=== PATIENT | female | born 1975 | race Caucasian/White ===

== ENCOUNTER 2016-03-01 19:53 | Emergency (ER) | payer MEDICARE ==
[2015-05-21 10:13] VITALS: BMI 45.8
[~2016-03-01 19:53] MED LIST: ATIVAN1 MG PO; BUSPAR10 MG PO; ESTRACE1 MG PO; GLIMEPIRIDE4 MG PO; GLUCOPHAGE500 MG PO; IMIPRAMINE10 MG PO; LEXAPRO5 MG PO; SYNTHROID150 MCG PO; SYNTHROID25 MCG PO; SYNTHROID300 MCG PO; TOFRANIL50 MG PO; TOPAMAX25 MG PO; ULTRAM50 MG PO; VALIUM5 MG PO; VITAMIN D250000 UNIT PO; WELLBUTRIN XL150 M1 PO
[2016-03-01 20:38] LABS: BASOPHILS 0.3 % (0.0-2.0); EOSINOPHILS 1.1 % (0-7); HEMATOCRIT 38.4 % (36.0-48.0); HEMOGLOBIN 13.3 g/dL (12-16); IMMATURE GRANULOCYTES 0.5 % (0-5); LYMPHOCYTES 58.4 % (15-50); MCHC 34.6 g/dL (31.0-37.0); MCV 86.7 fL (80.0-100.0); MEAN PLATELET VOLUME 8.7 fL (7.4-10.4); MONOCYTES 7.5 % (2-11); NEUTROPHILS 32.2 % (40-80); PLATELET COUNT 229 10x3/uL (130-400); RBC 4.43 10x6/uL (4.00-5.40); RDW 13.4 % (11.5-14.5); WBC 6.2 10x3/uL (4.8-10.8)
[2016-03-01 21:08] LABS: ALBUMIN 3.2 g/dL (3.4-5.0); ALKALINE PHOSPHATASE 53 U/L (46-116); ALT (SGPT) 47 U/L (10-68); AMYLASE - SERUM 43 U/L (25-115); BILIRUBIN - TOTAL 0.31 mg/dL (0.2-1.3); CALC OSMOLALITY 285 mosm/kg (275-300); CALCIUM 9.5 mg/dL (8.5-10.1); CARBON DIOXIDE 25.7 mmol/L (21.0-32.0); CHLORIDE - SERUM 100 mmol/L (98-107); CREATININE - SERUM 1.1 mg/dL (0.6-1.3); GLUCOSE 335 mg/dL (74-106); LIPASE 299 U/L (73-393); POTASSIUM - SERUM 4.1 mmol/L (3.5-5.1); PRO BNP 225 pg/mL (0-125); PROTEIN - SERUM 7.1 g/dL (6.4-8.2); SODIUM 137 mmol/L (136-145); THYROID STIMULATING HORMONE 0.04 uIU/mL (0.36-3.74); UREA NITROGEN 11 mg/dL (7-18); eGFR NON AFRICAN AMERICAN 59 mL/min (90-120)
[2016-03-01 21:09] LABS: TROPONIN-I < 0.017 ng/mL (0.000-0.060)
== END 2016-03-01 23:57 | disposition home or self-care (01) ==
LOC: D.ER 19:53
PROVIDERS: Family Medicine
DX: J06.9 Acute upper respiratory infection, unspecified (principal); F41.9 Anxiety disorder, unspecified; F32.9 Major depressive disorder, single episode, unspecified; E11.9 Type 2 diabetes mellitus without complications

== ENCOUNTER 2016-03-11 13:14 | Inpatient (IN) | payer MEDICARE ==
[~2016-03-11] VITALS: Ht 165.1 cm; Wt 77.0 kg
[2016-03-11 14:29] LABS: BASOPHILS 0.2 % (0.0-2.0); EOSINOPHILS 2.1 % (0-7); HEMATOCRIT 37.4 % (36.0-48.0); HEMOGLOBIN 12.9 g/dL (12-16); IMMATURE GRANULOCYTES 0.4 % (0-5); LYMPHOCYTES 47.4 % (15-50); MCH 29.7 pg (26.0-34.0); MCHC 34.5 g/dL (31.0-37.0); MONOCYTES 7.2 % (2-11); NEUTROPHILS 42.7 % (40-80); PLATELET COUNT 219 10x3/uL (130-400); RBC 4.35 10x6/uL (4.00-5.40); RDW 13.8 % (11.5-14.5); WBC 4.9 10x3/uL (4.8-10.8)
[2016-03-11 14:58] LABS: APPEARANCE HAZY (CLEAR); BILIRUBIN NEGATIVE (NEGATIVE); COLOR YELLOW (YELLOW); GLUCOSE 1000 mg/dL (NEGATIVE); KETONE NEGATIVE (NEGATIVE); LEUKOCYTE ESTERASE NEGATIVE (NEGATIVE); NITRITE NEGATIVE (NEGATIVE); PROTEIN NEGATIVE (NEGATIVE); SPECIFIC GRAVITY 1.015 (1.005-1.020); UROBILINOGEN NORMAL (NORMAL)
[2016-03-11 14:59] LABS: BACTERIA MANY /hpf (NONE SEEN); EPITHELIAL CELLS 0-5 /hpf (0-5); RED CELLS - URINE 0-5 /hpf (0-5); WHITE CELLS - URINE 0-5 /hpf (0-5)
[2016-03-11 15:03] LABS: ALBUMIN 3.4 g/dL (3.4-5.0); ALKALINE PHOSPHATASE 47 U/L (46-116); ALT (SGPT) 33 U/L (10-68); BILIRUBIN - TOTAL 0.26 mg/dL (0.2-1.3); CALC OSMOLALITY 288 mosm/kg (275-300); CALCIUM 9.1 mg/dL (8.5-10.1); CARBON DIOXIDE 24.5 mmol/L (21.0-32.0); CHLORIDE - SERUM 98 mmol/L (98-107); POTASSIUM - SERUM 4.1 mmol/L (3.5-5.1); PROTEIN - SERUM 6.8 g/dL (6.4-8.2); SODIUM 135 mmol/L (136-145); THYROID STIMULATING HORMONE 0.02 uIU/mL (0.36-3.74); UREA NITROGEN 10 mg/dL (7-18); eGFR NON AFRICAN AMERICAN 66 mL/min (90-120)
[2016-03-11 15:10] LABS: GLUCOSE 462 mg/dL (74-106)
[2016-03-11 15:29] LABS: KETONE - SERUM SMALL mg/dL (NEGATIVE)
--- NOTE | 2016-03-11 16:36 | NUR ---
Patient Name: JANN Coppola RUBALCAVA Admission Status: ER Accout number: [id number] Admission Date: 03-11-2016 : 1975 Admission Diagnosis: hyperglycemia Attending: SHAMIR Current LOS: 1 Anticipated DC Date: 03/13/16 Planned Disposition: Return home to her parents home. Primary Insurance: MEDICARE A & B Discharge Planning Comments: CM met with patient to complete initial discharge planning assessment. Patient gave consent to complete assessment. Patient lives at home with her parents. She has cerebral palsy and reports she is independent in her care at home. She uses a walker, glucometer, shower chair, CPAP, and has home O2. She is in need for another sleep study to get another CPAP. She reports she does not have a PCP at this time and she is looking for a pcp. She also reports her mother just had a heart attack. She reports she will return home to her parents at discharge. Cm will continue to follow and assist as needed with dc plans/needs. Manager Personal: Colleen Lozoya RN, CCM Is the patient Alert and Oriented? Yes * How many steps to enter\exit or inside your home? 3 * PCP Does not have one at this time. * Pharmacy [facility] [address] * Preadmission Environment Home with Family * ADLs Independent * Equipment CPAP Glucometer Shower Chair * List name and contact numbers for known caregivers / representatives who currently or will assist patient after discharge: Winsome Palma- Mother - [phone] * Community resources currently utilized None * Additional services required to return to the preadmission environment? No * Can the patient safely return to the preadmission environment? Yes * Has this patient been hospitalized within the prior 30 days at any hospital? No
[2016-03-11 17:11] VITALS: BMI 40.3
[2016-03-11 17:23] VITALS: BP 127/81
[2016-03-11] MEDS ORDERED: GLUCOPHAGE500 MG PO (17:40)
[2016-03-11] MEDS ORDERED: GLIMEPIRIDE2 MG PO (17:40)
[2016-03-11] MEDS ORDERED: SYNTHROID300 MCG PO (17:41)
[2016-03-11] MEDS ORDERED: VITAMIN D31000 UNIT PO (17:42)
[2016-03-11] MEDS ORDERED: ESTRACE1 MG PO (17:43)
[2016-03-11] MEDS ORDERED: PROVENTIL HFA6.7 GM INH (17:44)
[2016-03-11] MEDS ORDERED: TRAZODONE HCL150 MG PO (17:45)
--- NOTE | 2016-03-11 18:55 | NUR ---
PATIENT IN BED WITH IV INTACT. NO COMPLAINTS AT HTIS TIME. SITTING UP SIPPING ON CLEAR LIQUIDS. CALL LIGHT WITHIN REACH.
--- NOTE | 2016-03-11 19:50 | NUR ---
ASSESSMENT COMPLETED, NO ACUTE DISTRESS NOTED, SAFETY PRECAUTIONS IN PLACE, CL IN REACH, WILL MONITOR
[2016-03-11 20:30] VITALS: BP 111/63
--- NOTE | 2016-03-11 21:19 | NUR ---
PRN PAIN MED GIVE FOR C/O L FLANK PAIN 09/20 ALONG WITH 8 UNITS OF INSULIN PER SLIDING SCALE FOR BS OF 195, THEODORA WELL, DENIES FURTHER NEEDS, CL IN REACH
--- NOTE | 2016-03-11 23:41 | NUR ---
IV FLUIDS HUNG PER MAR, THEODORA WELL, CL IN REACH
[2016-03-12] VITALS (8 sets, daily range): BP systolic 105–144; BP diastolic 59–102
--- NOTE | 2016-03-12 01:39 | NUR ---
PERCOCET GIVEN FOR C/O L KIDNEY PAIN 09/20, THEODORA WELL, CL IN REACH
[2016-03-12 06:19] LABS: HEMATOCRIT 35.1 % (36.0-48.0); HEMOGLOBIN 11.7 g/dL (12-16); MCH 29.1 pg (26.0-34.0); MCHC 33.3 g/dL (31.0-37.0); MCV 87.3 fL (80.0-100.0); MEAN PLATELET VOLUME 8.8 fL (7.4-10.4); PLATELET COUNT 189 10x3/uL (130-400); RBC 4.02 10x6/uL (4.00-5.40); RDW 13.9 % (11.5-14.5); WBC 5.4 10x3/uL (4.8-10.8)
[2016-03-12 06:45] LABS: CALCIUM 8.2 mg/dL (8.5-10.1); CARBON DIOXIDE 23.2 mmol/L (21.0-32.0); CHLORIDE - SERUM 106 mmol/L (98-107); POTASSIUM - SERUM 3.7 mmol/L (3.5-5.1); SODIUM 139 mmol/L (136-145); UREA NITROGEN 8 mg/dL (7-18)
[2016-03-12 06:46] LABS: CALC OSMOLALITY 278 mosm/kg (275-300); CREATININE - SERUM 0.7 mg/dL (0.6-1.3); GLUCOSE 155 mg/dL (74-106); eGFR NON AFRICAN AMERICAN > 90 mL/min (90-120)
--- NOTE | 2016-03-12 06:55 | NUR ---
PRN PAIN AND NAUSEA MEDS GIVEN FOR C/O KIDNEY PAIN AND NAUSEA, THEODORA WELL, CL IN REACH
[2016-03-12 07:32] LABS: EOSINOPHILS 6 % (0-7); LYMPHOCYTES 47 % (15-50); MONOCYTES 6 % (2-11); NEUTROPHILS 39 % (40-80); PLATELET ESTIMATE NORMAL
--- NOTE | 2016-03-12 08:00 | NUR ---
ASSESSMENT PER FLOW SHEET.PT WITHOUT DISTRESS.CALL LIGHT IN REACH
--- NOTE | 2016-03-12 11:30 | NUR ---
FSBS 230 MEDS ORDERED PER MAR.PAIN 8/10 SCALE TO FLANK/PELVIC REGION,MEDS ORDERED PER MAR
--- NOTE | 2016-03-12 16:00 | NUR ---
URINE TO LAB ORDERED
[2016-03-12 16:54] LABS: APPEARANCE CLEAR (CLEAR); COLOR YELLOW (YELLOW)
[2016-03-12 16:55] LABS: BILIRUBIN NEGATIVE (NEGATIVE); GLUCOSE NEGATIVE (NEGATIVE); KETONE NEGATIVE (NEGATIVE); LEUKOCYTE ESTERASE NEGATIVE (NEGATIVE); NITRITE NEGATIVE (NEGATIVE); PROTEIN NEGATIVE (NEGATIVE); UROBILINOGEN NORMAL (NORMAL)
--- NOTE | 2016-03-12 18:11 | NUR ---
tolerated reg diabetic diet without emesis.pain 4/10 scale to lower back/pelvic region.without change.cont plan of care
--- NOTE | 2016-03-12 18:34 | NUR ---
CALL TO GAVI CHRISTINA APN.PT HAS SWALLOWED TAB OFF OF COKE CAN.SHE STATES SHE CAN FEEL THE TAB IN HER THROAT.SHA IS WITHOUT RESP DISTRESS,BUT IS VERY ANXIOUS
--- NOTE | 2016-03-12 18:42 | NUR ---
ORDERS RECIEVED AND INITIATED PER GAVI SHERIFF APN
--- NOTE | 2016-03-12 18:47 | NUR ---
CALL FROM .ORDERS RECIEVED AND INITIATED
--- NOTE | 2016-03-12 20:00 | NUR ---
RETURNED FROM X-RAY, PT UP TO SHOWER, NO ACUTE DISTRESS NOTED, CL IN REACH
--- NOTE | 2016-03-12 20:43 | NUR ---
MEDS GIVEN PER MAR, 4 UNITS OF INSULIN PER SLIDING SCALE FOR BS OF 162, THEODORA WELL, CL IN REACH
--- NOTE | 2016-03-12 21:15 | NUR ---
PT REPORTED THAT SHE BROKE A SPOON OFF AT THE BASE AND SWALLOWED IT, BOTTOM OF SPOON NOTED IN CUP, ALL MATERIALS REMOVED FROM PT'S REACH, CENTRAL OFFICE TROUBLE SHOOTER SITTING WITH PATIENT TO MONITOR FOR SAFETY, DR US CONTACTED.
--- NOTE | 2016-03-12 21:18 | NUR ---
ORDERS RECIEVED FOR X-RAY AND TRANSFER TO ICU WITH PSYCH EVAL
--- NOTE | 2016-03-12 21:22 | NUR ---
PATIENT TAKEN TO XRAY
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
--- NOTE | 2016-03-12 21:45 | NUR ---
SPOKE WITH DR. US AT LENGTH REGARDING PT'S CONDITION OF CONFIRMED INJESTION OF FOREIGN BODY, THE LONG SLENDER END OF A METAL EATING SPOON, AND RECEIVED ORDERS TO CONSULT GI
--- NOTE | 2016-03-12 22:00 | NUR ---
RECEIVED CALL FROM DR. JOHN WHO CONFIRMS DECISION TO CONSULT GI FOR PT'S SITUATION
--- NOTE | 2016-03-12 22:15 | NUR ---
SPOKE WITH DR. MEDLEY AT LENGTH ABOUT PT'S CONDITION AND CONSULT REQUESTED. ORDERS TO REPEAT KUB AT 0700 AND SCHEDULE EGD (NOT AT BEDSIDE) TO BE DONE AT 0900. GROUP WORK PROGRAM DIRECTOR NOTIFIED OF NEED FOR SCHEDULING AND PT NOTIFIED OF PLAN OF CARE.
--- NOTE | 2016-03-12 22:30 | NUR ---
MOTHER CONTACTED TO INFORM OF TRANSFER, NO ANSWER, MESSAGE LEFT FOR FAMILY TO CONTACT HOSPITAL
--- NOTE | 2016-03-12 23:05 | NUR ---
TUCKER HASKINS, MOTHER OF PATIENT RETURNED CALL, INFORMED OF PATIENT TRANSFER TO ICU, PHONE NUMBER GIVEN
[2016-03-13] VITALS (12 sets, daily range): BP systolic 124–165; BP diastolic 84–109; Ht 165.1 cm; Wt 77.0 kg
--- NOTE | 2016-03-13 | NUR ---
PT IS LYING QUIETLY IN BED. MONITORED PER STANDARD ICU PROTOCOL CONSTANT VIGILANT MONITORING TO PREVENT PT FROM HARMING SELF. RESP REG AND NONLABORED. VSS
--- NOTE | 2016-03-13 02:39 | NUR ---
PT IS NAPPING INTERMITTENTLY RESTLESS BUT COOPERATIVE.
--- NOTE | 2016-03-13 03:00 | NUR ---
SHIFT REASSESSMENT COMPLETED. SEE FLOWSHEET. PT CONTINUES TO MINIMIZE HER ACTIONS. WILL CONTINUE TO PROVIDE A SAFE ENVIRONMENT
--- NOTE | 2016-03-13 03:56 | NUR ---
CASH PROCESSOR AT BEDSIDE FOR AM LAB DRAW
[2016-03-13 04:22] LABS: BASOPHILS 0.4 % (0.0-2.0); EOSINOPHILS 3.3 % (0-7); HEMATOCRIT 34.9 % (36.0-48.0); HEMOGLOBIN 12.1 g/dL (12-16); IMMATURE GRANULOCYTES 0.2 % (0-5); LYMPHOCYTES 51.7 % (15-50); MCH 29.7 pg (26.0-34.0); MCHC 34.7 g/dL (31.0-37.0); MCV 85.5 fL (80.0-100.0); MEAN PLATELET VOLUME 8.7 fL (7.4-10.4); MONOCYTES 7.1 % (2-11); NEUTROPHILS 37.3 % (40-80); PLATELET COUNT 206 10x3/uL (130-400); RBC 4.08 10x6/uL (4.00-5.40); RDW 13.6 % (11.5-14.5); WBC 5.4 10x3/uL (4.8-10.8)
[2016-03-13 04:42] LABS: ALBUMIN 2.9 g/dL (3.4-5.0); ALKALINE PHOSPHATASE 37 U/L (46-116); ALT (SGPT) 35 U/L (10-68); CALCIUM 8.2 mg/dL (8.5-10.1); CARBON DIOXIDE 24.5 mmol/L (21.0-32.0); CHLORIDE - SERUM 104 mmol/L (98-107); CREATININE - SERUM 0.8 mg/dL (0.6-1.3); GLUCOSE 146 mg/dL (74-106); POTASSIUM - SERUM 3.6 mmol/L (3.5-5.1); PROTEIN - SERUM 6.2 g/dL (6.4-8.2); SODIUM 137 mmol/L (136-145); eGFR NON AFRICAN AMERICAN 85 mL/min (90-120)
[2016-03-13 04:43] LABS: CALC OSMOLALITY 273 mosm/kg (275-300); UREA NITROGEN 5 mg/dL (7-18)
--- NOTE | 2016-03-13 06:55 | NUR ---
RADIOLOGY AT BEDSIDE FOR KUB. PT HAS BEEN SLEEPING WELL FOR PAST HOUR. DID HAVE A PERIOD OF ANXIETY THAT WAS REDIRECTABLE
--- NOTE | 2016-03-13 06:59 | NUR ---
CALL PLACED TO MOTHER, TUCKER HASKINS, MOTHER STATES HER WILL BE HERE PRIOR TO SURGERY TO COMPLETE ANY PAPERWORK NECESSARY. QUESTIONS ANSWERED AND UPDATE GIVEN
--- NOTE | 2016-03-13 07:00 | NUR ---
REPORT RECEIVED. ASSESSMENT COMPLETED. PATIENT DENIES NEEDS AT THIS TIME.
--- NOTE | 2016-03-13 08:47 | NUR ---
PATIENT TAKEN TO GI LAB
--- NOTE | 2016-03-13 10:08 | NUR ---
PATIENT BACK FROM GI LAB. WILL GET HER SETTLED IN.
--- NOTE | 2016-03-13 10:31 | NUR ---
AFTER PATIENT STATED SHE WOULD TAKE HER ORAL MEDS, SHE REFUSED THEM. SHE SAID THAT SHE TOLD DR MONROY SHE WASN'T ABLE TO SWALLOW SO HE PROMISED HER IV PAIN MEDICATIONS. SHE ONLY WANTS MEDICATION IN HER IV.
--- NOTE | 2016-03-13 10:39 | NUR ---
PATIENT DEMANDING TO SPEAK TO THE MACHINERY REPAIR MAINTENANCE SUPERVISOR ABOUT DR SHERWOOD. CALL PLACED TO ADMINISTRATION TO RELAY THIS. IT WAS REQUESTED THAT I CALL AND SPEAK WITH MARIBELL RIVERA. CALL WAS PLACED TO HER, SITUTATION EXPLAINED, AND SHE SAID THAT SHE WOULD BE UP HERE IN A LITTLE BIT.
--- NOTE | 2016-03-13 13:06 | NUR ---
HAVE SPOKE WITH DR US ABOUT POSSIBLE TRANSFERRING THE PATIENT TO THE FLOOR. SHE WANTS TO KEEP THE PATIENT ANOTHER NIGHT. THIS WAS TOLD TO THE CHARGE NURSE.
--- NOTE | 2016-03-13 13:56 | NUR ---
SPOKE WITH MARIBELL ROTH WHO STATED THAT SHE SPOKE WITH DR US AND SHE SAID TO TRANSFER PATIENT TO THE FLOOR. WILL PUT THE ORDER IN PER IRA.
--- NOTE | 2016-03-13 14:05 | NUR ---
REPORT CALLED TO [facility] ON MED 2. PATIENT WILL TRANSFER TO RM 2132 VIA WHEELCHAIR.
--- NOTE | 2016-03-13 14:30 | NUR ---
TRANSFER FROM ICU BY W/C. OREINTED TO ROOM. CALL LIGHT IN REACH. WILL CONT. PLAN OF CARE.
--- NOTE | 2016-03-13 19:30 | NUR ---
ASSESSMENT COMPLETE, DENIES NEEDS AT THIS TIME. HOB UP SR UP X2, C/L IN REACH. ALERT AND ORIENTED X3, RESP UNLAB. LEFT FA IV WITH NO R/S NOTED AT SITE. NS INFUSING W/O DIFF VIA PUMP. NOT WEARING SCDS AT THIS TIME. UP AD NICOLETTE W/O DIFF.LEGALLY BLIND. CONTINUE TO MONITOR.
--- NOTE | 2016-03-14 01:17 | NUR ---
AWAKE, ALERT, WANTING PAIN PILL, INFORMED THAT IT WASNT TIME. UNDERSTANDING VERBALIZED. C/L IN REACH. CONTINUE TO MONITOR.
[2016-03-14 02:18] VITALS: BP 150/87
[2016-03-14 06:42] VITALS: BP 140/94
[2016-03-14 07:20] LABS: BASOPHILS 0.2 % (0.0-2.0); EOSINOPHILS 2.5 % (0-7); HEMATOCRIT 36.2 % (36.0-48.0); HEMOGLOBIN 12.4 g/dL (12-16); IMMATURE GRANULOCYTES 0.4 % (0-5); LYMPHOCYTES 53.5 % (15-50); MCH 29.4 pg (26.0-34.0); MCHC 34.3 g/dL (31.0-37.0); MCV 85.8 fL (80.0-100.0); MEAN PLATELET VOLUME 8.8 fL (7.4-10.4); NEUTROPHILS 35.4 % (40-80); PLATELET COUNT 209 10x3/uL (130-400); RBC 4.22 10x6/uL (4.00-5.40); RDW 13.8 % (11.5-14.5); WBC 5.1 10x3/uL (4.8-10.8)
[2016-03-14 07:32] LABS: ALBUMIN 2.9 g/dL (3.4-5.0); ALKALINE PHOSPHATASE 41 U/L (46-116); ALT (SGPT) 35 U/L (10-68); BILIRUBIN - TOTAL 0.38 mg/dL (0.2-1.3); CALC OSMOLALITY 277 mosm/kg (275-300); CALCIUM 8.3 mg/dL (8.5-10.1); CARBON DIOXIDE 25.8 mmol/L (21.0-32.0); CHLORIDE - SERUM 104 mmol/L (98-107); CREATININE - SERUM 0.8 mg/dL (0.6-1.3); GLUCOSE 167 mg/dL (74-106); POTASSIUM - SERUM 3.4 mmol/L (3.5-5.1); PROTEIN - SERUM 6.4 g/dL (6.4-8.2); SODIUM 138 mmol/L (136-145); eGFR NON AFRICAN AMERICAN 85 mL/min (90-120)
[2016-03-14 07:35] LABS: UREA NITROGEN 7 mg/dL (7-18)
[2016-03-14 08:56] VITALS: BP 135/69
--- NOTE | 2016-03-14 09:52 | NUR ---
PT RESTING IN BED. ALERT ORIENTED CONVERSANT. PT ADMITS TO BEING LEGALLY BLIND, STATES THAT SHE DOES NOT NOT HAVE HER GLASSES WITH HER. PROVIDED PERCOCET 10 PER PT REQUEST FOR ABD PAIN. PT HAS DOCUMENTED HISTORY OF SWALLOING INEDIBLE FOREIGN OBJECTS. NO METAL OBJECTS PRESENT IN ROOM.44
--- NOTE | 2016-03-14 12:22 | NUR ---
Nutrition follow-up: Diet: ADA consistent CHO PO intake ~50% of meals Labs reviewed +BM Wt: 251# PO intake fair at this time. Will continue to provide food choices and honor food preferences within diet restrictions. RDN following.
[2016-03-14 12:28] VITALS: BP 154/108
[2016-03-14 15:44] VITALS: BP 143/110
--- NOTE | 2016-03-14 16:38 | NUR ---
IV PATENT. VISITOR AT BS. CALL LIGHT IN REACH. WILL MONITOR.
--- NOTE | 2016-03-14 20:03 | NUR ---
PT RESTING IN BED. ALERT/ORIENTED. NS @ 50ML/HR INFUSING TO LFA. PT WILL BE NPO AFTER MIDNIGHT TONIGHT FOR US OF ABDOMEN IN AM. INSTRUCTIONS GIVEN. SEE ASSESSMENT. CPOC.
[2016-03-14 22:30] VITALS: BP 164/102
--- NOTE | 2016-03-14 22:38 | NUR ---
HS MEDS GIVEN, INCLUDING REQUESTED PAIN AND NAUSEA MEDS. PT HAS BEEN UPSET OVER DISCUSSIONS SHE WAS MADE AWARE OF REGARDING HER ISSUE OF SWALLOWING A METAL SPOON HANDLE. SPENT TIME TALKING WITH PATIENT, ENCOURAGING HER WITH POSITIVE SUPPORT. WILL FOLLOW UP. PT IS NOW STILL AWAKE, STILL IN A FRAGILE STATE OF MIND WITH FEELING IF OTHERS ARE TALKING ABOUT HER. BRIQUETTE MACHINE OPERATOR HELPER BROUGHT PT A RECLINER AND SHE IS NOW UP AND IN CHAIR WATCHING TV. AMUSEMENT PARK ENTERTAINER HAS BEEN MADE AWARE OF ISSUE THAT HAS UPSET PATIENT AND FOLLOW UP WILL BE DONE.
[2016-03-15] VITALS (7 sets, daily range): BP systolic 134–185; BP diastolic 53–115
[2016-03-15 06:08] LABS: BASOPHILS 0.2 % (0.0-2.0); EOSINOPHILS 3.7 % (0-7); HEMATOCRIT 35.1 % (36.0-48.0); HEMOGLOBIN 12.2 g/dL (12-16); IMMATURE GRANULOCYTES 0.2 % (0-5); LYMPHOCYTES 55.6 % (15-50); MCH 29.5 pg (26.0-34.0); MCHC 34.8 g/dL (31.0-37.0); MCV 84.8 fL (80.0-100.0); MEAN PLATELET VOLUME 8.6 fL (7.4-10.4); MONOCYTES 7.3 % (2-11); PLATELET COUNT 213 10x3/uL (130-400); RBC 4.14 10x6/uL (4.00-5.40); RDW 13.7 % (11.5-14.5); WBC 5.2 10x3/uL (4.8-10.8)
[2016-03-15 06:34] LABS: ALBUMIN 2.8 g/dL (3.4-5.0); ANION GAP 11.7 mmol/L (8-16); BILIRUBIN - TOTAL 0.31 mg/dL (0.2-1.3); CALCIUM 8.8 mg/dL (8.5-10.1); CARBON DIOXIDE 25.9 mmol/L (21.0-32.0); CREATININE - SERUM 0.9 mg/dL (0.6-1.3); POTASSIUM - SERUM 3.6 mmol/L (3.5-5.1); PROTEIN - SERUM 6.2 g/dL (6.4-8.2)
--- NOTE | 2016-03-15 07:40 | NUR ---
PT SITTING UP IN BED DENIES NEEDS WILL CONT TO MONITOR.
--- NOTE | 2016-03-15 11:06 | NUR ---
Nutrititon Consult: Consult received for DM education. Pt reported that she has taken DM classes in the past and does not have any questions at this time. Written information was left with pt. RD name and phone number provided to pt; pt was encouraged to contact RD with any questions/concerns. Thank you for the consult. RD will continue to monitor pt progress.
--- NOTE | 2016-03-15 12:24 | NUR ---
PT SITTING UP IN BED DENIES NEEDS AT THIS TIME WILL CONT TO MONITOR. PT HAD HER ABD ULTRASOUND THIS AM.
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
--- NOTE | 2016-03-15 13:40 | NUR ---
PT CO DIZZINESS AND NAUSEA. TOOK BP 180/115. GAVI HERE SPA MANAGER. TOLD HER PT SITUATION SHE ORDERED APPRESOLINE 10MG ONE TIME. WILL CONTINUE TO MONITOR PT.
--- NOTE | 2016-03-15 17:06 | NUR ---
PT SITTING UP IN BED TALKING ON THE PHONE DENIES NEEDS. PT ON THE CALL LIGHT OFTEN TODAY. WHEN I GO INTO THE ROOM PT IS ON THE PHONE TALKING. WHEN SHE SEES ME SHE HANGS UP THE PHONE AND STARTS TO CRY. SAYING THAT SHE IS VERY UNCOMFORTABLE AND IS IN SEVERE PAIN FROM ABDOMINAL CRAMPS. PAIN MEDICINE IS BEING GIVEN PER EMAR. PT IS ALSO CO NAUSEA. NAUSEA MEDS ARE ALSO BEING GIVEN PER EMAR.
--- NOTE | 2016-03-15 18:02 | NUR ---
PT SITTING UP IN BED DENIES NEEDS WILL CONT TO MONITOR.
--- NOTE | 2016-03-15 18:51 | PRO ---
PATIENT:JANN RUBALCAVA MEDICAL RECORD: [id number] : 79 LOCATION:D.M2 D.2132 ADMISSION DATE: 03/11/16 PROCEDURE PERFORMED BY: VASILE ESTEBAN MD DATE OF PROCEDURE: 03/13/2016 SPINNING LATHE OPERATOR AUTOMATIC: Vasile Esteban MD PROCEDURE: EGD with foreign body removal. INDICATION: The patient is a 40-year-old white female with diabetes, who was admitted with DKA, and obviously has some type of psychiatric issues because she decided to break off a handle of metal spoon and swallow it last night. The KUB revealed that the spoon was in her stomach. She is now for EGD for attempted removal. PREMEDICATION: TIVA for anesthesia. INSTRUMENT: Olympus video gastroscope. FINDINGS: The endoscope was passed through the oropharynx to the second portion of the duodenum without difficulty. The esophagus, stomach, and duodenum were all unremarkable. The spoon actually had just passed through the stomach and was in the second portion of the duodenum. With some bit of difficulty, I was eventually able to remove the spoon by the use of a snare and mainly with alligator forceps. The patient tolerated the procedure well without any complication. IMPRESSION: 1. Foreign body removal from the duodenum (11 cm metal spoon handle). 2. Otherwise, normal esophagogastroduodenoscopy. RECOMMENDATIONS: 1. Psychiatric consult. 2. The patient should not have any metal object in her room at all. TRANSINT:[id number] Voice Confirmation ID: [id number] DOCUMENT ID: [id number] VASILE ESTEBAN MD at 1851 CC: RONEL US MD [id number] DICTATION DATE: 03/13/16 0943 POST PARTUM NURSE: 03/13/16 1032 ADM IN [facility] [address] [place] [place] [id number]
--- NOTE | 2016-03-15 20:20 | NUR ---
PT UP AND INDEPENDENTLY IN BATHROOM. STATES FEELING BETTER, BUT HAS NO APPETITE. HER HAS BROUGHT HER SEVERAL OUTSIDE FOOD SOURCES (PIZZA, CHICKEN) AND ALL ARE UNTOUCHED AT THE BEDSIDE. IVF NS @ 50ML/HR INFUSING TO LFA. PT SPIRITS SEEM MORE UPLIFTED TODAY. SEE ASSESSMENT. CPOC.
--- NOTE | 2016-03-15 21:29 | NUR ---
HS MEDS GIVEN. FSBS 179, HAS EATEN VERY LITTLE, DECISION TO HOLD SLIDING SCALE INSULIN. WILL MONITOR. REQUESTED PAIN AND NAUSEA MEDS GIVEN.
[2016-03-16 00:52] VITALS: BP 170/101
--- NOTE | 2016-03-16 04:33 | NUR ---
REQUESTED PAIN AND NAUSEA MEDICATION GIVEN. IVF INFUSING. CPOC.
[2016-03-16 05:04] VITALS: BP 181/94
[2016-03-16 05:25] LABS: BASOPHILS 0.2 % (0.0-2.0); EOSINOPHILS 3.3 % (0-7); IMMATURE GRANULOCYTES 0.2 % (0-5); LYMPHOCYTES 51.2 % (15-50); MCH 29.2 pg (26.0-34.0); MCHC 34.3 g/dL (31.0-37.0); MCV 85.2 fL (80.0-100.0); MEAN PLATELET VOLUME 8.9 fL (7.4-10.4); MONOCYTES 7.4 % (2-11); NEUTROPHILS 37.7 % (40-80); PLATELET COUNT 237 10x3/uL (130-400); RBC 4.11 10x6/uL (4.00-5.40); RDW 13.5 % (11.5-14.5); WBC 5.8 10x3/uL (4.8-10.8)
[2016-03-16 05:48] LABS: ALBUMIN 2.8 g/dL (3.4-5.0); ALKALINE PHOSPHATASE 38 U/L (46-116); ALT (SGPT) 38 U/L (10-68); CALC OSMOLALITY 280 mosm/kg (275-300); CALCIUM 8.5 mg/dL (8.5-10.1); CARBON DIOXIDE 24.8 mmol/L (21.0-32.0); CHLORIDE - SERUM 105 mmol/L (98-107); CREATININE - SERUM 0.8 mg/dL (0.6-1.3); GLUCOSE 154 mg/dL (74-106); POTASSIUM - SERUM 3.4 mmol/L (3.5-5.1); PROTEIN - SERUM 6.2 g/dL (6.4-8.2); SODIUM 140 mmol/L (136-145); UREA NITROGEN 9 mg/dL (7-18); eGFR NON AFRICAN AMERICAN 85 mL/min (90-120)
--- NOTE | 2016-03-16 06:14 | NUR ---
LAST BP 187/94, MEDICATED WITH HYDRALAZINE 10MG SIVP. WILL MONITOR RESPONSE.
--- NOTE | 2016-03-16 07:32 | NUR ---
PT SLEEPING ARROUSES EASILY DENEIS NEEDS WILL CONT TO MONITOR.
[2016-03-16 08:23] VITALS: BP 149/77
--- NOTE | 2016-03-16 11:18 | NUR ---
PT HAS BEEN SLEEPING MOST OF THE DAY. DENIES NEEDS WILL CONT TO MONITOR
[2016-03-16 12:03] VITALS: BP 164/112
[2016-03-16] MEDS ORDERED: LISINOPRIL10 MG PO (13:46)
--- NOTE | 2016-03-16 15:37 | NUR ---
Patient Name: JANN RUBALCAVA Encounter No: [id number] : 1975 Primary Insurance: MEDICARE A & B Anticipated DC Date: 03-16-2016 Planned Disposition: Home DCP follow-up note: CM MET WITH PT IN ROOM TO DISCUSS DISCHARGE NEEDS AND PLANNING. CM DISCUSSED AVAILABILITY OF HOME HEALTH, REHAB SERVICES AND MEDICAL EQUIPMENT. PT DENIES DISCHARGE NEEDS. PT SEE'S DR. ALYX CAMEJO OUTPATIENT PSYCHIATRIST. PT REPORTS SHE HAD LICENSE TO DRIVE BUT DOES NOT BECAUSE SHE NEEDS THE CORRECT EYEGLASSES THAT SHE DOES NOT HAVE. PT REPORTS HAVING SUPPORT OF HER PARENTS WHO DRIVE HER TO ALL OF HER APPOINTMENTS. PT REPORTS HER PARENTS WILL PICK HER UP TO TRANSPORT HOME AT DISCHARGE TODAY. IMPORTANT MESSAGE FROM MEDICARE PROVIDED AND EXPLAINED. CM SPOKE TO STITCH SEPARATOR AND PROVIDED PSYCHIATRIST INFORMATION, STITCH SEPARATOR CONTACTED PT'S DOCTOR AND MADE OUTPATIENT FOLLOW UP APPOINTMENT FOR PATIENT ORDERED BY MEDICAL DOCTOR. CM PROVIDED PT WITH HEALTHY CONNECTIONS INFORMATION TO ASSIST WITH HER SEARCH FOR PRIMARY DOCTOR CARE AND DISCUSSED HOW TO CALL AND MAKE AN APPOINTMENT. PT DENIED FURTHER DISCHARGE NEEEDS. Mikey Mcdonald, CASE MANAGEMENT
--- NOTE | 2016-03-16 16:01 | NUR ---
WENT OVER DC PAPERWORK WITH PT PT VERBALIZES UNDERSTANDING DC PIV WITH CATHETER TIP INTACT. PT REFUSED WHEELCHAIR AND WALKED HERSELF OUT.
== END 2016-03-16 16:02 | disposition home or self-care (01) | DRG 394 ==
LOC: D.ER 13:14 → D.M2 15:54 → D.MS 15:54 → D.ICU 15:54 → D.M2 03-13 14:05
PROVIDERS: Emergency Medicine; Family Medicine; Internal Medicine Gastroenterology; ADMIT Family Medicine
PROC: 0DC98ZZ Extirpation of Matter from Duodenum, Via Natural or Artificial Opening Endoscopic (ICD-10-PCS; principal; 2016-03-13 09:00)
DX: T18.3XXA Foreign body in small intestine, initial encounter (principal); Z68.41 Body mass index [BMI] 40.0-44.9, adult; F05 Delirium due to known physiological condition; E66.2 Morbid (severe) obesity with alveolar hypoventilation; X58.XXXA Exposure to other specified factors, initial encounter; R16.1 Splenomegaly, not elsewhere classified; K76.0 Fatty (change of) liver, not elsewhere classified; E11.65 Type 2 diabetes mellitus with hyperglycemia; E03.9 Hypothyroidism, unspecified; R56.9 Unspecified convulsions; G80.9 Cerebral palsy, unspecified; I10 Essential (primary) hypertension; F43.20 Adjustment disorder, unspecified; Z72.0 Tobacco use

== ENCOUNTER 2016-04-01 17:05 | Emergency (ER) | payer MEDICARE ==
[2016-03-13 10:24] VITALS: BMI 42.7
[~2016-04-01 17:05] MED LIST changes: +GLIMEPIRIDE2 MG PO; +LISINOPRIL10 MG PO; +PROVENTIL HFA6.7 GM INH; +TRAZODONE HCL150 MG PO; +VITAMIN D31000 UNIT PO
[2016-04-01 17:36] LABS: BASOPHILS 0.2 % (0.0-2.0); EOSINOPHILS 1.8 % (0-7); HEMATOCRIT 43.1 % (36.0-48.0); HEMOGLOBIN 15.2 g/dL (12-16); IMMATURE GRANULOCYTES 0.2 % (0-5); LYMPHOCYTES 39.1 % (15-50); MCH 30.2 pg (26.0-34.0); MCHC 35.3 g/dL (31.0-37.0); MCV 85.5 fL (80.0-100.0); MEAN PLATELET VOLUME 9.3 fL (7.4-10.4); MONOCYTES 5.9 % (2-11); NEUTROPHILS 52.8 % (40-80); PLATELET COUNT 256 10x3/uL (130-400); RBC 5.04 10x6/uL (4.00-5.40); RDW 13.1 % (11.5-14.5); WBC 9.9 10x3/uL (4.8-10.8)
[2016-04-01 17:52] LABS: ALBUMIN 3.7 g/dL (3.4-5.0); ALKALINE PHOSPHATASE 50 U/L (46-116); ALT (SGPT) 24 U/L (10-68); BILIRUBIN - TOTAL 0.46 mg/dL (0.2-1.3); CALC OSMOLALITY 281 mosm/kg (275-300); CALCIUM 9.2 mg/dL (8.5-10.1); CARBON DIOXIDE 23.7 mmol/L (21.0-32.0); CHLORIDE - SERUM 97 mmol/L (98-107); GLUCOSE 366 mg/dL (74-106); POTASSIUM - SERUM 3.9 mmol/L (3.5-5.1); PROTEIN - SERUM 7.8 g/dL (6.4-8.2); SODIUM 134 mmol/L (136-145); UREA NITROGEN 11 mg/dL (7-18); eGFR NON AFRICAN AMERICAN 66 mL/min (90-120)
[2016-04-01 18:02] LABS: THYROID STIMULATING HORMONE 0.01 uIU/mL (0.36-3.74)
[2016-04-01 18:04] LABS: KETONE - SERUM SMALL mg/dL (NEGATIVE)
[2016-04-01 18:16] LABS: APPEARANCE CLOUDY (CLEAR); COLOR YELLOW (YELLOW); SPECIFIC GRAVITY 1.025 (1.005-1.020)
[2016-04-01 18:22] LABS: BILIRUBIN NEGATIVE (NEGATIVE); GLUCOSE 1000 mg/dL (NEGATIVE); KETONE NEGATIVE (NEGATIVE); LEUKOCYTE ESTERASE TRACE (NEGATIVE); NITRITE NEGATIVE (NEGATIVE); PROTEIN NEGATIVE (NEGATIVE); UROBILINOGEN NORMAL (NORMAL)
[2016-04-01 18:23] LABS: BACTERIA MODERATE /hpf (NONE SEEN); RED CELLS - URINE OCC /hpf (0-5); YEAST RARE /hpf (NONE SEEN)
== END 2016-04-01 19:35 | disposition home or self-care (01) ==
LOC: D.ER 17:05
PROVIDERS: Emergency Medicine
DX: E11.65 Type 2 diabetes mellitus with hyperglycemia (principal); N39.0 Urinary tract infection, site not specified; F41.9 Anxiety disorder, unspecified; F32.9 Major depressive disorder, single episode, unspecified

== ENCOUNTER 2016-04-10 17:22 | Emergency (ER) | payer MEDICARE ==
[2016-03-13 10:24] VITALS: BMI 42.7
[2016-04-10 18:09] LABS: BASOPHILS 0.2 % (0.0-2.0); EOSINOPHILS 1.9 % (0-7); HEMATOCRIT 43.5 % (36.0-48.0); HEMOGLOBIN 15.2 g/dL (12-16); IMMATURE GRANULOCYTES 0.2 % (0-5); LYMPHOCYTES 44.3 % (15-50); MCH 30.2 pg (26.0-34.0); MCHC 34.9 g/dL (31.0-37.0); MCV 86.5 fL (80.0-100.0); MEAN PLATELET VOLUME 9.1 fL (7.4-10.4); MONOCYTES 6.5 % (2-11); NEUTROPHILS 46.9 % (40-80); RBC 5.03 10x6/uL (4.00-5.40); RDW 12.9 % (11.5-14.5); WBC 9.7 10x3/uL (4.8-10.8)
[2016-04-10 18:17] LABS: PLATELET COUNT 311 10x3/uL (130-400)
[2016-04-10 18:22] LABS: APPEARANCE CLEAR (CLEAR); BILIRUBIN NEGATIVE (NEGATIVE); COLOR YELLOW (YELLOW); GLUCOSE 100 mg/dL (NEGATIVE); KETONE NEGATIVE (NEGATIVE); LEUKOCYTE ESTERASE NEGATIVE (NEGATIVE); NITRITE NEGATIVE (NEGATIVE); PROTEIN NEGATIVE (NEGATIVE); SPECIFIC GRAVITY 1.015 (1.005-1.020); UROBILINOGEN NORMAL (NORMAL)
[2016-04-10 18:40] LABS: ANION GAP 17.2 mmol/L (8-16); BILIRUBIN - TOTAL 0.4 mg/dL (0.2-1.3); CALCIUM 9.5 mg/dL (8.5-10.1); CARBON DIOXIDE 23.7 mmol/L (21.0-32.0); POTASSIUM - SERUM 3.9 mmol/L (3.5-5.1); PROTEIN - SERUM 7.8 g/dL (6.4-8.2)
== END 2016-04-10 20:32 | disposition home or self-care (01) ==
LOC: D.ER 17:22
PROVIDERS: Emergency Medicine
DX: M54.5 Low back pain (principal); F41.9 Anxiety disorder, unspecified; F32.9 Major depressive disorder, single episode, unspecified; E11.9 Type 2 diabetes mellitus without complications; F17.200 Nicotine dependence, unspecified, uncomplicated

== ENCOUNTER 2016-04-12 12:16 | Emergency (ER) | payer MEDICARE ==
[2016-03-13 10:24] VITALS: BMI 42.7
[2016-04-12 13:03] LABS: APPEARANCE HAZY (CLEAR); BILIRUBIN NEGATIVE (NEGATIVE); COLOR YELLOW (YELLOW); GLUCOSE 1000 mg/dL (NEGATIVE); KETONE NEGATIVE (NEGATIVE); LEUKOCYTE ESTERASE NEGATIVE (NEGATIVE); NITRITE NEGATIVE (NEGATIVE); PROTEIN NEGATIVE (NEGATIVE); UROBILINOGEN NORMAL (NORMAL)
[2016-04-12 13:27] LABS: HEMOGLOBIN A1C 8.5 % (4.8-6.0)
[2016-04-12 13:29] LABS: KETONE - SERUM NEGATIVE (NEGATIVE)
[2016-04-12 13:31] LABS: ALBUMIN 3.3 g/dL (3.4-5.0); ALKALINE PHOSPHATASE 47 U/L (46-116); ALT (SGPT) 24 U/L (10-68); BILIRUBIN - TOTAL 0.34 mg/dL (0.2-1.3); CALCIUM 8.9 mg/dL (8.5-10.1); CARBON DIOXIDE 24.9 mmol/L (21.0-32.0); CHLORIDE - SERUM 104 mmol/L (98-107); CREATININE - SERUM 1.1 mg/dL (0.6-1.3); POTASSIUM - SERUM 4.3 mmol/L (3.5-5.1); SODIUM 139 mmol/L (136-145); eGFR NON AFRICAN AMERICAN 59 mL/min (90-120)
[2016-04-12 13:33] LABS: BASOPHILS 0.2 % (0.0-2.0); EOSINOPHILS 1.8 % (0-7); HEMATOCRIT 38.7 % (36.0-48.0); HEMOGLOBIN 13.2 g/dL (12-16); IMMATURE GRANULOCYTES 0.3 % (0-5); LYMPHOCYTES 38.2 % (15-50); MCH 29.9 pg (26.0-34.0); MCHC 34.1 g/dL (31.0-37.0); MCV 87.6 fL (80.0-100.0); MEAN PLATELET VOLUME 9.3 fL (7.4-10.4); MONOCYTES 6.1 % (2-11); NEUTROPHILS 53.4 % (40-80); PLATELET COUNT 243 10x3/uL (130-400); RBC 4.42 10x6/uL (4.00-5.40); RDW 12.6 % (11.5-14.5); WBC 6.3 10x3/uL (4.8-10.8)
[2016-04-12 13:37] LABS: CALC OSMOLALITY 292 mosm/kg (275-300); GLUCOSE 346 mg/dL (74-106)
[2016-04-12 13:38] LABS: UREA NITROGEN 14 mg/dL (7-18)
[2016-04-12 13:40] LABS: THYROID STIMULATING HORMONE 0.08 uIU/mL (0.36-3.74)
== END 2016-04-12 14:48 | disposition home or self-care (01) ==
LOC: D.ER 12:16
PROVIDERS: Emergency Medicine
DX: E11.65 Type 2 diabetes mellitus with hyperglycemia (principal); N20.0 Calculus of kidney

== ENCOUNTER 2016-04-14 07:43 | Emergency (ER) | payer MEDICARE ==
[2016-03-13 10:24] VITALS: BMI 42.7
== END 2016-04-14 08:16 | disposition home or self-care (01) ==
LOC: D.ER 07:43
DX: R11.0 Nausea (principal); S91.352A Open bite, left foot, initial encounter; W54.0XXA Bitten by dog, initial encounter; Y93.89 Activity, other specified; Y92.89 Other specified places as the place of occurrence of the external cause; F19.10 Other psychoactive substance abuse, uncomplicated; F41.9 Anxiety disorder, unspecified; F32.9 Major depressive disorder, single episode, unspecified; E11.9 Type 2 diabetes mellitus without complications

== ENCOUNTER 2016-04-14 12:58 | Emergency (ER) | payer MEDICARE ==
[2016-03-13 10:24] VITALS: BMI 42.7
[2016-04-14 16:27] LABS: UDS - AMPHET NEGATIVE QUAL (NEGATIVE); UDS - BARB NEGATIVE QUAL (NEGATIVE); UDS - BENZO POSITIVE QUAL (NEGATIVE); UDS - COCAINE POSITIVE QUAL (NEGATIVE); UDS - METH NEGATIVE QUAL (NEGATIVE); UDS - OPIATE POSITIVE QUAL (NEGATIVE); UDS - PCP NEGATIVE QUAL (NEGATIVE); UDS - THC POSITIVE QUAL (NEGATIVE)
[2016-04-14 16:30] LABS: APPEARANCE HAZY (CLEAR); BILIRUBIN NEGATIVE (NEGATIVE); COLOR YELLOW (YELLOW); GLUCOSE 1000 mg/dL (NEGATIVE); KETONE SMALL mg/dL (NEGATIVE); LEUKOCYTE ESTERASE NEGATIVE (NEGATIVE); NITRITE NEGATIVE (NEGATIVE); PROTEIN NEGATIVE (NEGATIVE); UROBILINOGEN NORMAL (NORMAL)
[2016-04-14 16:31] LABS: RED CELLS - URINE 0-5 /hpf (0-5); WHITE CELLS - URINE 0-5 /hpf (0-5)
[2016-04-14 16:32] LABS: BACTERIA MODERATE /hpf (NONE SEEN)
== END 2016-04-14 16:53 | disposition home or self-care (01) ==
LOC: D.ER 12:58
PROVIDERS: Emergency Medicine
DX: R10.2 Pelvic and perineal pain (principal); Z91.81 History of falling

== ENCOUNTER 2016-04-20 00:07 | Emergency (ER) | payer MEDICARE ==
[2016-03-13 10:24] VITALS: BMI 42.7
[2016-04-20 01:04] LABS: APPEARANCE CLEAR (CLEAR); BILIRUBIN NEGATIVE (NEGATIVE); COLOR YELLOW (YELLOW); GLUCOSE 500 mg/dL (NEGATIVE); KETONE SMALL mg/dL (NEGATIVE); LEUKOCYTE ESTERASE NEGATIVE (NEGATIVE); NITRITE NEGATIVE (NEGATIVE); PROTEIN NEGATIVE (NEGATIVE); UROBILINOGEN NORMAL (NORMAL)
== END 2016-04-20 01:22 | disposition home or self-care (01) ==
LOC: D.ER 00:07
PROVIDERS: Emergency Medicine
DX: M54.5 Low back pain (principal); S39.012A Strain of muscle, fascia and tendon of lower back, initial encounter; X58.XXXA Exposure to other specified factors, initial encounter; Y93.9 Activity, unspecified; Y92.9 Unspecified place or not applicable; F41.9 Anxiety disorder, unspecified; F32.9 Major depressive disorder, single episode, unspecified; E11.9 Type 2 diabetes mellitus without complications; F17.200 Nicotine dependence, unspecified, uncomplicated

== ENCOUNTER 2016-04-24 17:17 | Emergency (ER) | payer MEDICARE ==
[2016-03-13 10:24] VITALS: BMI 42.7
[2016-04-24 17:54] LABS: APPEARANCE CLEAR (CLEAR); BILIRUBIN NEGATIVE (NEGATIVE); COLOR YELLOW (YELLOW); GLUCOSE 100 mg/dL (NEGATIVE); KETONE NEGATIVE (NEGATIVE); LEUKOCYTE ESTERASE NEGATIVE (NEGATIVE); NITRITE NEGATIVE (NEGATIVE); PROTEIN TRACE mg/dL (NEGATIVE); UROBILINOGEN NORMAL (NORMAL)
[2016-04-24 18:20] LABS: UDS - AMPHET NEGATIVE QUAL (NEGATIVE); UDS - BARB NEGATIVE QUAL (NEGATIVE); UDS - BENZO POSITIVE QUAL (NEGATIVE); UDS - COCAINE POSITIVE QUAL (NEGATIVE); UDS - METH NEGATIVE QUAL (NEGATIVE); UDS - OPIATE NEGATIVE QUAL (NEGATIVE); UDS - PCP NEGATIVE QUAL (NEGATIVE); UDS - THC POSITIVE QUAL (NEGATIVE)
[2016-04-24 18:39] LABS: BASOPHILS 0.2 % (0.0-2.0); EOSINOPHILS 0.9 % (0-7); HEMATOCRIT 40.8 % (36.0-48.0); HEMOGLOBIN 14.3 g/dL (12-16); IMMATURE GRANULOCYTES 0.2 % (0-5); LYMPHOCYTES 42.6 % (15-50); MCH 30.3 pg (26.0-34.0); MCV 86.4 fL (80.0-100.0); MONOCYTES 6.5 % (2-11); NEUTROPHILS 49.6 % (40-80); PLATELET COUNT 256 10x3/uL (130-400); RBC 4.72 10x6/uL (4.00-5.40); RDW 13.2 % (11.5-14.5); WBC 8.5 10x3/uL (4.8-10.8)
[2016-04-24 19:17] LABS: ALBUMIN 3.8 g/dL (3.4-5.0); ANION GAP 15.2 mmol/L (8-16); BILIRUBIN - TOTAL 0.27 mg/dL (0.2-1.3); CALCIUM 8.7 mg/dL (8.5-10.1); CARBON DIOXIDE 25.5 mmol/L (21.0-32.0); CREATININE - SERUM 0.9 mg/dL (0.6-1.3); POTASSIUM - SERUM 3.7 mmol/L (3.5-5.1); PROTEIN - SERUM 7.6 g/dL (6.4-8.2)
== END 2016-04-24 22:45 ==
LOC: D.ER 17:17
PROVIDERS: Family Medicine
DX: F12.10 Cannabis abuse, uncomplicated (principal); F14.10 Cocaine abuse, uncomplicated; F13.10 Sedative, hypnotic or anxiolytic abuse, uncomplicated; F33.9 Major depressive disorder, recurrent, unspecified; F23 Brief psychotic disorder; E11.9 Type 2 diabetes mellitus without complications; F17.200 Nicotine dependence, unspecified, uncomplicated

== ENCOUNTER 2016-05-24 01:10 | Emergency (ER) | payer MEDICARE ==
[2016-03-13 10:24] VITALS: BMI 42.7
[2016-05-24 02:01] LABS: HCG URINE NEGATIVE (NEGATIVE)
[2016-05-24 02:02] LABS: BASOPHILS 0.1 % (0.0-2.0); EOSINOPHILS 1.7 % (0-7); HEMATOCRIT 45.8 % (36.0-48.0); HEMOGLOBIN 15.9 g/dL (12-16); IMMATURE GRANULOCYTES 0.3 % (0-5); LYMPHOCYTES 41.6 % (15-50); MCH 30.3 pg (26.0-34.0); MCHC 34.7 g/dL (31.0-37.0); MCV 87.2 fL (80.0-100.0); MEAN PLATELET VOLUME 9.8 fL (7.4-10.4); MONOCYTES 6.8 % (2-11); NEUTROPHILS 49.5 % (40-80); RBC 5.25 10x6/uL (4.00-5.40); RDW 12.4 % (11.5-14.5); WBC 13.4 10x3/uL (4.8-10.8)
[2016-05-24 02:02] LABS: APPEARANCE CLOUDY (CLEAR); BILIRUBIN NEGATIVE (NEGATIVE); COLOR YELLOW (YELLOW); GLUCOSE NEGATIVE (NEGATIVE); KETONE NEGATIVE (NEGATIVE); LEUKOCYTE ESTERASE TRACE (NEGATIVE); NITRITE NEGATIVE (NEGATIVE); PROTEIN TRACE mg/dL (NEGATIVE); SPECIFIC GRAVITY 1.025 (1.005-1.020); UROBILINOGEN NORMAL (NORMAL)
[2016-05-24 02:04] LABS: PLATELET COUNT 344 10x3/uL (130-400)
[2016-05-24 02:06] LABS: UDS - AMPHET NEGATIVE QUAL (NEGATIVE); UDS - BARB NEGATIVE QUAL (NEGATIVE); UDS - BENZO POSITIVE QUAL (NEGATIVE); UDS - COCAINE POSITIVE QUAL (NEGATIVE); UDS - METH NEGATIVE QUAL (NEGATIVE); UDS - OPIATE NEGATIVE QUAL (NEGATIVE); UDS - PCP NEGATIVE QUAL (NEGATIVE); UDS - THC POSITIVE QUAL (NEGATIVE)
[2016-05-24 02:17] LABS: ALBUMIN 4.4 g/dL (3.4-5.0); ANION GAP 16.8 mmol/L (8-16); BILIRUBIN - TOTAL 0.34 mg/dL (0.2-1.3); CALCIUM 9.9 mg/dL (8.5-10.1); CREATININE - SERUM 1.1 mg/dL (0.6-1.3); POTASSIUM - SERUM 3.8 mmol/L (3.5-5.1); PROTEIN - SERUM 9.3 g/dL (6.4-8.2)
[2016-05-24 02:20] LABS: EPITHELIAL CELLS 0-5 /hpf (0-5); RED CELLS - URINE 0-5 /hpf (0-5)
[2016-05-24 02:21] LABS: AMORPHOUS SEDIMENT <1+ /lpf (NONE SEEN); BACTERIA MODERATE /hpf (NONE SEEN); GRANULAR CAST OCC /lpf (NONE SEEN); HYALINE CAST OCC /lpf (NONE SEEN); MUCUS <1+ /lpf (NONE SEEN)
[2016-05-24 02:25] LABS: THYROID STIMULATING HORMONE 0.06 uIU/mL (0.36-3.74)
== END 2016-05-24 02:20 | disposition home or self-care (01) ==
LOC: D.ER 01:10
PROVIDERS: Family Medicine
DX: Z71.1 Person with feared health complaint in whom no diagnosis is made (principal); Y09 Assault by unspecified means

== ENCOUNTER 2016-05-24 23:07 | Observation (INO) | payer MEDICARE ==
[~2016-05-24] VITALS: Ht 165.1 cm; Wt 90.9 kg
[2016-05-24 23:41] LABS: BASOPHILS 0.1 % (0.0-2.0); EOSINOPHILS 3.6 % (0-7); HEMATOCRIT 38.7 % (36.0-48.0); IMMATURE GRANULOCYTES 0.3 % (0-5); LYMPHOCYTES 49.6 % (15-50); MCH 29.9 pg (26.0-34.0); MCHC 33.6 g/dL (31.0-37.0); MEAN PLATELET VOLUME 9.1 fL (7.4-10.4); MONOCYTES 5.6 % (2-11); NEUTROPHILS 40.8 % (40-80); RBC 4.35 10x6/uL (4.00-5.40); RDW 12.4 % (11.5-14.5)
[2016-05-24 23:48] LABS: PLATELET COUNT 243 10x3/uL (130-400); WBC 7.8 10x3/uL (4.8-10.8)
[2016-05-24 23:50] LABS: HCG SERUM NEGATIVE (NEGATIVE)
[2016-05-24 23:58] LABS: ALBUMIN 3.5 g/dL (3.4-5.0); ANION GAP 16.7 mmol/L (8-16); BILIRUBIN - TOTAL 0.16 mg/dL (0.2-1.3); CALCIUM 8.5 mg/dL (8.5-10.1); CARBON DIOXIDE 23.1 mmol/L (21.0-32.0); CREATININE - SERUM 0.9 mg/dL (0.6-1.3); POTASSIUM - SERUM 3.8 mmol/L (3.5-5.1); PROTEIN - SERUM 7.5 g/dL (6.4-8.2)
[2016-05-25] VITALS (9 sets, daily range): BP systolic 116–163; BP diastolic 68–106; Ht 165.1 cm; Wt 90.9 kg
[2016-05-25 00:09] LABS: THYROID STIMULATING HORMONE 0.03 uIU/mL (0.36-3.74)
[2016-05-25 01:42] LABS: APPEARANCE CLEAR (CLEAR); BILIRUBIN NEGATIVE (NEGATIVE); COLOR YELLOW (YELLOW); GLUCOSE NEGATIVE (NEGATIVE); KETONE NEGATIVE (NEGATIVE); LEUKOCYTE ESTERASE NEGATIVE (NEGATIVE); NITRITE NEGATIVE (NEGATIVE); PROTEIN NEGATIVE (NEGATIVE); UROBILINOGEN NORMAL (NORMAL)
[2016-05-25 01:48] LABS: UDS - AMPHET NEGATIVE QUAL (NEGATIVE); UDS - BARB NEGATIVE QUAL (NEGATIVE); UDS - BENZO POSITIVE QUAL (NEGATIVE); UDS - COCAINE POSITIVE QUAL (NEGATIVE); UDS - METH NEGATIVE QUAL (NEGATIVE); UDS - OPIATE NEGATIVE QUAL (NEGATIVE); UDS - PCP NEGATIVE QUAL (NEGATIVE); UDS - THC POSITIVE QUAL (NEGATIVE)
--- NOTE | 2016-05-25 06:00 | NUR ---
0600: Pt arrived from ER via WC and placed in room 2306 without difficulty. All monitors established and alarms set/on. Pt SR 95 bpm with BP 151/90, Room Air with SPO2 98% RR18x. Pt answering questions of staff and cooperative.
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
--- NOTE | 2016-05-25 16:00 | NUR ---
REPORT CALLED TO SHANNAN.
--- NOTE | 2016-05-25 19:24 | NUR ---
[facility]
--- NOTE | 2016-05-28 14:09 | CN ---
PATIENT NAME:JANN RUBALCAVA MEDICAL RECORD: [id number] : 79 LOCATION:[id number] ADMIT DATE: 05/25/16 ACCOUNT: [id number] CONSULTING PHYSICIAN: REGINA RAMIREZ MD REFERRING PHYSICIAN: TONY CARVALHO MD DATE OF CONSULTATION: 05/25/2016 Psychiatric Consultation IDENTIFYING DATA: The patient is 40 years old and she is admitted to the hospital on a voluntary basis secondary to overdose. CHIEF COMPLAINT: Depression. HISTORY OF PRESENT ILLNESS: The patient reports that she took a large amount of her lisinopril, Remeron, Zoloft and other medications. She says she is not sure exactly what she took or how much, but that it was a lot. She also has a urine drug screen that is positive for both cocaine and marijuana and a benzodiazepine. She indicates that she relapsed recently because of stress associated with her mother and her mother's terminal illness. She endorses numerous neurovegetative depressive symptoms as well as auditory and visual hallucinations. MENTAL STATUS EXAMINATION: The patient is awake, alert and oriented to person, place, time and situation. Her mood is depressed. Her affect is constricted. Thought processes are circumstantial. Memory, concentration and abstraction abilities are moderately impaired and she denies any thoughts of harming others, but endorses suicidal thoughts. She endorses psychotic symptoms. ASSESSMENT: 1. Major depression with psychotic features. 2. Polysubstance abuse. PLAN: The patient will be referred to inpatient psychiatric care once medically stabilized. Her long-term prognosis is guarded. TRANSINT:[id number] Voice Confirmation ID: [id number] DOCUMENT ID: [id number] REGINA RAMIREZ MD at 1409 CC: [id number] DICTATION DATE: 05/25/16 1415 PARCEL POST WEIGHER: 05/25/16 1440 DIS IN 05/25/16 [address] [place] [address]
== END 2016-05-25 19:26 | disposition short-term general hospital (02) ==
LOC: D.ER 23:07 → D.ICU 05-25 03:38 → OBSVTIME 05-25 03:38 → D.ICU 05-25 19:26
PROVIDERS: Family Medicine; ADMIT Emergency Medicine
DX: T46.4X2A Poisoning by angiotensin-converting-enzyme inhibitors, intentional self-harm, initial encounter (principal); T43.222A Poisoning by selective serotonin reuptake inhibitors, intentional self-harm, initial encounter; T43.022A Poisoning by tetracyclic antidepressants, intentional self-harm, initial encounter; F12.10 Cannabis abuse, uncomplicated; F14.10 Cocaine abuse, uncomplicated; F19.10 Other psychoactive substance abuse, uncomplicated; M54.9 Dorsalgia, unspecified; I10 Essential (primary) hypertension; E11.9 Type 2 diabetes mellitus without complications; F32.3 Major depressive disorder, single episode, severe with psychotic features; F41.9 Anxiety disorder, unspecified; G80.9 Cerebral palsy, unspecified; E03.9 Hypothyroidism, unspecified; J45.909 Unspecified asthma, uncomplicated; G40.909 Epilepsy, unspecified, not intractable, without status epilepticus; Z72.0 Tobacco use

== ENCOUNTER 2016-06-18 03:44 | Inpatient (IN) | payer MEDICARE ==
[2016-06-18] VITALS (16 sets, daily range): BP systolic 126–166; BP diastolic 72–126; Ht 165.1 cm; Wt 119.1 kg
[~2016-06-18] VITALS: Ht 165.1 cm; Wt 119.1 kg
[2016-06-18 04:17] LABS: APPEARANCE HAZY (CLEAR); BILIRUBIN NEGATIVE (NEGATIVE); COLOR YELLOW (YELLOW); GLUCOSE NEGATIVE (NEGATIVE); KETONE NEGATIVE (NEGATIVE); NITRITE NEGATIVE (NEGATIVE); PROTEIN NEGATIVE (NEGATIVE); SPECIFIC GRAVITY 1.025 (1.005-1.020); UROBILINOGEN NORMAL (NORMAL)
[2016-06-18 04:20] LABS: BASOPHILS 0.1 % (0-2); EOSINOPHILS 3.3 % (0-7); HEMATOCRIT 38.6 % (36.0-48.0); HEMOGLOBIN 13.5 g/dL (12-16); IMMATURE GRANULOCYTES 0.3 % (0-5); MCH 30.3 pg (26.0-34.0); MCV 86.5 fL (80.0-100.0); MONOCYTES 5.2 % (2-11); NEUTROPHILS 59.1 % (40-80); PLATELET COUNT 287 10x3/uL (130-400); RBC 4.46 10x6/uL (4.00-5.40); RDW 12.5 % (11.5-14.5); WBC 11.6 10x3/uL (4.8-10.8)
[2016-06-18 04:24] LABS: UDS - AMPHET NEGATIVE QUAL (NEGATIVE); UDS - BARB NEGATIVE QUAL (NEGATIVE); UDS - BENZO POSITIVE QUAL (NEGATIVE); UDS - COCAINE POSITIVE QUAL (NEGATIVE); UDS - METH NEGATIVE QUAL (NEGATIVE); UDS - OPIATE NEGATIVE QUAL (NEGATIVE); UDS - PCP NEGATIVE QUAL (NEGATIVE); UDS - THC POSITIVE QUAL (NEGATIVE)
[2016-06-18 04:29] LABS: BACTERIA MODERATE /hpf (NONE SEEN); LEUKOCYTE ESTERASE TRACE (NEGATIVE); MUCUS <1+ /lpf (NONE SEEN); RED CELLS - URINE >50 /hpf (0-5)
[2016-06-18 04:30] LABS: ALBUMIN 3.3 g/dL (3.4-5.0); ALKALINE PHOSPHATASE 47 U/L (46-116); ALT (SGPT) 23 U/L (10-68); BILIRUBIN - TOTAL 0.16 mg/dL (0.2-1.3); CALC OSMOLALITY 280 mosm/kg (275-300); CALCIUM 8.8 mg/dL (8.5-10.1); CARBON DIOXIDE 26.5 mmol/L (21.0-32.0); CHLORIDE - SERUM 105 mmol/L (98-107); HCG SERUM NEGATIVE (NEGATIVE); POTASSIUM - SERUM 3.4 mmol/L (3.5-5.1); PROTEIN - SERUM 7.1 g/dL (6.4-8.2); SODIUM 140 mmol/L (136-145); UREA NITROGEN 10 mg/dL (7-18); eGFR NON AFRICAN AMERICAN 66 mL/min (90-120)
[2016-06-18 04:33] LABS: GLUCOSE 160 mg/dL (74-106)
[2016-06-18 04:42] LABS: AMYLASE - SERUM 36 U/L (25-115); CREATINE KINASE 106 UL (21-215); LIPASE 255 U/L (73-393); PRO BNP 362 pg/mL (0-125); THYROID STIMULATING HORMONE 0.17 uIU/mL (0.36-3.74)
[2016-06-18 04:43] LABS: TROPONIN-I < 0.017 ng/mL (0.000-0.060)
[2016-06-18] MEDS ORDERED: LOXAPINE10 MG PO (06:20)
[2016-06-18] MEDS ORDERED: HYDROCODONE-APA1 TAB PO (06:21)
[2016-06-18] MEDS ORDERED: SYNTHROID300 MCG PO (06:22)
[2016-06-18] MEDS ORDERED: MINIPRESS2 MG PO (06:23)
[2016-06-18] MEDS ORDERED: GLIMEPIRIDE2 MG PO (06:24)
[2016-06-18] MEDS ORDERED: PROAIR HFA8.5 GM INH (06:24)
[2016-06-18] MEDS ORDERED: ZOLOFT100 MG PO (06:24)
[2016-06-18] MEDS ORDERED: ESTRACE1 MG PO (06:25)
[2016-06-18] MEDS ORDERED: BUPROPION XL150 MG PO (06:25)
[2016-06-18] MEDS ORDERED: TRULICITY1.5 MG/0.5 SC (06:26)
[2016-06-18] MEDS ORDERED: TOFRANIL25 MG PO (06:28)
[2016-06-18 06:39] LABS: HEMOGLOBIN A1C 7.6 % (4.8-6.0)
[2016-06-19] VITALS (18 sets, daily range): BP systolic 112–181; BP diastolic 65–114
[2016-06-19 04:28] LABS: BASOPHILS 0.1 % (0-2); EOSINOPHILS 4.6 % (0-7); HEMATOCRIT 37.5 % (36.0-48.0); HEMOGLOBIN 12.6 g/dL (12-16); IMMATURE GRANULOCYTES 0.3 % (0-5); LYMPHOCYTES 54.2 % (15-50); MCH 29.5 pg (26.0-34.0); MCHC 33.6 g/dL (31.0-37.0); MCV 87.8 fL (80.0-100.0); MONOCYTES 4.5 % (2-11); NEUTROPHILS 36.3 % (40-80); PLATELET COUNT 240 10x3/uL (130-400); RBC 4.27 10x6/uL (4.00-5.40); RDW 12.8 % (11.5-14.5)
[2016-06-19 04:32] LABS: WBC 6.7 10x3/uL (4.8-10.8)
[2016-06-19 04:38] LABS: ALBUMIN 3.1 g/dL (3.4-5.0); ALKALINE PHOSPHATASE 41 U/L (46-116); ALT (SGPT) 23 U/L (10-68); BILIRUBIN - TOTAL 0.15 mg/dL (0.2-1.3); CALC OSMOLALITY 279 mosm/kg (275-300); CALCIUM 8.2 mg/dL (8.5-10.1); CARBON DIOXIDE 25.3 mmol/L (21.0-32.0); CHLORIDE - SERUM 107 mmol/L (98-107); CREATININE - SERUM 0.8 mg/dL (0.6-1.3); GLUCOSE 120 mg/dL (74-106); MAGNESIUM - SERUM 1.6 mg/dL (1.8-2.4); PHOSPHOROUS 3.8 mg/dL (2.5-4.9); POTASSIUM - SERUM 4.3 mmol/L (3.5-5.1); PROTEIN - SERUM 6.5 g/dL (6.4-8.2); SODIUM 141 mmol/L (136-145); UREA NITROGEN 7 mg/dL (7-18); eGFR NON AFRICAN AMERICAN 85 mL/min (90-120)
--- NOTE | 2016-06-19 07:46 | CN ---
PATIENT NAME:JANN RUBALCAVA MEDICAL RECORD: [id number] : 79 LOCATION:[id number] ADMIT DATE: 06/18/16 ACCOUNT: [id number] CONSULTING PHYSICIAN: SHANNON CAMACHO III, MD REFERRING PHYSICIAN: LE SINGH DO DATE OF CONSULTATION: 06/18/2016 FINDINGS: This is a 40-year-old white female who is admitted for the second time in less than a month to the intensive care unit for a suicide attempt by overdose. She was seen May [address] March who at that time noted the presence of both recurrent depression and polysubstance abuse. On that admission, the patient had tested positive for both cocaine and marijuana. On that occasion, the patient states that she was distraught because of her mother's terminal illness. The patient was subsequently admitted to [facility] for psychiatric reasons. She states that she was placed on Loxitane, and the antipsychotic medication. She stated that she was hearing voices because she was so depressed. It is not known whether or not the patient has ever been treated for psychotic disorder in the past. She gives no evidence of acute psychosis at the present time. The patient states that she had teeth pulled last week and that she needs pain medication. In view of the current history of polysubstance abuse, this should be approached with caution. The patient also states that she had been prescribed clindamycin subsequent to her tooth extraction. The patient states that yesterday, she became upset about her friend who had . She stated that she began walking aimlessly and took an overdose of Klonopin. She states that she is agreeable to readmission for psychiatric reasons. On exam, overweight white female, in no acute distress. Mood is somewhat dysphoric. Affect is rather shallow and childlike. Speech is fairly fluent. Content of thought is strongly focused on somatic concerns. The patient does appear to be somewhat drug seeking, but also positive for suicidal ideation. Sensorium is relatively clear. DIAGNOSTIC IMPRESSION: AXIS I: Major depressive disorder -- recurrent, polysubstance abuse. RECOMMENDATIONS: 1. As soon as the patient is medically stable, I would recommend transfer for inpatient psychiatric treatment. TRANSINT:[id number] Voice Confirmation ID: [id number] DOCUMENT ID: [id number] CONSULT REPORT [id number] JANN RUBALCAVA SHANNON CAMACHO III, MD at 0746 CC: [id number] DICTATION DATE: 06/18/16 1233 MENTAL HEALTH ASSOCIATE: 06/18/16 1548 ADM IN [id number] [place] [address]
[2016-06-20] VITALS (13 sets, daily range): BP systolic 124–164; BP diastolic 71–102
[2016-06-20 04:43] LABS: BASOPHILS 0.2 % (0-2); EOSINOPHILS 4.4 % (0-7); HEMATOCRIT 34.4 % (36.0-48.0); HEMOGLOBIN 11.8 g/dL (12-16); IMMATURE GRANULOCYTES 0.2 % (0-5); LYMPHOCYTES 42.7 % (15-50); MCH 29.6 pg (26.0-34.0); MCHC 34.3 g/dL (31.0-37.0); MCV 86.2 fL (80.0-100.0); MEAN PLATELET VOLUME 8.8 fL (7.4-10.4); MONOCYTES 5.8 % (2-11); NEUTROPHILS 46.7 % (40-80); PLATELET COUNT 232 10x3/uL (130-400); RBC 3.99 10x6/uL (4.00-5.40); RDW 12.6 % (11.5-14.5); WBC 5.7 10x3/uL (4.8-10.8)
[2016-06-20 04:49] LABS: CALC OSMOLALITY 278 mosm/kg (275-300); CALCIUM 8.2 mg/dL (8.5-10.1); CARBON DIOXIDE 28.6 mmol/L (21.0-32.0); CHLORIDE - SERUM 106 mmol/L (98-107); CREATININE - SERUM 0.8 mg/dL (0.6-1.3); GLUCOSE 129 mg/dL (74-106); POTASSIUM - SERUM 3.7 mmol/L (3.5-5.1); SODIUM 140 mmol/L (136-145); UREA NITROGEN 6 mg/dL (7-18); eGFR NON AFRICAN AMERICAN 85 mL/min (90-120)
[2016-06-21 03:00] VITALS: BP 128/73
[2016-06-21 05:52] LABS: BASOPHILS 0.2 % (0-2); EOSINOPHILS 4.6 % (0-7); HEMATOCRIT 36.3 % (36.0-48.0); HEMOGLOBIN 12.5 g/dL (12-16); IMMATURE GRANULOCYTES 0.4 % (0-5); LYMPHOCYTES 44.6 % (15-50); MCH 29.8 pg (26.0-34.0); MCHC 34.4 g/dL (31.0-37.0); MCV 86.4 fL (80.0-100.0); MEAN PLATELET VOLUME 8.6 fL (7.4-10.4); NEUTROPHILS 43.2 % (40-80); PLATELET COUNT 234 10x3/uL (130-400); RDW 12.5 % (11.5-14.5); WBC 5.7 10x3/uL (4.8-10.8)
[2016-06-21 06:06] LABS: ANION GAP 9.1 mmol/L (8-16); BILIRUBIN - TOTAL 0.27 mg/dL (0.2-1.3); CARBON DIOXIDE 29.9 mmol/L (21.0-32.0); CREATININE - SERUM 0.9 mg/dL (0.6-1.3); PHOSPHOROUS 4.4 mg/dL (2.5-4.9); PROTEIN - SERUM 6.8 g/dL (6.4-8.2)
[2016-06-21 08:00] VITALS: BP 169/109
[2016-06-21 12:00] VITALS: BP 163/129
[2016-06-21 16:00] VITALS: BP 160/90
[2016-06-21 19:00] VITALS: BP 152/116
[2016-06-22 08:00] VITALS: BP 164/112
[2016-06-22 19:30] VITALS: BP 151/107
[2016-06-23 05:00] VITALS: BP 157/116
[2016-06-23 05:18] LABS: BASOPHILS 0.1 % (0-2); HEMATOCRIT 39.4 % (36.0-48.0); HEMOGLOBIN 13.4 g/dL (12-16); IMMATURE GRANULOCYTES 0.1 % (0-5); LYMPHOCYTES 49.1 % (15-50); MCH 29.5 pg (26.0-34.0); MCV 86.6 fL (80.0-100.0); NEUTROPHILS 41.7 % (40-80); PLATELET COUNT 257 10x3/uL (130-400); RBC 4.55 10x6/uL (4.00-5.40); RDW 12.4 % (11.5-14.5); WBC 7.1 10x3/uL (4.8-10.8)
[2016-06-23 07:00] VITALS: BP 152/78
[2016-06-23 07:00] LABS: ANION GAP 13.3 mmol/L (8-16); CALCIUM 9.2 mg/dL (8.5-10.1); CARBON DIOXIDE 26.1 mmol/L (21.0-32.0); CREATININE - SERUM 1.1 mg/dL (0.6-1.3); POTASSIUM - SERUM 4.4 mmol/L (3.5-5.1)
[2016-06-23 19:00] VITALS: BP 161/108
[2016-06-24 07:00] VITALS: BP 152/68
[2016-06-24 19:40] VITALS: BP 149/112
[2016-06-25 07:30] VITALS: BP 124/85
[2016-06-26] MEDS ORDERED: GLUCOPHAGE1000 MG PO (06:45)
== END 2016-06-25 19:46 | disposition short-term general hospital (02) | DRG 918 ==
LOC: D.ER 03:44 → D.ICU 05:12 → OBSVTIME 05:12 → D.ICU 06-19 13:37
PROVIDERS: Family Medicine; ADMIT Family Medicine
PROC: 0T9B70Z Drainage of Bladder with Drainage Device, Via Natural or Artificial Opening (ICD-10-PCS; principal; 2016-06-18)
DX: T42.4X2A Poisoning by benzodiazepines, intentional self-harm, initial encounter (principal); F33.9 Major depressive disorder, recurrent, unspecified; Z68.41 Body mass index [BMI] 40.0-44.9, adult; E03.9 Hypothyroidism, unspecified; E11.9 Type 2 diabetes mellitus without complications; I10 Essential (primary) hypertension; Z91.14 Patient's other noncompliance with medication regimen; E66.01 Morbid (severe) obesity due to excess calories; T18.2XXA Foreign body in stomach, initial encounter; X58.XXXA Exposure to other specified factors, initial encounter; F43.10 Post-traumatic stress disorder, unspecified; G47.30 Sleep apnea, unspecified; Z72.0 Tobacco use; Z78.1 Physical restraint status

== ENCOUNTER 2016-08-05 02:12 | Inpatient (IN) | payer MEDICARE ==
[~2016-08-05] VITALS: Ht 165.1 cm; Wt 112.0 kg
--- NOTE | ~2016-08-05 | CN ---
PATIENT NAME:JANN RUBALCAVA MEDICAL RECORD: [id number] : 79 LOCATION:D.MS Wolfe ADMIT DATE: 08/05/16 ACCOUNT: [id number] CONSULTING PHYSICIAN: VASILE SHERWOOD MD REFERRING PHYSICIAN: MARA DE LA ROSA MD DATE OF CONSULTATION: 08/06/2016 Gastrointestinal Consultation REFERRING PHYSICIAN: Mara De La Rosa MD. HISTORY OF PRESENT ILLNESS: This patient is a 40-year-old white female with a long psychiatric history, diabetes, hypertension, cerebral palsy and seizures, who basically was admitted with vague abdominal pain and ileus on admitting x-ray. I have seen this lady several times in the past, always for swallowing metal objects, namely metal spoons. One of these we had to remove endoscopically from her stomach and 1 was able to pass all the way through. She has had an upper endoscopy in the past as noted above that was normal other than a foreign body. She basically describes vague abdominal pain and some back pain. She has had a tendency of drug seeking in the past. On admission, she had a CT and KUB of the abdomen. Her CT revealed surgical drainage consistent with a cholecystectomy, hysterectomy, fatty liver and a mild small bowel ileus. Her admission KUB revealed similar findings. Today's KUB after the NG has been placed reveals small gas was filling up the colon, but no acute findings. PAST MEDICAL HISTORY: As above. She also has problems with hypothyroidism, asthma, depression, anxiety and posttraumatic stress disorder. PAST SURGICAL HISTORY: Remarkable for cholecystectomy, hysterectomy, lithotripsy times 4, laparoscopy times for ovarian cyst and exploratory laparoscopy. ALLERGIES: LAMICTAL, HALDOL, TORADOL, CIPRO, DOXYCYCLINE AND DEMEROL. HOME MEDICATIONS: Include metformin, levothyroxine, Amaryl, albuterol, Zoloft, Tofranil, loxapine, prazosin, Wellbutrin, dulaglutide, Estrace, Protonix 40 mg daily and Remeron. FAMILY HISTORY: Negative for GI disease. SOCIAL HISTORY: The patient is a former smoker. She denies alcohol use. REVIEW OF SYSTEMS: Noncontributory other than HPI. PHYSICAL EXAMINATION: GENERAL: Reveals a very malodorous and unkempt middle-aged white female, in no acute distress. She has an NG tube in place with bilious material present. HEENT: Unremarkable. NECK: Supple. CHEST: Clear anteriorly. CONSULT REPORT [id number] JANN RUBALCAVA HEART: Regular rate and rhythm. ABDOMEN: Soft and basically nontender. EXTREMITIES: No edema. LABORATORY DATA: Reveals a white count of 9000, hematocrit 41, platelet count 136,000 and MCV of 87. Electrolytes normal. BUN and creatinine are normal. Glucose 166, TSH 0.03, T4 is 1.49. Amylase and lipase are normal. Liver enzymes are normal. X-RAY DATA: As above. IMPRESSION: 1. Vague abdominal pain, ileus on CT of unclear etiology, but without obstruction. This could be due to some of her meds; scar tissue from previous surgeries, obstipation, etc. 2. Psychiatric history and that she has had 2 episodes of swallowing metal object, spoons, one of which had to be retrieved from her stomach and another [address] RECOMMENDATION: 1. Agree with bowel rest, NG tube for suction, serial KUBs. 2. No plans for endoscopy. 3. Consider small bowel follow through in another day or two. 4. Encourage the patient to bathe. She is very malodorous. I could barely stay on the room. TRANSINT:[id number] Voice Confirmation ID: [id number] DOCUMENT ID: [id number] VASILE SHERWOOD MD CC: MARA DE LA ROSA MD [id number] DICTATION DATE: 08/06/16 1631 MEXICAN FOOD MAKER: 08/07/16 0018 DIS IN 08/06/16 [facility] [address] [place] [address]
[~2016-08-05 02:12] MED LIST changes: +BUPROPION XL150 MG PO; +GLUCOPHAGE1000 MG PO; +HYDROCODONE-APA1 TAB PO; +LOXAPINE10 MG PO; +MINIPRESS2 MG PO; +PROAIR HFA8.5 GM INH; +TOFRANIL25 MG PO; +TRULICITY1.5 MG/0.5 SC; +ZOLOFT100 MG PO
[2016-08-05 02:50] LABS: APPEARANCE HAZY (CLEAR); COLOR YELLOW (YELLOW); SPECIFIC GRAVITY 1.025 (1.005-1.020)
[2016-08-05 02:51] LABS: BACTERIA NONE SEEN /hpf (NONE SEEN); BILIRUBIN NEGATIVE (NEGATIVE); EPITHELIAL CELLS 0-5 /hpf (0-5); GLUCOSE NEGATIVE (NEGATIVE); GRANULAR CAST 0-5 /lpf (NONE SEEN); HYALINE CAST 0-5 /lpf (NONE SEEN); KETONE NEGATIVE (NEGATIVE); LEUKOCYTE ESTERASE TRACE (NEGATIVE); NITRITE NEGATIVE (NEGATIVE); PROTEIN TRACE mg/dL (NEGATIVE); RED CELLS - URINE 0-5 /hpf (0-5); UROBILINOGEN NORMAL (NORMAL); WHITE CELLS - URINE 0-5 /hpf (0-5)
[2016-08-05 02:53] LABS: BASOPHILS 0.2 % (0-2); EOSINOPHILS 0 % (0-7); HEMATOCRIT 41.8 % (36.0-48.0); HEMOGLOBIN 14.5 g/dL (12-16); IMMATURE GRANULOCYTES 0.3 % (0-5); LYMPHOCYTES 31.9 % (15-50); MCH 30.1 pg (26.0-34.0); MCHC 34.7 g/dL (31.0-37.0); MCV 86.9 fL (80.0-100.0); MEAN PLATELET VOLUME 9.2 fL (7.4-10.4); MONOCYTES 5.8 % (2-11); NEUTROPHILS 61.8 % (40-80); PLATELET COUNT 245 10x3/uL (130-400); RBC 4.81 10x6/uL (4.00-5.40); RDW 12.3 % (11.5-14.5)
[2016-08-05 03:06] LABS: ALBUMIN 3.7 g/dL (3.4-5.0); ANION GAP 16.1 mmol/L (8-16); BILIRUBIN - TOTAL 0.28 mg/dL (0.2-1.3); CALCIUM 9.9 mg/dL (8.5-10.1); CARBON DIOXIDE 23.3 mmol/L (21.0-32.0); POTASSIUM - SERUM 3.4 mmol/L (3.5-5.1); PROTEIN - SERUM 7.7 g/dL (6.4-8.2)
[2016-08-05 05:48] LABS: AMYLASE - SERUM 44 U/L (25-115); LIPASE 265 U/L (73-393)
--- NOTE | 2016-08-05 06:54 | NUR ---
PATIENT RECEIVED TO FLOOR FROM ER VIA WHEELCHAIR. TRANSFERRED SELF TO BED. ORIENTED TO ROOM. NGT TO LIWS. SIDE RAILS UP X1. BED IN LOW POSITION. CALL LIGHT IN REACH.
[2016-08-05] MEDS ORDERED: BUPROPION XL150 MG PO (07:04)
[2016-08-05] MEDS ORDERED: ESTRACE1 MG PO (07:09)
[2016-08-05] MEDS ORDERED: TRULICITY1.5 MG/0.5 SC (07:09)
[2016-08-05] MEDS ORDERED: PROTONIX40 MG PO (07:09)
[2016-08-05] MEDS ORDERED: REMERON30 MG PO (07:10)
--- NOTE | 2016-08-05 07:40 | NUR ---
IVF INITIATED PER ORDERS. C/O PAIN 10/21 AND NAUSEA. DILAUDID 1MG SLOW IVP PER PRN ORDERS. COMPAZINE PER PRN ORDER. DENIES FURTHER NEEDS. SIDE RAILS UP X2. BED IN LOW POSITION. CALL LIGHT IN REACH.
[2016-08-05 08:00] VITALS: BMI 41.1
[2016-08-05 09:11] VITALS: BP 129/80
--- NOTE | 2016-08-05 09:57 | NUR ---
PATIENT IN RIGHT LATERAL POSITION RESTING WITH EYES CLOSED. RESPIRATIONS EVEN AND UNLABORED. SIDE RAILS UP X2. BED IN LOW POSITION. CALL LIGHT IN REACH.
--- NOTE | 2016-08-05 11:23 | NUR ---
PATIENT IN RIGHT LATERAL POSITION RESTING WITH EYES CLOSED. RESPIRATIONS EVEN AND UNLABORED. WAKES EASY. ACCU CHECK 166. NGT ADVANCED AFTER SLIPPING OUT SOME. PLACEMENT VERIFIED WITH AIR BOLUS THEN CONNECTED TO LIWS. TOLERATED WELL. SIDE RAILS UP X2. BED IN LOW POSITION. CALL LIGHT IN REACH.
[2016-08-05 12:20] VITALS: BP 130/83
--- NOTE | 2016-08-05 14:13 | NUR ---
PATIENT IN MID CAO POSITION RESTING WITH EYES CLOSED. RESPIRATIONS EVEN AND UNLABORED. NGT LIWS. SIDE RAILS UP X2. BED IN LOW POSITION. CALL LIGHT IN REACH.
[2016-08-05 16:23] VITALS: BP 142/89
--- NOTE | 2016-08-05 17:07 | HP ---
PATIENT: JANN RUBALCAVA MEDICAL RECORD: [id number] ACCOUNT: [id number] LOCATION:D.MS Wright4 : 77 ADMISSION DATE: 08/05/16 HISTORY AND PHYSICAL EXAMINATION HISTORY OF PRESENT ILLNESS: A 40-year-old white female, presented to the ER upon day of admission with complaint of abdominal pain. The patient states that she thinks she had a kidney stone that is flaring up her stomach. She was having multiple episodes of nausea and vomiting and was unable to keep anything down, has been going on for 3 days. She is a diabetic and states her sugars have been mildly controlled. She was having a KUB that showed evidence of air fluid levels of an ileus, had NG tube that was placed and the patient is presently resting comfortably. She is requiring IV Dilaudid for pain ____ discussed with the patient stopping pain medicine and continue to follow. PAST MEDICAL HISTORY: Significant for cerebral palsy, weakness, numbness, seizures, suicidal ideation, thyroid disorder, type 2 diabetes mellitus, recurrent kidney stones, ____, apnea, cervical cancer, GERD, hip fracture, urinary incontinence, depression and insomnia. PAST SURGICAL HISTORY: Includes cholecystectomy, port placement and port removal of her chest wall, hysterectomy, 4 lithotripsies. She has had ovarian cyst removed. She has had 4 laparotomies on her abdomen. She also has had a broken hip replaced. ALLERGIES: THE PATIENT IS ALLERGIC TO LAMICTAL, HALDOL, TORADOL, AMOXIL, CIPRO, DOXYCYCLINE, DEMEROL. MEDICATIONS: Includes metformin, Levothroid, Amaryl, Zoloft, imipramine, Loxitane, Minipress, Wellbutrin, Trulicity, estradiol, Protonix, Remeron. SOCIAL HISTORY: The patient does not smoke, does not drink alcohol. She is legally blind. REVIEW OF SYSTEMS: As above. PHYSICAL EXAMINATION: VITAL SIGNS: As below. GENERAL: She is a well-developed and well-nourished 40-year-old obese white female with an NG tube and dysconjugate gaze, in no acute distress. HEENT: Has some dental caries as noted. NECK: No cervical or pharyngeal adenopathy noted. No nuchal rigidity. LUNGS: Have coarse breath sounds heard in the bases, otherwise clear. HEART: Regular rate and rhythm with a I/ systolic ejection murmur. ABDOMEN: Distended, soft, hypoactive bowel sounds. No masses. No rebound tenderness. Has some guarding that is present. EXTREMITIES: She has trace edema noted and moves all 4 extremities. IMAGING: Review of her x-ray showed air fluid levels that are present in the small bowel. She has evidence of previous left hip arthroplasty. LABORATORY DATA: Does show elevated glucose, will be place on sliding scale. ASSESSMENT: 1. Ileus. HISTORY AND PHYSICAL [id number] KHADAR,JANN Coppola 2. Possible small-bowel obstruction. 3. Abdominal pain. 4. Cerebral palsy. 5. Diabetes mellitus. 6. History of cervical cancer. 7. Multiple abdominal surgeries. PLAN: The patient will be admitted to the hospital. NG tube will be placed, IV fluids, sliding scale insulin. GI consultation. Check laboratory appropriately and limit pain medicine. TRANSINT:[id number] Voice Confirmation ID: [id number] DOCUMENT ID: [id number] MARA MESSER MD at 1707 CC: [id number] DICTATION DATE: 08/05/16 1233 CLINICAL SUPPORT ASSOCIATE: 08/05/16 1313 ADM IN [facility] [address] [id number]
--- NOTE | 2016-08-05 18:20 | NUR ---
PATIENT IN MID CAO POSITION RESTING WITH EYES CLOSED. RESPIRATIONS EVEN AND UNLABORED. SIDE RAILS UP X2. BED IN LOW POSITION. CALL LIGHT IN REACH.
[2016-08-05 19:00] VITALS: BP 163/107
--- NOTE | 2016-08-05 19:00 | NUR ---
PATIENT IN BED CRYING. STATES HER PAIN IS A 10/10 AND THAT SHE IS NAUSEATED. RR EVEN AND UNLABORED. NG TUBE TO RIGHT NARE TO LIS. IV TO RIGHT FA PATENT WITH NO REDNESS OR SWELLING. SRX2. BED LOW. CALL LIGHT WITHIN REACH.
--- NOTE | 2016-08-05 19:31 | NUR ---
PATIENT STATED THAT SHE WAS TO NAUSEATED TO TAKE HER TX. EDUCATED THAT IT WOULD BE 0700 FOR HER NEXT INHALER
--- NOTE | 2016-08-05 20:15 | NUR ---
SPOKE WITH GAME ARTIST ABOUT PAIN MEDICATION. SHE STATED THAT BECAUSE DR. MESSER D/C'D THE PAIN MEDICATION THE ER DID NOT WANT TO PRESRIBE HER ANYTHING. EXPLAINED THIS TO THE PATIENT. PHENERGAN GIVEN FOR NAUSEA.
--- NOTE | 2016-08-05 22:00 | NUR ---
ATIVAN GIVEN PER ORDER.
--- NOTE | 2016-08-06 02:20 | NUR ---
PATIENT'S BP 163/107. CATAPRES GIVEN PO PER ORDER. SUCTION OFF.
[2016-08-06 04:00] VITALS: BP 152/83
--- NOTE | 2016-08-06 04:30 | NUR ---
TURNED SUCTION BACK ON. ATIVAN GIVEN.
[2016-08-06 07:11] LABS: CALCIUM 8.8 mg/dL (8.5-10.1); CARBON DIOXIDE 23.9 mmol/L (21.0-32.0); CHLORIDE - SERUM 101 mmol/L (98-107); LIPASE 141 U/L (73-393); MAGNESIUM - SERUM 1.5 mg/dL (1.8-2.4); PRO BNP 386 pg/mL (0-125); SODIUM 135 mmol/L (136-145); T4 THYROXIN - FREE 1.49 ng/dL (0.76-1.46); THYROID STIMULATING HORMONE 0.03 uIU/mL (0.36-3.74)
[2016-08-06 07:12] LABS: AMYLASE - SERUM 30 U/L (25-115); CALC OSMOLALITY 271 mosm/kg (275-300); CREATININE - SERUM 0.7 mg/dL (0.6-1.3); GLUCOSE 166 mg/dL (74-106); UREA NITROGEN 7 mg/dL (7-18); eGFR NON AFRICAN AMERICAN > 90 mL/min (90-120)
[2016-08-06 07:16] LABS: BASOPHILS 0.1 % (0-2); EOSINOPHILS 0.1 % (0-7); HEMATOCRIT 41.5 % (36.0-48.0); HEMOGLOBIN 14.1 g/dL (12-16); IMMATURE GRANULOCYTES 0.2 % (0-5); LYMPHOCYTES 30.6 % (15-50); MCH 29.7 pg (26.0-34.0); MCV 87.4 fL (80.0-100.0); MEAN PLATELET VOLUME 9.9 fL (7.4-10.4); MONOCYTES 5.6 % (2-11); NEUTROPHILS 63.4 % (40-80); RBC 4.75 10x6/uL (4.00-5.40); RDW 12.2 % (11.5-14.5); WBC 9.5 10x3/uL (4.8-10.8)
[2016-08-06 07:18] LABS: PLATELET COUNT 136 10x3/uL (130-400)
[2016-08-06 08:31] VITALS: BP 162/102
[2016-08-06 12:32] VITALS: BP 157/93
[2016-08-06 12:33] VITALS: Ht 165.1 cm; Wt 112.0 kg
[2016-08-06 16:09] VITALS: BP 166/95
--- NOTE | 2016-08-06 16:34 | NUR ---
Is the patient Alert and Oriented? Yes 0 * How many steps to enter\exit or inside your home? Three 0 * PCP NO PCP 0 * Pharmacy [facility] [address] near [place] 0 * Preadmission Environment Home with Family 0 * ADLs Independent 0 * Equipment Glucometer Walker 0 * Other Equipment No nebulizer but had MDI's 0 * List name and contact numbers for known caregivers / representatives who currently or will assist patient after discharge: Winsome Palma- [facility]- [phone] 0 * Community resources currently utilized None 0 * Please name any agencies selected above. N/A 0 * Additional services required to return to the preadmission environment? No 0 * Can the patient safely return to the preadmission environment? Yes 0 * Has this patient been hospitalized within the prior 30 days at any hospital? No 0
--- NOTE | 2016-08-06 16:43 | NUR ---
CM met with patient at the bedside. She was having abdominal pain but stated she would speak with the CM. The nursing instructor advised her primary nurse as she took vital signs. Patient lives with her parents in their home. The plan is to return at discharge. Her father will provide transportation to home. There are 3 steps to enter the house. Patient has a glucometer, walker and uses MDI's. She would like a shower chair. CM advised we could order however Medicare will not pay. Advised she could check [employer] or [employer] as they have new and nearly new showers chairs at times for reasonable cost. PCP- none Fare Collector- DR Garcia Denies any other specialist or counselors. Denies any community or home health services. Patient denies any needs at this time.
--- NOTE | 2016-08-06 16:43 | NUR ---
AFTER DR. SHERWOOD HAD BEEN IN TO SEE PT SHE WAS IMMEDIATELY ON HER CALL LIGHT. UPON ENTRANCE OF HER ROOM PT STATED SHE NEEDED SOMETHING FOR PAIN AND NAUSEA. I EXPLAINED TO PT THAT WHAT WAS ORDERED EARLIER WAS A ONE TIME DOSE, BUT THAT I WOULD ASK DR. SHERWOOD. DR. SHERWOOD STATED HE WOULD NOT GIVE HER ANY PAIN MEDICATION. TRIED TO EXPLAIN THIS TO THE PT SHE STATED, "WELL DR. SHERWOOD HATES ME. HE'S CUSSED ME OUT TO MY FACE BEFORE AND SCREAMED AT ME. I DO NOT WANT TO BE HERE. I CAN SIT AT HOME AND FEEL LIKE THIS." EXPLAINED TO PT THAT THE DOCTORS ONLY WANT TO HELP, BUT THIS DID NOT CONVINCE HER. THEN EXPLAINED THAT SHE COULD LEAVE AGAINST MEDICAL ADVICE. SHE STATED SHE WANTED TO DO THIS. PAPERS PRINTED, DR. SHERWOOD NOTIFIED, ELVIRA TANNER, NOTIFIED AND STATED, "I HIGHLY RECOMMEND SHE STAY, AND IT'S A BAD IDEA IF SHE LEFT." TOLD ELVIRA TANNER, WHAT PT STATED AND SHE SAID, "OKAY THATS FINE. I WILL LET DR. ZHAO KNOW." NGT TO L NARE DC'D. IV TO R FOREARM DC'D WITH CATHETER INTACT. PT AWAITING FOR TRANSPORTATION TO ARRIVE.
--- NOTE | 2016-08-06 19:35 | NUR ---
PT LEFT AMA BEFORE ATIVAN AND MORPHINE COULD BE WASTED IN PYXIS. THROWN IN SHARPS AND WITNESSED BY MARIBELL BLANCHARD.
== END 2016-08-06 17:02 | disposition left against medical advice (07) | DRG 389 ==
LOC: D.ER 02:12 → D.MS 06:22
PROVIDERS: Emergency Medicine; ADMIT Family Medicine
PROC: 0D9670Z Drainage of Stomach with Drainage Device, Via Natural or Artificial Opening (ICD-10-PCS; principal; 2016-08-05)
DX: K56.7 Ileus, unspecified (principal); Z68.41 Body mass index [BMI] 40.0-44.9, adult; G80.9 Cerebral palsy, unspecified; E11.65 Type 2 diabetes mellitus with hyperglycemia; Z79.84 Long term (current) use of oral hypoglycemic drugs; E66.9 Obesity, unspecified; I10 Essential (primary) hypertension; E03.9 Hypothyroidism, unspecified; J45.909 Unspecified asthma, uncomplicated; F43.10 Post-traumatic stress disorder, unspecified; X58.XXXA Exposure to other specified factors, initial encounter; K21.9 Gastro-esophageal reflux disease without esophagitis; G47.33 Obstructive sleep apnea (adult) (pediatric); F41.8 Other specified anxiety disorders; H54.8 Legal blindness, as defined in USA

== ENCOUNTER 2016-08-07 04:26 | Emergency (ER) | payer MEDICARE ==
[2016-08-06 12:33] VITALS: BMI 41.1
[~2016-08-07 04:26] MED LIST changes: +PROTONIX40 MG PO; +REMERON30 MG PO
[2016-08-07 05:21] LABS: BASOPHILS 0.1 % (0-2); EOSINOPHILS 0 % (0-7); HEMATOCRIT 42.8 % (36.0-48.0); HEMOGLOBIN 14.6 g/dL (12-16); IMMATURE GRANULOCYTES 0.4 % (0-5); MCH 29.9 pg (26.0-34.0); MCHC 34.1 g/dL (31.0-37.0); MCV 87.7 fL (80.0-100.0); MEAN PLATELET VOLUME 9.3 fL (7.4-10.4); MONOCYTES 8.3 % (2-11); NEUTROPHILS 62.2 % (40-80); PLATELET COUNT 270 10x3/uL (130-400); RBC 4.88 10x6/uL (4.00-5.40); RDW 12.4 % (11.5-14.5); WBC 10.3 10x3/uL (4.8-10.8)
[2016-08-07 05:27] LABS: ANION GAP 16.5 mmol/L (8-16); CALCIUM 9.6 mg/dL (8.5-10.1); POTASSIUM - SERUM 3.5 mmol/L (3.5-5.1)
== END 2016-08-07 06:05 | disposition home or self-care (01) ==
LOC: D.ER 04:26
PROVIDERS: Emergency Medicine
DX: R10.9 Unspecified abdominal pain (principal); R14.3 Flatulence; F17.200 Nicotine dependence, unspecified, uncomplicated

== ENCOUNTER 2016-08-30 01:45 | Emergency (ER) | payer MEDICARE ==
[2016-08-06 12:33] VITALS: BMI 41.1
[2016-08-30 02:30] LABS: APPEARANCE CLOUDY (CLEAR); COLOR YELLOW (YELLOW); LEUKOCYTE ESTERASE 2+ (NEGATIVE); NITRITE NEGATIVE (NEGATIVE); PROTEIN TRACE mg/dL (NEGATIVE)
[2016-08-30 02:31] LABS: BACTERIA MODERATE /hpf (NONE SEEN); BILIRUBIN NEGATIVE (NEGATIVE); EPITHELIAL CELLS 0-5 /hpf (0-5); GLUCOSE 1000 mg/dL (NEGATIVE); KETONE NEGATIVE (NEGATIVE); MUCUS <1+ /lpf (NONE SEEN); RED CELLS - URINE 0-5 /hpf (0-5); UROBILINOGEN NORMAL (NORMAL)
[2016-08-30 02:38] LABS: BASOPHILS 0.1 % (0-2); EOSINOPHILS 0 % (0-7); HEMATOCRIT 41.1 % (36.0-48.0); HEMOGLOBIN 14.5 g/dL (12-16); IMMATURE GRANULOCYTES 0.2 % (0-5); LYMPHOCYTES 46.7 % (15-50); MCH 30.3 pg (26.0-34.0); MCHC 35.3 g/dL (31.0-37.0); MEAN PLATELET VOLUME 9.4 fL (7.4-10.4); MONOCYTES 6.1 % (2-11); NEUTROPHILS 46.9 % (40-80); PLATELET COUNT 273 10x3/uL (130-400); RBC 4.78 10x6/uL (4.00-5.40); RDW 12.2 % (11.5-14.5); WBC 8.5 10x3/uL (4.8-10.8)
[2016-08-30 02:53] LABS: ALBUMIN 3.4 g/dL (3.4-5.0); ANION GAP 14.9 mmol/L (8-16); BILIRUBIN - TOTAL 0.24 mg/dL (0.2-1.3); CALCIUM 9.1 mg/dL (8.5-10.1); CARBON DIOXIDE 26.5 mmol/L (21.0-32.0); CREATININE - SERUM 0.9 mg/dL (0.6-1.3); POTASSIUM - SERUM 3.4 mmol/L (3.5-5.1); PROTEIN - SERUM 7.7 g/dL (6.4-8.2)
== END 2016-08-30 04:15 | disposition home or self-care (01) ==
LOC: D.ER 01:45
PROVIDERS: Family Medicine
DX: N39.0 Urinary tract infection, site not specified (principal); F17.200 Nicotine dependence, unspecified, uncomplicated

== ENCOUNTER 2016-08-31 20:10 | Emergency (ER) | payer MEDICARE ==
[2016-08-06 12:33] VITALS: BMI 41.1
[2016-08-31 20:33] LABS: HCG URINE NEGATIVE (NEGATIVE)
[2016-08-31 20:36] LABS: APPEARANCE HAZY (CLEAR); BILIRUBIN NEGATIVE (NEGATIVE); COLOR YELLOW (YELLOW); GLUCOSE 1000 mg/dL (NEGATIVE); KETONE NEGATIVE (NEGATIVE); LEUKOCYTE ESTERASE 2+ (NEGATIVE); NITRITE NEGATIVE (NEGATIVE); PROTEIN NEGATIVE (NEGATIVE); SPECIFIC GRAVITY 1.015 (1.005-1.020); UROBILINOGEN NORMAL (NORMAL)
[2016-08-31 20:38] LABS: BACTERIA MANY /hpf (NONE SEEN); UDS - AMPHET POSITIVE QUAL (NEGATIVE); UDS - BARB NEGATIVE QUAL (NEGATIVE); UDS - BENZO POSITIVE QUAL (NEGATIVE); UDS - COCAINE POSITIVE QUAL (NEGATIVE); UDS - METH NEGATIVE QUAL (NEGATIVE); UDS - OPIATE NEGATIVE QUAL (NEGATIVE); UDS - PCP NEGATIVE QUAL (NEGATIVE); UDS - THC POSITIVE QUAL (NEGATIVE)
[2016-08-31 20:39] LABS: RED CELLS - URINE 0-5 /hpf (0-5)
[2016-08-31 20:55] LABS: BASOPHILS 0.1 % (0-2); EOSINOPHILS 0 % (0-7); HEMATOCRIT 40.1 % (36.0-48.0); HEMOGLOBIN 13.8 g/dL (12-16); IMMATURE GRANULOCYTES 0.4 % (0-5); LYMPHOCYTES 34.2 % (15-50); MCH 29.9 pg (26.0-34.0); MCHC 34.4 g/dL (31.0-37.0); MCV 86.8 fL (80.0-100.0); MEAN PLATELET VOLUME 9.2 fL (7.4-10.4); MONOCYTES 7.2 % (2-11); NEUTROPHILS 58.1 % (40-80); PLATELET COUNT 246 10x3/uL (130-400); RBC 4.62 10x6/uL (4.00-5.40); RDW 12.3 % (11.5-14.5); WBC 7.5 10x3/uL (4.8-10.8)
[2016-08-31 21:12] LABS: ALBUMIN 3.5 g/dL (3.4-5.0); ANION GAP 17.2 mmol/L (8-16); BILIRUBIN - TOTAL 0.43 mg/dL (0.2-1.3); CALCIUM 8.9 mg/dL (8.5-10.1); CARBON DIOXIDE 22.4 mmol/L (21.0-32.0); CREATININE - SERUM 1.1 mg/dL (0.6-1.3); POTASSIUM - SERUM 3.6 mmol/L (3.5-5.1); PROTEIN - SERUM 7.1 g/dL (6.4-8.2)
== END 2016-09-01 01:15 | disposition other institution (70) ==
LOC: D.ER 20:10
PROVIDERS: Emergency Medicine
DX: R45.851 Suicidal ideations (principal); F15.10 Other stimulant abuse, uncomplicated; F12.10 Cannabis abuse, uncomplicated; F17.200 Nicotine dependence, unspecified, uncomplicated

== ENCOUNTER 2016-09-20 05:56 | Emergency (ER) | payer MEDICARE ==
[2016-08-06 12:33] VITALS: BMI 41.1
[2016-09-20 06:35] LABS: BASOPHILS 0.1 % (0-2); EOSINOPHILS 0 % (0-7); HEMATOCRIT 42.1 % (36.0-48.0); HEMOGLOBIN 14.8 g/dL (12-16); IMMATURE GRANULOCYTES 0.4 % (0-5); LYMPHOCYTES 42.5 % (15-50); MCH 29.9 pg (26.0-34.0); MCHC 35.2 g/dL (31.0-37.0); MCV 85.1 fL (80.0-100.0); MONOCYTES 5.7 % (2-11); NEUTROPHILS 51.3 % (40-80); PLATELET COUNT 273 10x3/uL (130-400); RBC 4.95 10x6/uL (4.00-5.40); RDW 12.3 % (11.5-14.5); WBC 10.3 10x3/uL (4.8-10.8)
[2016-09-20 06:45] LABS: HCG SERUM NEGATIVE (NEGATIVE)
[2016-09-20 06:49] LABS: ALBUMIN 3.6 g/dL (3.4-5.0); ANION GAP 13.9 mmol/L (8-16); BILIRUBIN - TOTAL 0.27 mg/dL (0.2-1.3); CARBON DIOXIDE 24.7 mmol/L (21.0-32.0); CREATININE - SERUM 1.1 mg/dL (0.6-1.3); MAGNESIUM - SERUM 1.5 mg/dL (1.8-2.4); POTASSIUM - SERUM 3.6 mmol/L (3.5-5.1); PROTEIN - SERUM 7.7 g/dL (6.4-8.2)
[2016-09-20 07:07] LABS: UDS - AMPHET NEGATIVE QUAL (NEGATIVE); UDS - BARB NEGATIVE QUAL (NEGATIVE); UDS - BENZO POSITIVE QUAL (NEGATIVE); UDS - COCAINE POSITIVE QUAL (NEGATIVE); UDS - METH NEGATIVE QUAL (NEGATIVE); UDS - OPIATE NEGATIVE QUAL (NEGATIVE); UDS - PCP NEGATIVE QUAL (NEGATIVE); UDS - THC POSITIVE QUAL (NEGATIVE)
[2016-09-20 07:09] LABS: APPEARANCE CLOUDY (CLEAR); BILIRUBIN NEGATIVE (NEGATIVE); COLOR YELLOW (YELLOW); GLUCOSE NEGATIVE (NEGATIVE); HCG URINE NEGATIVE (NEGATIVE); KETONE NEGATIVE (NEGATIVE); LEUKOCYTE ESTERASE NEGATIVE (NEGATIVE); NITRITE NEGATIVE (NEGATIVE); PROTEIN NEGATIVE (NEGATIVE); SPECIFIC GRAVITY 1.025 (1.005-1.020); UROBILINOGEN NORMAL (NORMAL)
== END 2016-09-20 07:27 | disposition home or self-care (01) ==
LOC: D.ER 05:56
PROVIDERS: Family Medicine
DX: E87.8 Other disorders of electrolyte and fluid balance, not elsewhere classified (principal); E83.42 Hypomagnesemia; E11.9 Type 2 diabetes mellitus without complications; F14.10 Cocaine abuse, uncomplicated; F12.10 Cannabis abuse, uncomplicated; F17.200 Nicotine dependence, unspecified, uncomplicated; R53.1 Weakness; R56.9 Unspecified convulsions

== ENCOUNTER 2016-10-23 15:55 | Emergency (ER) | payer MEDICARE ==
[2016-08-06 12:33] VITALS: BMI 41.1
[~2016-10-23 15:55] MED LIST changes: +BUPROPION XL150 MG; +ZOLOFT100 MG; -ZOLOFT100 MG PO
[2016-10-23 16:40] LABS: BASOPHILS 0.1 % (0-2); EOSINOPHILS 0 % (0-7); HEMATOCRIT 39.8 % (36.0-48.0); HEMOGLOBIN 14.2 g/dL (12-16); IMMATURE GRANULOCYTES 0.3 % (0-5); LYMPHOCYTES 35.6 % (15-50); MCH 30.1 pg (26.0-34.0); MCHC 35.7 g/dL (31.0-37.0); MCV 84.5 fL (80.0-100.0); MEAN PLATELET VOLUME 9.1 fL (7.4-10.4); MONOCYTES 4.7 % (2-11); NEUTROPHILS 59.3 % (40-80); PLATELET COUNT 251 10x3/uL (130-400); RBC 4.71 10x6/uL (4.00-5.40); WBC 6.8 10x3/uL (4.8-10.8)
[2016-10-23 16:51] LABS: APPEARANCE CLEAR (CLEAR); BILIRUBIN NEGATIVE (NEGATIVE); COLOR YELLOW (YELLOW); GLUCOSE 500 mg/dL (NEGATIVE); KETONE NEGATIVE (NEGATIVE); LEUKOCYTE ESTERASE NEGATIVE (NEGATIVE); NITRITE NEGATIVE (NEGATIVE); PROTEIN NEGATIVE (NEGATIVE); SPECIFIC GRAVITY 1.025 (1.005-1.020); UROBILINOGEN NORMAL (NORMAL)
[2016-10-23 17:03] LABS: ALBUMIN 3.6 g/dL (3.4-5.0); ANION GAP 16.7 mmol/L (8-16); BILIRUBIN - TOTAL 0.22 mg/dL (0.2-1.3); CALCIUM 8.9 mg/dL (8.5-10.1); CARBON DIOXIDE 23.8 mmol/L (21.0-32.0); CREATININE - SERUM 0.9 mg/dL (0.6-1.3); POTASSIUM - SERUM 3.5 mmol/L (3.5-5.1); PROTEIN - SERUM 7.5 g/dL (6.4-8.2)
== END 2016-10-23 19:23 | disposition home or self-care (01) ==
LOC: D.ER 15:55
PROVIDERS: Emergency Medicine
DX: E11.65 Type 2 diabetes mellitus with hyperglycemia (principal); R10.9 Unspecified abdominal pain; F17.200 Nicotine dependence, unspecified, uncomplicated

== ENCOUNTER 2016-10-29 19:12 | Observation (INO) | payer MEDICARE ==
[~2016-10-29] VITALS: Ht 165.1 cm; Wt 111.4 kg
--- NOTE | ~2016-10-29 | DS ---
PATIENT:JANN RUBALCAVA :79 MEDICAL RECORD: [id number] DISCHARGE SUMMARY ADMISSION DATE: 10/29/16 DISCHARGE DATE: 10/30/16 DATE OF ADMISSION: 10/29/2016. DATE OF DISCHARGE: 10/30/2016. ADMITTING DIAGNOSIS: Overdose. DISCHARGE DIAGNOSIS: Overdose. CONSULTING PHYSICIAN: Psychiatry with Dr. Lopez. BRIEF HISTORY AND HOSPITAL COURSE: This is a 40-year-old white female who presents to the Emergency Room after taking hydroxyzine, handful of it, the previous night. In the ER, there was a report that she had also taken metformin and another medication, she denies this the following day and states that she had no suicidal attempt. She does have a history of suicidal attempts in the past and has been hospitalized previously and has previously been very forthcoming. She is seen in consultation by Dr. Lopez, who is familiar with the patient and feels that she does not pose a significant suicidal risk at this time. She is followed at [facility]. Medically she is stable. Her labs all looked okay without anything significant. After clearance from psychiatry, she is discharged to home. Her family came and has picked her up and will be following up with [facility] in the next few days. No change in her medications for now. TRANSINT:[id number] Voice Confirmation ID: [id number] DOCUMENT ID: [id number] MALLORY GUERRERO DO CC: [id number] DICTATION DATE: 10/31/16 1015 SUSTAINABILITY PURCHASING AGENT: 10/31/16 1057 DIS IN 10/30/16 [facility] [address] [place] [address]
[2016-10-29 19:53] LABS: BASOPHILS 0.1 % (0-2); EOSINOPHILS 0.1 % (0-7); HEMATOCRIT 42.1 % (36.0-48.0); IMMATURE GRANULOCYTES 0.2 % (0-5); LYMPHOCYTES 46.5 % (15-50); MCH 30.6 pg (26.0-34.0); MCHC 35.6 g/dL (31.0-37.0); MCV 85.9 fL (80.0-100.0); MEAN PLATELET VOLUME 9.3 fL (7.4-10.4); MONOCYTES 4.7 % (2-11); NEUTROPHILS 48.4 % (40-80); RDW 12.3 % (11.5-14.5); WBC 8.6 10x3/uL (4.8-10.8)
[2016-10-29 19:59] LABS: PLATELET COUNT 302 10x3/uL (130-400)
[2016-10-29 20:09] LABS: ALBUMIN 3.6 g/dL (3.4-5.0); ANION GAP 13.7 mmol/L (8-16); BILIRUBIN - TOTAL 0.2 mg/dL (0.2-1.3); CALCIUM 9.2 mg/dL (8.5-10.1); CARBON DIOXIDE 25.5 mmol/L (21.0-32.0); CREATININE - SERUM 1.1 mg/dL (0.6-1.3); POTASSIUM - SERUM 4.2 mmol/L (3.5-5.1); PROTEIN - SERUM 7.2 g/dL (6.4-8.2)
[2016-10-29 20:31] LABS: HCG SERUM NEGATIVE (NEGATIVE)
[2016-10-29 20:49] LABS: APPEARANCE CLEAR (CLEAR); BILIRUBIN NEGATIVE (NEGATIVE); COLOR YELLOW (YELLOW); GLUCOSE NEGATIVE (NEGATIVE); KETONE NEGATIVE (NEGATIVE); LEUKOCYTE ESTERASE NEGATIVE (NEGATIVE); NITRITE NEGATIVE (NEGATIVE); PROTEIN NEGATIVE (NEGATIVE); SPECIFIC GRAVITY 1.015 (1.005-1.020); UROBILINOGEN NORMAL (NORMAL)
[2016-10-29 20:57] LABS: UDS - AMPHET NEGATIVE QUAL (NEGATIVE); UDS - BARB NEGATIVE QUAL (NEGATIVE); UDS - BENZO POSITIVE QUAL (NEGATIVE); UDS - COCAINE NEGATIVE QUAL (NEGATIVE); UDS - METH NEGATIVE QUAL (NEGATIVE); UDS - OPIATE NEGATIVE QUAL (NEGATIVE); UDS - PCP NEGATIVE QUAL (NEGATIVE); UDS - THC POSITIVE QUAL (NEGATIVE)
[2016-10-30] VITALS (21 sets, daily range): BP systolic 113–153; BP diastolic 59–108; Ht 165.1 cm; Wt 111.4 kg
--- NOTE | 2016-10-30 00:25 | NUR ---
PT ARRIVED TO ICU FROM ER. NSR SHOWING ON MONITOR. 100% ON ROOM AIR. RR EQUAL UNLABORED. RADIAL AND PEDAL PULSES PALPATED. GAIT STEADY. BOWEL SOUNDS ACTIVE X4. DENIES PAIN. AAO. DENIES ANY NEEDS AT THIS TIME.
--- NOTE | 2016-10-30 00:45 | NUR ---
MOTHER OF PT ATTEMPTED TO CONTACT ICU; DID NOT HAVE PASSWORD.
--- NOTE | 2016-10-30 02:30 | NUR ---
PT STATES WAS NOT TRYING TO KILL SELF TAKING MEDICATIONS. STATES WAS HAVING ANXIETY AND WAS TRYING TO CALM DOWN. TOOK EXTRA ANXIETY MEDS FOR ANXIETY, ONLY TOOK 2 BP MEDS BECAUSE WAS WORKED UP, AND TOOK GLUCOSE PILLS BECAUSE WHEN ANXIETY KICKS IN GLUCOSE IS HIGH. PER PT.
--- NOTE | 2016-10-30 03:00 | NUR ---
REASSESSMENT COMPLETE. NO ACUTE CHANGES FROM PREVIOUS ASSESSMENT. BREATHING NON LABORED; DENIES PAIN.
[2016-10-30 05:10] LABS: HEMATOCRIT 40.8 % (36.0-48.0); HEMOGLOBIN 14.3 g/dL (12-16); MCH 29.8 pg (26.0-34.0); MEAN PLATELET VOLUME 9.1 fL (7.4-10.4); PLATELET COUNT 283 10x3/uL (130-400); RDW 12.2 % (11.5-14.5); WBC 8.2 10x3/uL (4.8-10.8)
[2016-10-30 05:30] LABS: ALBUMIN 3.4 g/dL (3.4-5.0); ANION GAP 11.7 mmol/L (8-16); BILIRUBIN - TOTAL 0.3 mg/dL (0.2-1.3); CALCIUM 8.9 mg/dL (8.5-10.1); CARBON DIOXIDE 24.8 mmol/L (21.0-32.0); POTASSIUM - SERUM 3.5 mmol/L (3.5-5.1)
--- NOTE | 2016-10-30 05:32 | NUR ---
PT RESTING; EYES CLOSED. VSS. NO DISTRESS NOTED. CALL LIGHT IN REACH. WILL CONTINUE TO MONITOR.
[2016-10-30 05:40] LABS: LYMPHOCYTES 61 % (15-50); MONOCYTES 4 % (2-11); NEUTROPHILS 31 % (40-80); PLATELET ESTIMATE NORMAL
--- NOTE | 2016-10-30 07:00 | NUR ---
REC'D REPORT AND RESUMED ACARE, SLEEPING AROUSABLE TO VERBAL STIMULI, VSS, C/O PAIN IN ABDOMEN, 05/21, REPOSITIONS SELF, ASSESSMENT COMPLETE PER FLOWSHEET, NO NEEDS AT THIS TIME, CALL LIGHT IN REACH
--- NOTE | 2016-10-30 07:02 | NUR ---
PT RECEIVED COPY OF LIST OF MEDICATIONS BEING SENT TO PHARMACY. VERIFIED MEDICATIONS.
--- NOTE | 2016-10-30 07:42 | NUR ---
BREAKFAST TRAY TO BEDSIDE, INDEPENDENT WITH SET UP AND EATING
--- NOTE | 2016-10-30 10:00 | NUR ---
SET UP FOR MORNING CARE GIVEN, OOB TO SINK FOR BATHING, TOLERATED WITHOUT DIFFICULTY, BED LINEN CHANGED, UP TO SIDE OF BED, CALL LIGHT IN REACH, VOICES NO OTHER NEEDS AT THIS TIME
[2016-10-30 10:09] LABS: HEMOGLOBIN A1C 8.3 % (4.8-6.0)
--- NOTE | 2016-10-30 10:43 | NUR ---
CASE MANAGEMENT AT BEDSIDE
--- NOTE | 2016-10-30 11:00 | NUR ---
UP IN CHAIR WATCHING TV WITH NO SIGNS OF DISTRESS, VSS, ASSESSMENT COMPLETE PER FLOWSHEET, CALL LIGHT IN REACH, NO NEEDS AT THIS TIME
--- NOTE | 2016-10-30 15:26 | NUR ---
* Is the patient Alert and Oriented? Yes 0 * How many steps to enter\\exit or inside your home? 3 0 * PCP No PCP Dr. Staley - [facility] Dr. Garcia 0 * Preadmission Environment Home with Family 0 * ADLs Independent 0 * List name and contact numbers for known caregivers / representatives who currently or will assist patient after discharge: Parents - Jacque Palma [phone] 0 * Additional services required to return to the preadmission environment? No 0 * Can the patient safely return to the preadmission environment? Yes 0 * Has this patient been hospitalized within the prior 30 days at any hospital? No Patient Name: JANN Coppola RUBALCAVA Admission Status: ER Accout number: [id number] Admission Date: 10-29-2016 : 1975 Admission Diagnosis: Attending: MALLORY GUERRERO Current LOS: 1 Anticipated DC Date: 10-30-2016 Planned Disposition: Home Primary Insurance: MEDICARE A & B Discharge Planning Comments: CM met with patient at bedside. Patient is alert & oriented. She states she intentionally took 3 extra Hydroxyzine & 1 extra Lisinopril yesterday because, "I was really nervous couldn't sleep & my blood pressure was 130/118". She states "I can take my Hydroxyzine TID PRN". She states she was not trying to harm herself. She see's Dr. Staley at [facility] & see's a therapist there on a regular basis. Spoke with appt. desk at clinic - Patient missed her 1100 therapy appointment today - her next appt. is 11/08 @ 1500 - update provided regarding hospitalization. Patient reports she lives at home with her parents. She states she is independent with all ADL's & AIDL's. At sc, she will return home with family. CM will follow & assist as needed. Agricultural Technician: Jessica Franklin
--- NOTE | 2016-10-30 15:34 | HP ---
PATIENT: JANN LUCIO MEDICAL RECORD: [id number] ACCOUNT: [id number] LOCATION:[facility] : [birth year] ADMISSION DATE: 10/29/16 HISTORY AND PHYSICAL EXAMINATION HISTORY OF PRESENT ILLNESS: Ms. Lucio is a 40-year-old white female that presents to the Emergency Room after taking an overdose of hydroxyzine at home last night, states she has been under a lot of stress. She has had 2 previous intentional overdoses in the past. Today, she states that this was not intentional that she just wanted to sleep. In the Emergency Room, it was reported that she took hydroxyzine, lisinopril, and metformin. She states that she just took hydroxyzine this morning. She states that she has been under a lot of stress. Her parents have been arguing. She has been started on some new medications for her blood pressure. She is a diabetic and is followed by Dr. Garcia for her diabetes. She received mental health treatment through [facility]. She medically appears stable. Her labs all look okay. She is complaining of a little bit of nausea, but her vitals look good. She is admitted to the ICU so that she can be monitored for self harm, medically she is stable. PAST MEDICAL HISTORY: Significant for some recent abdominal pain. She has a history of depression and drug abuse. She does test positive for benzos and cannabis. She has a history of some low back pain, diabetes, pseudoseizures. PAST SURGICAL HISTORY: Previous surgeries include a hysterectomy with bilateral salpingo-oophorectomy. ALLERGIES OR INTOLERANCES: INCLUDE LAMICTAL, HALDOL, KETOROLAC, AMOXICILLIN, CIPRO, DOXYCYCLINE AND MEPERIDINE. HOME MEDICATIONS: Include metformin 1000 b.i.d., levothyroxine 300 mcg a day, glimepiride 4 mg a day, ProAir p.r.n., sertraline 100 mg daily, imipramine 25 at h.s., Loxitane 10 mg b.i.d., prazosin 2 mg at h.s., bupropion XR 150 daily, Trulicity 1.5 once a week, Estradiol 1 mg a day, pantoprazole 40 mg a day, mirtazapine 30 mg a day. FAMILY HISTORY: Significant for cardiovascular disease. SOCIAL HISTORY: The patient has been a smoker in the past. No alcohol. Tested positive for marijuana. PHYSICAL EXAMINATION: GENERAL: She is in no distress. She is conversant. HEENT: Head is normocephalic, amblyopia in the right eye. Mucous membranes appear moist. NECK: Soft and supple. HEART: Regular. LUNGS: Clear. ABDOMEN: Soft. No edema. NEUROLOGIC: No focal neurological deficits. Mood at this time is pretty normal. IMPRESSION: 1. Overdose. 2. History of overdose. HISTORY AND PHYSICAL [id number] JANN LUCIO 3. Depression with other psych disorders, obesity, type 2 diabetes, hypertension. PLAN: Admit, psych consult, hold diabetes meds for now, we will just do a sliding scale to see her sugars to check a TSH and hemoglobin A1c, monitor for self harm, continue most of her psych meds. We will hold Remeron right now and imipramine. Await psych recommendations. TRANSINT:[id number] Voice Confirmation ID: [id number] DOCUMENT ID: [id number] MALLORY GUERRERO DO at 1534 CC: [id number] DICTATION DATE: 10/30/16 0939 PIE BOTTOMER: 10/30/16 1053 ADM IN [facility] [address] [place] [address]
[2016-10-30] MEDS ORDERED: TRULICITY1.5 MG/0.5 SC (16:13)
[2016-10-30] MEDS ORDERED: EFFEXOR XR150 MG PO (16:15)
[2016-10-30] MEDS ORDERED: LISINOPRIL10 MG PO (16:17)
== END 2016-10-30 19:08 | disposition home or self-care (01) ==
LOC: D.ER 19:12 → OBSVTIME 22:50 → D.ICU 22:50
PROVIDERS: Family Medicine; Physician Assistant Medical; ADMIT Family Medicine
DX: T43.591A Poisoning by other antipsychotics and neuroleptics, accidental (unintentional), initial encounter (principal); E11.9 Type 2 diabetes mellitus without complications; F32.9 Major depressive disorder, single episode, unspecified; E66.9 Obesity, unspecified; I10 Essential (primary) hypertension; Z87.891 Personal history of nicotine dependence

== ENCOUNTER 2016-11-17 14:24 | Emergency (ER) | payer MEDICARE ==
[2016-10-30 01:01] VITALS: BMI 40.8
[~2016-11-17 14:24] MED LIST changes: +EFFEXOR XR150 MG PO
[2016-11-17 16:34] LABS: BASOPHILS 0.1 % (0-2); EOSINOPHILS 0.1 % (0-7); HEMATOCRIT 42.4 % (36.0-48.0); HEMOGLOBIN 14.8 g/dL (12-16); IMMATURE GRANULOCYTES 0.4 % (0-5); LYMPHOCYTES 41.6 % (15-50); MCH 30.1 pg (26.0-34.0); MCHC 34.9 g/dL (31.0-37.0); MCV 86.4 fL (80.0-100.0); MEAN PLATELET VOLUME 9.5 fL (7.4-10.4); MONOCYTES 5.9 % (2-11); NEUTROPHILS 51.9 % (40-80); PLATELET COUNT 262 10x3/uL (130-400); RBC 4.91 10x6/uL (4.00-5.40); RDW 12.3 % (11.5-14.5)
[2016-11-17 16:54] LABS: ALBUMIN 3.7 g/dL (3.4-5.0); ANION GAP 18.4 mmol/L (8-16); BILIRUBIN - TOTAL 0.33 mg/dL (0.2-1.3); CALCIUM 9.8 mg/dL (8.5-10.1); CARBON DIOXIDE 22.6 mmol/L (21.0-32.0); CREATININE - SERUM 1.3 mg/dL (0.6-1.3); PROTEIN - SERUM 8.1 g/dL (6.4-8.2)
[2016-11-17 19:40] LABS: APPEARANCE CLEAR (CLEAR); COLOR YELLOW (YELLOW)
[2016-11-17 19:41] LABS: BILIRUBIN NEGATIVE (NEGATIVE); GLUCOSE 1000 mg/dL (NEGATIVE); KETONE NEGATIVE (NEGATIVE); NITRITE NEGATIVE (NEGATIVE); PROTEIN NEGATIVE (NEGATIVE); UROBILINOGEN NORMAL (NORMAL)
[2016-11-17 19:44] LABS: UDS - AMPHET NEGATIVE QUAL (NEGATIVE); UDS - BARB NEGATIVE QUAL (NEGATIVE); UDS - BENZO POSITIVE QUAL (NEGATIVE); UDS - COCAINE POSITIVE QUAL (NEGATIVE); UDS - OPIATE NEGATIVE QUAL (NEGATIVE); UDS - PCP NEGATIVE QUAL (NEGATIVE); UDS - THC POSITIVE QUAL (NEGATIVE)
[2017-02-19] MEDS ORDERED: KLONOPIN1 MG PO (07:30)
== END 2016-11-18 03:27 | disposition home or self-care (01) ==
LOC: D.ER 14:24
PROVIDERS: Emergency Medicine; Nurse Practitioner Acute Care
DX: F33.9 Major depressive disorder, recurrent, unspecified (principal); R45.851 Suicidal ideations; F12.10 Cannabis abuse, uncomplicated; F14.10 Cocaine abuse, uncomplicated; F13.10 Sedative, hypnotic or anxiolytic abuse, uncomplicated; E11.9 Type 2 diabetes mellitus without complications; Z91.14 Patient's other noncompliance with medication regimen

== ENCOUNTER 2016-12-07 04:16 | Emergency (ER) | payer MEDICARE ==
[2016-10-30 01:01] VITALS: BMI 40.8
[2016-12-07 05:06] LABS: BASOPHILS 0.2 % (0-2); EOSINOPHILS 0.5 % (0-7); HEMATOCRIT 42.8 % (36.0-48.0); HEMOGLOBIN 14.9 g/dL (12-16); IMMATURE GRANULOCYTES 0.7 % (0-5); MCH 30.5 pg (26.0-34.0); MCHC 34.8 g/dL (31.0-37.0); MCV 87.5 fL (80.0-100.0); MEAN PLATELET VOLUME 9.6 fL (7.4-10.4); MONOCYTES 4.8 % (2-11); NEUTROPHILS 52.8 % (40-80); RBC 4.89 10x6/uL (4.00-5.40); RDW 12.8 % (11.5-14.5)
[2016-12-07 05:07] LABS: PLATELET COUNT 331 10x3/uL (130-400)
[2016-12-07 05:19] LABS: ALBUMIN 3.9 g/dL (3.4-5.0); ANION GAP 17.3 mmol/L (8-16); BILIRUBIN - TOTAL 0.18 mg/dL (0.2-1.3); CALCIUM 9.4 mg/dL (8.5-10.1); CARBON DIOXIDE 22.4 mmol/L (21.0-32.0); CREATININE - SERUM 1.3 mg/dL (0.6-1.3); POTASSIUM - SERUM 3.7 mmol/L (3.5-5.1); PROTEIN - SERUM 8.5 g/dL (6.4-8.2)
[2017-02-19] MEDS ORDERED: KLONOPIN1 MG PO (07:30)
== END 2016-12-07 06:37 | disposition home or self-care (01) ==
LOC: D.ER 04:16
PROVIDERS: Emergency Medicine
DX: J20.9 Acute bronchitis, unspecified (principal); E11.65 Type 2 diabetes mellitus with hyperglycemia; R11.2 Nausea with vomiting, unspecified

== ENCOUNTER 2016-12-12 19:22 | Emergency (ER) | payer MEDICARE ==
[2016-10-30 01:01] VITALS: BMI 40.8
[2016-12-12 20:27] LABS: BASOPHILS 0.2 % (0-2); EOSINOPHILS 0.7 % (0-7); HEMATOCRIT 42.8 % (36.0-48.0); HEMOGLOBIN 14.9 g/dL (12-16); IMMATURE GRANULOCYTES 0.4 % (0-5); LYMPHOCYTES 39.6 % (15-50); MCH 30.8 pg (26.0-34.0); MCHC 34.8 g/dL (31.0-37.0); MCV 88.4 fL (80.0-100.0); MEAN PLATELET VOLUME 9.4 fL (7.4-10.4); MONOCYTES 5.5 % (2-11); NEUTROPHILS 53.6 % (40-80); PLATELET COUNT 311 10x3/uL (130-400); RBC 4.84 10x6/uL (4.00-5.40)
[2016-12-12 20:49] LABS: ALBUMIN 3.9 g/dL (3.4-5.0); ANION GAP 15.6 mmol/L (8-16); BILIRUBIN - TOTAL 0.23 mg/dL (0.2-1.3); CALCIUM 8.8 mg/dL (8.5-10.1); CARBON DIOXIDE 21.9 mmol/L (21.0-32.0); CREATININE - SERUM 1.1 mg/dL (0.6-1.3); POTASSIUM - SERUM 3.5 mmol/L (3.5-5.1); PROTEIN - SERUM 8.5 g/dL (6.4-8.2)
[2017-02-19] MEDS ORDERED: KLONOPIN1 MG PO (07:30)
== END 2016-12-12 22:50 | disposition home or self-care (01) ==
LOC: D.ER 19:22
PROVIDERS: Emergency Medicine
DX: R11.10 Vomiting, unspecified (principal); J30.9 Allergic rhinitis, unspecified; E11.9 Type 2 diabetes mellitus without complications; F17.200 Nicotine dependence, unspecified, uncomplicated

== ENCOUNTER 2017-01-27 04:49 | Emergency (ER) | payer MEDICARE ==
[2016-10-30 01:01] VITALS: BMI 40.8
[2017-01-27 05:13] LABS: APPEARANCE CLEAR (CLEAR); COLOR YELLOW (YELLOW); GLUCOSE 500 mg/dL (NEGATIVE); NITRITE NEGATIVE (NEGATIVE); PROTEIN NEGATIVE (NEGATIVE)
[2017-01-27 05:14] LABS: BILIRUBIN NEGATIVE (NEGATIVE); KETONE NEGATIVE (NEGATIVE); UROBILINOGEN NORMAL (NORMAL)
[2017-01-27 05:57] LABS: BASOPHILS 0.2 % (0-2); EOSINOPHILS 3.8 % (0-7); HEMATOCRIT 40.5 % (36.0-48.0); HEMOGLOBIN 14.4 g/dL (12-16); IMMATURE GRANULOCYTES 0.4 % (0-5); MCH 30.9 pg (26.0-34.0); MCHC 35.6 g/dL (31.0-37.0); MCV 86.9 fL (80.0-100.0); MEAN PLATELET VOLUME 9.6 fL (7.4-10.4); MONOCYTES 4.2 % (2-11); NEUTROPHILS 50.4 % (40-80); RBC 4.66 10x6/uL (4.00-5.40); RDW 12.6 % (11.5-14.5); WBC 8.1 10x3/uL (4.8-10.8)
[2017-01-27 06:01] LABS: PLATELET COUNT 247 10x3/uL (130-400)
[2017-01-27 06:11] LABS: HCG SERUM NEGATIVE (NEGATIVE)
[2017-01-27 06:16] LABS: ALBUMIN 3.5 g/dL (3.4-5.0); ANION GAP 15.7 mmol/L (8-16); BILIRUBIN - TOTAL 0.3 mg/dL (0.2-1.3); CALCIUM 9.1 mg/dL (8.5-10.1); CARBON DIOXIDE 21.9 mmol/L (21.0-32.0); POTASSIUM - SERUM 3.6 mmol/L (3.5-5.1); PROTEIN - SERUM 7.1 g/dL (6.4-8.2)
[2017-02-19] MEDS ORDERED: KLONOPIN1 MG PO (07:30)
== END 2017-01-27 08:03 | disposition home or self-care (01) ==
LOC: D.ER 04:49
PROVIDERS: Emergency Medicine
DX: K80.50 Calculus of bile duct without cholangitis or cholecystitis without obstruction (principal); E11.65 Type 2 diabetes mellitus with hyperglycemia; F17.200 Nicotine dependence, unspecified, uncomplicated

== ENCOUNTER 2017-02-13 20:37 | Emergency (ER) | payer MEDICARE ==
[2016-10-30 01:01] VITALS: BMI 40.8
[2017-02-19] MEDS ORDERED: KLONOPIN1 MG PO (07:30)
== END 2017-02-13 22:14 | disposition home or self-care (01) ==
LOC: D.ER 20:37
DX: J20.9 Acute bronchitis, unspecified (principal); F17.200 Nicotine dependence, unspecified, uncomplicated; F14.90 Cocaine use, unspecified, uncomplicated

== ENCOUNTER 2017-04-05 08:41 | Emergency (ER) | payer MEDICARE ==
[2016-10-30 01:01] VITALS: BMI 40.8
[~2017-04-05 08:41] MED LIST changes: +KLONOPIN1 MG PO
== END 2017-04-05 10:25 | disposition home or self-care (01) ==
LOC: D.ER 08:41
DX: S70.02XA Contusion of left hip, initial encounter (principal); W01.0XXA Fall on same level from slipping, tripping and stumbling without subsequent striking against object, initial encounter; Y93.89 Activity, other specified; Y92.019 Unspecified place in single-family (private) house as the place of occurrence of the external cause

== ENCOUNTER 2017-04-23 00:54 | Emergency (ER) | payer MEDICARE ==
[2016-10-30 01:01] VITALS: BMI 40.8
== END 2017-04-23 01:59 | disposition left against medical advice (07) ==
LOC: D.ER 00:54
DX: R10.9 Unspecified abdominal pain (principal); E11.9 Type 2 diabetes mellitus without complications

== ENCOUNTER 2017-04-23 07:05 | Emergency (ER) | payer MEDICARE ==
[2016-10-30 01:01] VITALS: BMI 40.8
[2017-04-23 07:48] LABS: APPEARANCE HAZY (CLEAR); BACTERIA MODERATE /hpf (NONE SEEN); BILIRUBIN NEGATIVE (NEGATIVE); COLOR YELLOW (YELLOW); GLUCOSE 1000 mg/dL (NEGATIVE); KETONE NEGATIVE (NEGATIVE); NITRITE NEGATIVE (NEGATIVE); PROTEIN NEGATIVE (NEGATIVE); RED CELLS - URINE OCC /hpf (0-5); SPECIFIC GRAVITY 1.015 (1.005-1.020); UROBILINOGEN NORMAL (NORMAL)
[2017-04-23 08:37] LABS: BASOPHILS 0.3 % (0-2); HEMATOCRIT 41.1 % (36.0-48.0); HEMOGLOBIN 14.5 g/dL (12-16); IMMATURE GRANULOCYTES 0.5 % (0-5); LYMPHOCYTES 43.1 % (15-50); MCH 30.6 pg (26.0-34.0); MCHC 35.3 g/dL (31.0-37.0); MCV 86.7 fL (80.0-100.0); MEAN PLATELET VOLUME 9.2 fL (7.4-10.4); MONOCYTES 6.5 % (2-11); NEUTROPHILS 47.6 % (40-80); PLATELET COUNT 245 10x3/uL (130-400); RBC 4.74 10x6/uL (4.00-5.40); RDW 11.9 % (11.5-14.5); WBC 7.4 10x3/uL (4.8-10.8)
[2017-04-23 08:50] LABS: HCG SERUM NEGATIVE (NEGATIVE)
[2017-04-23 08:54] LABS: ALBUMIN 3.7 g/dL (3.4-5.0); ANION GAP 16.3 mmol/L (8-16); BILIRUBIN - TOTAL 0.26 mg/dL (0.2-1.3); CALCIUM 9.3 mg/dL (8.5-10.1); CARBON DIOXIDE 25.2 mmol/L (21.0-32.0); CREATININE - SERUM 1.1 mg/dL (0.6-1.3); POTASSIUM - SERUM 3.5 mmol/L (3.5-5.1)
== END 2017-04-23 09:11 | disposition home or self-care (01) ==
LOC: D.ER 07:05
PROVIDERS: Emergency Medicine
DX: N39.0 Urinary tract infection, site not specified (principal); N30.90 Cystitis, unspecified without hematuria; F17.200 Nicotine dependence, unspecified, uncomplicated; E11.9 Type 2 diabetes mellitus without complications

== ENCOUNTER 2017-04-30 01:48 | Observation (INO) | payer MEDICARE ==
[2016-10-30 01:01] VITALS: BMI 40.8
[2017-04-30 02:19] LABS: APPEARANCE CLEAR (CLEAR); BILIRUBIN NEGATIVE (NEGATIVE); COLOR STRAW (YELLOW); GLUCOSE 1000 mg/dL (NEGATIVE); KETONE NEGATIVE (NEGATIVE); NITRITE NEGATIVE (NEGATIVE); PROTEIN NEGATIVE (NEGATIVE); SPECIFIC GRAVITY 1.005 (1.005-1.020); UROBILINOGEN NORMAL (NORMAL)
[2017-04-30 02:20] LABS: HCG URINE NEGATIVE (NEGATIVE)
[2017-04-30 02:32] LABS: UDS - AMPHET NEGATIVE QUAL (NEGATIVE); UDS - BARB NEGATIVE QUAL (NEGATIVE); UDS - BENZO NEGATIVE QUAL (NEGATIVE); UDS - COCAINE POSITIVE QUAL (NEGATIVE); UDS - OPIATE NEGATIVE QUAL (NEGATIVE); UDS - PCP NEGATIVE QUAL (NEGATIVE); UDS - THC NEGATIVE QUAL (NEGATIVE)
[2017-04-30 02:40] LABS: BASOPHILS 0.2 % (0-2); EOSINOPHILS 1.1 % (0-7); HEMOGLOBIN 12.5 g/dL (12-16); LYMPHOCYTES 23.6 % (15-50); MCHC 32.9 g/dL (31.0-37.0); MCV 91.3 fL (80.0-100.0); MEAN PLATELET VOLUME 9.7 fL (7.4-10.4); MONOCYTES 8.2 % (2-11); NEUTROPHILS 65.9 % (40-80); PLATELET COUNT 244 10x3/uL (130-400); RBC 4.16 10x6/uL (4.00-5.40); RDW 12.9 % (11.5-14.5)
[2017-04-30 02:48] LABS: KETONE - SERUM NEGATIVE (NEGATIVE)
[2017-04-30 03:04] LABS: ALKALINE PHOSPHATASE 68 U/L (46-116); ALT (SGPT) 23 U/L (10-68); CALCIUM 9.9 mg/dL (8.5-10.1); CARBON DIOXIDE 21.2 mmol/L (21.0-32.0); CHLORIDE - SERUM 98 mmol/L (98-107); CREATININE - SERUM 1.3 mg/dL (0.6-1.3); POTASSIUM - SERUM 3.9 mmol/L (3.5-5.1); PRO BNP 98 pg/mL (0-125); PROTEIN - SERUM 7.5 g/dL (6.4-8.2); SODIUM 135 mmol/L (136-145); UREA NITROGEN 13 mg/dL (7-18); eGFR NON AFRICAN AMERICAN 48 mL/min (90-120)
[2017-04-30 03:05] LABS: CALC OSMOLALITY 304 mosm/kg (275-300); GLUCOSE 721 mg/dL (74-106)
[2017-05-01 00:52] LABS: ALBUMIN 3.2 g/dL (3.4-5.0); ALKALINE PHOSPHATASE 66 U/L (46-116); ALT (SGPT) 18 U/L (10-68); BILIRUBIN - TOTAL 0.29 mg/dL (0.2-1.3); CALC OSMOLALITY 275 mosm/kg (275-300); CALCIUM 9.4 mg/dL (8.5-10.1); CARBON DIOXIDE 29.2 mmol/L (21.0-32.0); CHLORIDE - SERUM 99 mmol/L (98-107); CREATININE - SERUM 0.7 mg/dL (0.6-1.3); POTASSIUM - SERUM 3.1 mmol/L (3.5-5.1); PROTEIN - SERUM 7.6 g/dL (6.4-8.2); SODIUM 138 mmol/L (136-145); UREA NITROGEN 11 mg/dL (7-18); eGFR NON AFRICAN AMERICAN > 90 mL/min (90-120)
[2017-05-01 00:53] LABS: GLUCOSE 114 mg/dL (74-106)
[2017-05-01 08:27] LABS: BASOPHILS 0.4 % (0-2); EOSINOPHILS 2.6 % (0-7); HEMATOCRIT 40.4 % (36.0-48.0); HEMOGLOBIN 13.7 g/dL (12-16); IMMATURE GRANULOCYTES 1.1 % (0-5); LYMPHOCYTES 35.7 % (15-50); MCH 29.8 pg (26.0-34.0); MCHC 33.9 g/dL (31.0-37.0); MEAN PLATELET VOLUME 9.5 fL (7.4-10.4); MONOCYTES 6.6 % (2-11); NEUTROPHILS 53.6 % (40-80); PLATELET COUNT 264 10x3/uL (130-400); RBC 4.59 10x6/uL (4.00-5.40); RDW 12.5 % (11.5-14.5); WBC 9.7 10x3/uL (4.8-10.8)
[2017-05-01 08:42] LABS: ANION GAP 15.7 mmol/L (8-16); BILIRUBIN - TOTAL 0.3 mg/dL (0.2-1.3); CALCIUM 8.9 mg/dL (8.5-10.1); CARBON DIOXIDE 23.5 mmol/L (21.0-32.0); PROTEIN - SERUM 7.3 g/dL (6.4-8.2)
[2017-05-01 08:44] LABS: CREATININE - SERUM 0.9 mg/dL (0.6-1.3); POTASSIUM - SERUM 4.2 mmol/L (3.5-5.1)
== END 2017-05-01 09:17 | disposition home or self-care (01) ==
LOC: OBSVTIME → D.ER 01:48 → D.EDHOLD 08:35 → OBSVTIME 08:35 → D.EDHOLD 18:07 → D.ICU 18:24 → D.EDHOLD 18:24 → D.ICU 19:25 → D.EDHOLD 19:25
PROVIDERS: Family Medicine; Family Medicine Adult Medicine
DX: E11.65 Type 2 diabetes mellitus with hyperglycemia (principal); R45.851 Suicidal ideations; F41.8 Other specified anxiety disorders; F14.90 Cocaine use, unspecified, uncomplicated; F43.10 Post-traumatic stress disorder, unspecified; G47.33 Obstructive sleep apnea (adult) (pediatric); G80.9 Cerebral palsy, unspecified

== ENCOUNTER 2017-05-19 01:43 | Emergency (ER) | payer MEDICARE ==
[2016-10-30 01:01] VITALS: BMI 40.8
[2017-05-19 02:03] LABS: APPEARANCE CLEAR (CLEAR); BILIRUBIN NEGATIVE (NEGATIVE); COLOR YELLOW (YELLOW); GLUCOSE 250 mg/dL (NEGATIVE); KETONE NEGATIVE (NEGATIVE); NITRITE NEGATIVE (NEGATIVE); PROTEIN NEGATIVE (NEGATIVE); UROBILINOGEN NORMAL (NORMAL)
== END 2017-05-19 02:44 | disposition home or self-care (01) ==
LOC: D.ER 01:43
PROVIDERS: Emergency Medicine
DX: N23 Unspecified renal colic (principal); F17.200 Nicotine dependence, unspecified, uncomplicated

== ENCOUNTER 2017-05-20 07:31 | Emergency (ER) | payer MEDICARE ==
[2016-10-30 01:01] VITALS: BMI 40.8
[2017-05-20 08:05] LABS: APPEARANCE SLT CLOUDY (CLEAR); BILIRUBIN NEGATIVE (NEGATIVE); COLOR YELLOW (YELLOW); GLUCOSE 500 mg/dL (NEGATIVE); KETONE NEGATIVE (NEGATIVE); NITRITE NEGATIVE (NEGATIVE); PROTEIN NEGATIVE (NEGATIVE); UROBILINOGEN NORMAL (NORMAL)
[2017-05-20 08:08] LABS: BACTERIA MODERATE /hpf (NONE SEEN); MUCUS <1+ /lpf (NONE SEEN); RED CELLS - URINE OCC /hpf (0-5)
[2017-05-20 08:43] LABS: KETONE - SERUM NEGATIVE (NEGATIVE)
[2017-05-20 08:45] LABS: CALC OSMOLALITY 282 mosm/kg (275-300); CALCIUM 8.7 mg/dL (8.5-10.1); CHLORIDE - SERUM 99 mmol/L (98-107); CREATININE - SERUM 0.9 mg/dL (0.6-1.3); GLUCOSE 342 mg/dL (74-106); POTASSIUM - SERUM 3.5 mmol/L (3.5-5.1); SODIUM 135 mmol/L (136-145); UREA NITROGEN 10 mg/dL (7-18); eGFR NON AFRICAN AMERICAN 74 mL/min (90-120)
== END 2017-05-20 08:51 | disposition home or self-care (01) ==
LOC: D.ER 07:31
PROVIDERS: Emergency Medicine
DX: N23 Unspecified renal colic (principal); N39.0 Urinary tract infection, site not specified; E11.65 Type 2 diabetes mellitus with hyperglycemia; Z79.4 Long term (current) use of insulin; F17.200 Nicotine dependence, unspecified, uncomplicated

== ENCOUNTER 2017-05-28 00:14 | Emergency (ER) | payer MEDICARE ==
[2016-10-30 01:01] VITALS: BMI 40.8
[2017-05-28 00:52] LABS: APPEARANCE HAZY (CLEAR); BILIRUBIN NEGATIVE (NEGATIVE); COLOR YELLOW (YELLOW); GLUCOSE 1000 mg/dL (NEGATIVE); KETONE SMALL mg/dL (NEGATIVE); NITRITE NEGATIVE (NEGATIVE); PROTEIN NEGATIVE (NEGATIVE); SPECIFIC GRAVITY 1.015 (1.005-1.020); UROBILINOGEN NORMAL (NORMAL)
[2017-05-28 00:53] LABS: BACTERIA MANY /hpf (NONE SEEN); EPITHELIAL CELLS 0-5 /hpf (0-5); RED CELLS - URINE 0-5 /hpf (0-5); WHITE CELLS - URINE 0-5 /hpf (0-5); YEAST <1+ /hpf (NONE SEEN)
[2017-05-28 01:09] LABS: BASOPHILS 0.2 % (0-2); EOSINOPHILS 0.7 % (0-7); HEMOGLOBIN 15.7 g/dL (12-16); IMMATURE GRANULOCYTES 0.2 % (0-5); LYMPHOCYTES 26.5 % (15-50); MCH 30.9 pg (26.0-34.0); MCHC 35.7 g/dL (31.0-37.0); MCV 86.6 fL (80.0-100.0); MEAN PLATELET VOLUME 9.7 fL (7.4-10.4); MONOCYTES 5.8 % (2-11); NEUTROPHILS 66.6 % (40-80); PLATELET COUNT 331 10x3/uL (130-400); RBC 5.08 10x6/uL (4.00-5.40); RDW 12.8 % (11.5-14.5); WBC 12.5 10x3/uL (4.8-10.8)
[2017-05-28 01:19] LABS: KETONE - SERUM SMALL mg/dL (NEGATIVE)
[2017-05-28 01:23] LABS: ALBUMIN 3.6 g/dL (3.4-5.0); ALKALINE PHOSPHATASE 61 U/L (46-116); ALT (SGPT) 22 U/L (10-68); AMYLASE - SERUM 31 U/L (25-115); CALC OSMOLALITY 277 mosm/kg (275-300); CALCIUM 8.9 mg/dL (8.5-10.1); CARBON DIOXIDE 22.7 mmol/L (21.0-32.0); CHLORIDE - SERUM 96 mmol/L (98-107); CREATININE - SERUM 1.3 mg/dL (0.6-1.3); LIPASE 246 U/L (73-393); POTASSIUM - SERUM 3.6 mmol/L (3.5-5.1); PROTEIN - SERUM 8.1 g/dL (6.4-8.2); SODIUM 128 mmol/L (136-145); UREA NITROGEN 11 mg/dL (7-18); eGFR NON AFRICAN AMERICAN 48 mL/min (90-120)
[2017-05-28 01:31] LABS: GLUCOSE 496 mg/dL (74-106)
[2017-05-28 02:10] LABS: HCG SERUM NEGATIVE (NEGATIVE)
== END 2017-05-28 04:40 | disposition home or self-care (01) ==
LOC: D.ER 00:14
PROVIDERS: Family Medicine
DX: R10.9 Unspecified abdominal pain (principal); N39.0 Urinary tract infection, site not specified; E11.65 Type 2 diabetes mellitus with hyperglycemia; Z79.4 Long term (current) use of insulin

== ENCOUNTER 2017-06-16 18:19 | Emergency (ER) | payer MEDICARE ==
[2016-10-30 01:01] VITALS: BMI 40.8
[2017-06-16 18:44] LABS: BASOPHILS 0.3 % (0-2); EOSINOPHILS 0 % (0-7); HEMATOCRIT 39.1 % (36.0-48.0); HEMOGLOBIN 13.4 g/dL (12-16); IMMATURE GRANULOCYTES 0.1 % (0-5); LYMPHOCYTES 38.8 % (15-50); MCHC 34.3 g/dL (31.0-37.0); MCV 87.5 fL (80.0-100.0); MEAN PLATELET VOLUME 9.2 fL (7.4-10.4); MONOCYTES 5.6 % (2-11); NEUTROPHILS 55.2 % (40-80); PLATELET COUNT 244 10x3/uL (130-400); RBC 4.47 10x6/uL (4.00-5.40); RDW 12.4 % (11.5-14.5); WBC 6.7 10x3/uL (4.8-10.8)
[2017-06-16 19:16] LABS: ALBUMIN 3.3 g/dL (3.4-5.0); ALKALINE PHOSPHATASE 49 U/L (46-116); ALT (SGPT) 15 U/L (10-68); CALCIUM 8.7 mg/dL (8.5-10.1); CARBON DIOXIDE 27.8 mmol/L (21.0-32.0); CKMB 1.3 U/L (0.0-3.6); CREATINE KINASE 8 UL (21-215); CREATININE - SERUM 0.4 mg/dL (0.6-1.3); PROTEIN - SERUM 6.8 g/dL (6.4-8.2); TROPONIN-I < 0.017 ng/mL (0.000-0.060); UREA NITROGEN 10 mg/dL (7-18); eGFR NON AFRICAN AMERICAN > 90 mL/min (90-120)
[2017-06-16 19:17] LABS: CALC OSMOLALITY 284 mosm/kg (275-300); CHLORIDE - SERUM 102 mmol/L (98-107); GLUCOSE 277 mg/dL (74-106); POTASSIUM - SERUM 3.8 mmol/L (3.5-5.1); SODIUM 138 mmol/L (136-145)
== END 2017-06-16 20:37 | disposition home or self-care (01) ==
LOC: D.ER 18:19
PROVIDERS: Family Medicine
DX: R07.89 Other chest pain (principal); E11.65 Type 2 diabetes mellitus with hyperglycemia; Z79.4 Long term (current) use of insulin; F17.200 Nicotine dependence, unspecified, uncomplicated

== ENCOUNTER 2017-07-17 00:27 | Emergency (ER) | payer MEDICARE ==
[~2017-07-17] VITALS: Ht 165.1 cm; Wt 109.1 kg
[2017-07-17 00:37] VITALS: Ht 165.1 cm; Wt 109.1 kg
[2017-07-17] MEDS ORDERED: BUPROPION XL300 MG PO (00:41)
[2017-07-17] MEDS ORDERED: DOXYCYCLINE HY100 M2 PO (00:42)
[2017-07-17] MEDS ORDERED: THORAZINE25 MG PO (00:42)
[2017-07-17] MEDS ORDERED: ELAVIL25 MG PO (00:42)
[2017-07-17] MEDS ORDERED: LEVEMIR100 U/M1 (00:43)
[2017-07-17] MEDS ORDERED: LOPRESSOR25 MG PO (00:44)
[2017-07-17] MEDS ORDERED: NOVOLOG100 U/M1 (00:44)
[2017-07-17 01:31] LABS: APPEARANCE SLT CLOUDY (CLEAR); BILIRUBIN NEGATIVE (NEGATIVE); COLOR YELLOW (YELLOW); GLUCOSE 1000 mg/dL (NEGATIVE); KETONE NEGATIVE (NEGATIVE); NITRITE NEGATIVE (NEGATIVE); PROTEIN NEGATIVE (NEGATIVE); UROBILINOGEN NORMAL (NORMAL)
[2017-07-17 01:32] LABS: BACTERIA FEW /hpf (NONE SEEN); EPITHELIAL CELLS 0-5 /hpf (0-5); RED CELLS - URINE 0-5 /hpf (0-5); WHITE CELLS - URINE 0-5 /hpf (0-5)
[2017-07-17 01:33] LABS: YEAST <1+ /hpf (NONE SEEN)
[2017-07-17] MEDS ORDERED: DIFLUCAN150 MG PO (01:57)
[2017-07-17] MEDS ORDERED: MACROBID100 MG PO (01:57)
[2017-07-17] MEDS ORDERED: GYNE-LOTRIMIN-745 GM VG (01:57)
[2017-07-17 02:47] VITALS: BP 129/87
== END 2017-07-17 02:49 | disposition home or self-care (01) ==
LOC: D.ER 00:27
PROVIDERS: Family Medicine
DX: B37.2 Candidiasis of skin and nail (principal); B37.3 Candidiasis of vulva and vagina; N39.0 Urinary tract infection, site not specified; N76.0 Acute vaginitis; I10 Essential (primary) hypertension; J45.909 Unspecified asthma, uncomplicated; K21.9 Gastro-esophageal reflux disease without esophagitis; F17.200 Nicotine dependence, unspecified, uncomplicated

== ENCOUNTER 2017-07-30 01:56 | Emergency (ER) | payer MEDICARE ==
[~2017-07-30] VITALS: Ht 165.1 cm; Wt 113.6 kg
[~2017-07-30 01:56] MED LIST changes: +BUPROPION XL300 MG PO; +DIFLUCAN150 MG PO; +DOXYCYCLINE HY100 M2 PO; +ELAVIL25 MG PO; +GYNE-LOTRIMIN-745 GM VG; +LEVEMIR100 U/M1; +LOPRESSOR25 MG PO; +MACROBID100 MG PO; +NOVOLOG100 U/M1; +THORAZINE25 MG PO
[2017-07-30 01:59] VITALS: Ht 165.1 cm; Wt 113.6 kg
[2017-07-30] MEDS ORDERED: FLAGYL500 MG PO (02:08)
[2017-07-30] MEDS ORDERED: NOVOLOG100 U/M1 SC (02:10)
[2017-07-30 02:28] LABS: BASOPHILS 0.3 % (0-2); EOSINOPHILS 1.5 % (0-7); HEMATOCRIT 42.6 % (36.0-48.0); HEMOGLOBIN 15.2 g/dL (12-16); IMMATURE GRANULOCYTES 0.5 % (0-5); LYMPHOCYTES 43.6 % (15-50); MCH 30.5 pg (26.0-34.0); MCHC 35.7 g/dL (31.0-37.0); MCV 85.4 fL (80.0-100.0); MEAN PLATELET VOLUME 10.1 fL (7.4-10.4); MONOCYTES 5.7 % (2-11); NEUTROPHILS 48.4 % (40-80); RBC 4.99 10x6/uL (4.00-5.40); RDW 12.6 % (11.5-14.5); WBC 10.5 10x3/uL (4.8-10.8)
[2017-07-30 02:30] LABS: PLATELET COUNT 295 10x3/uL (130-400)
[2017-07-30 02:34] LABS: APPEARANCE CLEAR (CLEAR); BILIRUBIN NEGATIVE (NEGATIVE); COLOR YELLOW (YELLOW); GLUCOSE 500 mg/dL (NEGATIVE); KETONE SMALL mg/dL (NEGATIVE); NITRITE NEGATIVE (NEGATIVE); PROTEIN NEGATIVE (NEGATIVE); UROBILINOGEN NORMAL (NORMAL)
[2017-07-30 02:35] LABS: KETONE - SERUM SMALL mg/dL (NEGATIVE)
[2017-07-30 02:42] LABS: ALBUMIN 3.6 g/dL (3.4-5.0); ALKALINE PHOSPHATASE 71 U/L (46-116); ALT (SGPT) 26 U/L (10-68); BILIRUBIN - TOTAL 0.35 mg/dL (0.2-1.3); CALCIUM 8.8 mg/dL (8.5-10.1); CARBON DIOXIDE 21.7 mmol/L (21.0-32.0); CHLORIDE - SERUM 90 mmol/L (98-107); CREATININE - SERUM 1.4 mg/dL (0.6-1.3); POTASSIUM - SERUM 3.6 mmol/L (3.5-5.1); PROTEIN - SERUM 7.7 g/dL (6.4-8.2); SODIUM 128 mmol/L (136-145); UREA NITROGEN 10 mg/dL (7-18); eGFR NON AFRICAN AMERICAN 44 mL/min (90-120)
[2017-07-30 02:43] LABS: CALC OSMOLALITY 287 mosm/kg (275-300); GLUCOSE 668 mg/dL (74-106)
[2017-07-30 02:46] LABS: UDS - AMPHET NEGATIVE QUAL (NEGATIVE); UDS - BARB NEGATIVE QUAL (NEGATIVE); UDS - BENZO NEGATIVE QUAL (NEGATIVE); UDS - COCAINE POSITIVE QUAL (NEGATIVE); UDS - OPIATE NEGATIVE QUAL (NEGATIVE); UDS - PCP NEGATIVE QUAL (NEGATIVE); UDS - THC POSITIVE QUAL (NEGATIVE)
[2017-07-30 06:23] VITALS: BP 150/91
== END 2017-07-30 06:28 | disposition home or self-care (01) ==
LOC: D.ER 01:56
PROVIDERS: Family Medicine
DX: E11.65 Type 2 diabetes mellitus with hyperglycemia (principal); F14.10 Cocaine abuse, uncomplicated; E87.6 Hypokalemia; I10 Essential (primary) hypertension; F17.200 Nicotine dependence, unspecified, uncomplicated

== ENCOUNTER 2017-08-10 14:53 | Inpatient (IN) | payer MEDICARE ==
[~2017-08-10] VITALS: Ht 165.1 cm; Wt 114.0 kg
[~2017-08-10 14:53] MED LIST changes: +FLAGYL500 MG PO; +NOVOLOG100 U/M1 SC
[2017-08-10] MEDS ORDERED: NEURONTIN 300300 MG PO (15:09)
[2017-08-10] MEDS ORDERED: VALIUM10 MG PO (15:10)
[2017-08-10] MEDS ORDERED: LATUDA40 MG PO (15:10)
[2017-08-10 15:21] LABS: APPEARANCE CLOUDY (CLEAR); BILIRUBIN NEGATIVE (NEGATIVE); COLOR YELLOW (YELLOW); GLUCOSE 1000 mg/dL (NEGATIVE); KETONE NEGATIVE (NEGATIVE); NITRITE NEGATIVE (NEGATIVE); PROTEIN NEGATIVE (NEGATIVE); UROBILINOGEN NORMAL (NORMAL)
[2017-08-10 16:06] LABS: BASOPHILS 0.3 % (0-2); EOSINOPHILS 2.2 % (0-7); HEMATOCRIT 42.1 % (36.0-48.0); HEMOGLOBIN 14.6 g/dL (12-16); IMMATURE GRANULOCYTES 0.2 % (0-5); MCH 30.5 pg (26.0-34.0); MCHC 34.7 g/dL (31.0-37.0); MCV 87.9 fL (80.0-100.0); MEAN PLATELET VOLUME 9.4 fL (7.4-10.4); MONOCYTES 5.7 % (2-11); NEUTROPHILS 53.6 % (40-80); PLATELET COUNT 240 10x3/uL (130-400); RBC 4.79 10x6/uL (4.00-5.40); RDW 12.5 % (11.5-14.5)
[2017-08-10 16:30] LABS: ALBUMIN 3.6 g/dL (3.4-5.0); ANION GAP 14.2 mmol/L (8-16); BILIRUBIN - TOTAL 0.4 mg/dL (0.2-1.3); CALCIUM 9.1 mg/dL (8.5-10.1); CARBON DIOXIDE 26.6 mmol/L (21.0-32.0); CREATININE - SERUM 1.1 mg/dL (0.6-1.3); POTASSIUM - SERUM 3.8 mmol/L (3.5-5.1); PROTEIN - SERUM 7.8 g/dL (6.4-8.2)
[2017-08-10 19:29] VITALS: BP 144/92
[2017-08-10 20:01] VITALS: BP 138/74
[2017-08-10 21:15] VITALS: BP 137/67
[2017-08-11] MEDS ORDERED: VALIUM10 MG PO (00:02)
[2017-08-11] MEDS ORDERED: LOSARTAN POTASS25 MG PO (00:07)
[2017-08-11] MEDS ORDERED: ZANTAC150 MG PO (00:08)
[2017-08-11] MEDS ORDERED: CYMBALTA60 MG PO (00:10)
[2017-08-11] MEDS ORDERED: ROBAXIN-750750 MG PO (00:11)
[2017-08-11] MEDS ORDERED: PRAVACHOL20 MG PO (00:12)
[2017-08-11 00:25] VITALS: BP 127/63; BMI 41.9
[2017-08-11 04:16] VITALS: BP 123/81
[2017-08-11 04:53] LABS: BASOPHILS 0.3 % (0-2); EOSINOPHILS 4.7 % (0-7); HEMATOCRIT 39.9 % (36.0-48.0); HEMOGLOBIN 13.4 g/dL (12-16); IMMATURE GRANULOCYTES 0.2 % (0-5); LYMPHOCYTES 46.1 % (15-50); MCH 29.8 pg (26.0-34.0); MCHC 33.6 g/dL (31.0-37.0); MCV 88.9 fL (80.0-100.0); MEAN PLATELET VOLUME 9.3 fL (7.4-10.4); MONOCYTES 7.7 % (2-11); PLATELET COUNT 209 10x3/uL (130-400); RBC 4.49 10x6/uL (4.00-5.40); RDW 12.7 % (11.5-14.5)
[2017-08-11 04:56] LABS: WBC 6.6 10x3/uL (4.8-10.8)
[2017-08-11 05:29] LABS: ALBUMIN 3.1 g/dL (3.4-5.0); ALKALINE PHOSPHATASE 53 U/L (46-116); ALT (SGPT) 25 U/L (10-68); BILIRUBIN - TOTAL 0.35 mg/dL (0.2-1.3); CALCIUM 8.8 mg/dL (8.5-10.1); CARBON DIOXIDE 28.9 mmol/L (21.0-32.0); CHLORIDE - SERUM 102 mmol/L (98-107); POTASSIUM - SERUM 3.8 mmol/L (3.5-5.1); SODIUM 137 mmol/L (136-145); UREA NITROGEN 10 mg/dL (7-18); eGFR NON AFRICAN AMERICAN 85 mL/min (90-120)
[2017-08-11 05:30] LABS: CALC OSMOLALITY 279 mosm/kg (275-300); CREATININE - SERUM 0.8 mg/dL (0.6-1.3); GLUCOSE 225 mg/dL (74-106)
[2017-08-11 09:17] VITALS: BP 133/72
[2017-08-11 12:38] VITALS: BP 128/84
[2017-08-11 16:58] VITALS: BP 149/95
[2017-08-11 21:23] VITALS: BP 132/84
[2017-08-12 04:40] LABS: BASOPHILS 0.3 % (0-2); EOSINOPHILS 4.1 % (0-7); HEMATOCRIT 39.9 % (36.0-48.0); HEMOGLOBIN 13.3 g/dL (12-16); IMMATURE GRANULOCYTES 0.5 % (0-5); LYMPHOCYTES 44.4 % (15-50); MCH 29.6 pg (26.0-34.0); MCHC 33.3 g/dL (31.0-37.0); MCV 88.9 fL (80.0-100.0); MEAN PLATELET VOLUME 9.5 fL (7.4-10.4); MONOCYTES 5.5 % (2-11); NEUTROPHILS 45.2 % (40-80); PLATELET COUNT 166 10x3/uL (130-400); RBC 4.49 10x6/uL (4.00-5.40); RDW 12.5 % (11.5-14.5); WBC 6.3 10x3/uL (4.8-10.8)
[2017-08-12 04:52] VITALS: BP 151/93
[2017-08-12 05:01] LABS: CALC OSMOLALITY 282 mosm/kg (275-300); CALCIUM 7.9 mg/dL (8.5-10.1); CARBON DIOXIDE 27.3 mmol/L (21.0-32.0); CHLORIDE - SERUM 105 mmol/L (98-107); CREATININE - SERUM 0.8 mg/dL (0.6-1.3); GLUCOSE 190 mg/dL (74-106); POTASSIUM - SERUM 3.7 mmol/L (3.5-5.1); SODIUM 140 mmol/L (136-145); UREA NITROGEN 9 mg/dL (7-18); eGFR NON AFRICAN AMERICAN 85 mL/min (90-120)
[2017-08-12 09:53] VITALS: BP 165/108
[2017-08-12 12:40] VITALS: BP 159/100
[2017-08-12 12:42] VITALS: Ht 165.1 cm; Wt 114.0 kg
[2017-08-12 16:45] VITALS: BP 140/86
[2017-08-12 21:15] VITALS: BP 153/99
[2017-08-12 23:56] VITALS: BP 151/87
[2017-08-13 04:26] VITALS: BP 155/71; BP 455/71
[2017-08-13 05:16] LABS: BASOPHILS 0.2 % (0-2); HEMATOCRIT 35.8 % (36.0-48.0); HEMOGLOBIN 12.2 g/dL (12-16); IMMATURE GRANULOCYTES 0.3 % (0-5); MCH 30.3 pg (26.0-34.0); MCHC 34.1 g/dL (31.0-37.0); MCV 89.1 fL (80.0-100.0); MEAN PLATELET VOLUME 9.7 fL (7.4-10.4); MONOCYTES 6.1 % (2-11); NEUTROPHILS 47.4 % (40-80); RBC 4.02 10x6/uL (4.00-5.40); RDW 12.5 % (11.5-14.5); WBC 6.4 10x3/uL (4.8-10.8)
[2017-08-13 05:24] LABS: PLATELET COUNT 216 10x3/uL (130-400)
[2017-08-13 06:39] LABS: ALBUMIN 2.8 g/dL (3.4-5.0); ALKALINE PHOSPHATASE 55 U/L (46-116); CALC OSMOLALITY 283 mosm/kg (275-300); CALCIUM 7.7 mg/dL (8.5-10.1); CARBON DIOXIDE 23.5 mmol/L (21.0-32.0); CHLORIDE - SERUM 105 mmol/L (98-107); CREATININE - SERUM 0.7 mg/dL (0.6-1.3); GLUCOSE 219 mg/dL (74-106); POTASSIUM - SERUM 3.9 mmol/L (3.5-5.1); PROTEIN - SERUM 6.4 g/dL (6.4-8.2); SODIUM 140 mmol/L (136-145); UREA NITROGEN 7 mg/dL (7-18); eGFR NON AFRICAN AMERICAN > 90 mL/min (90-120)
[2017-08-13 06:40] LABS: ALT (SGPT) 18 U/L (10-68)
[2017-08-13 08:37] VITALS: BP 129/93
[2017-08-13 12:45] VITALS: BP 145/100
[2017-08-13 16:43] VITALS: BP 149/101
[2017-08-13 19:51] VITALS: BP 162/97
[2017-08-14] VITALS (7 sets, daily range): BP systolic 144–170; BP diastolic 92–104
[2017-08-14 06:10] LABS: BASOPHILS 0.3 % (0-2); EOSINOPHILS 3.3 % (0-7); HEMATOCRIT 38.9 % (36.0-48.0); HEMOGLOBIN 12.6 g/dL (12-16); IMMATURE GRANULOCYTES 0.4 % (0-5); LYMPHOCYTES 40.7 % (15-50); MCH 29.2 pg (26.0-34.0); MCHC 32.4 g/dL (31.0-37.0); MEAN PLATELET VOLUME 9.5 fL (7.4-10.4); NEUTROPHILS 48.3 % (40-80); PLATELET COUNT 227 10x3/uL (130-400); RBC 4.32 10x6/uL (4.00-5.40); RDW 12.7 % (11.5-14.5); WBC 6.7 10x3/uL (4.8-10.8)
[2017-08-14 06:34] LABS: ALBUMIN 2.8 g/dL (3.4-5.0); ALKALINE PHOSPHATASE 57 U/L (46-116); ALT (SGPT) 19 U/L (10-68); BILIRUBIN - TOTAL 0.15 mg/dL (0.2-1.3); CARBON DIOXIDE 28.1 mmol/L (21.0-32.0); CHLORIDE - SERUM 107 mmol/L (98-107); CREATININE - SERUM 0.7 mg/dL (0.6-1.3); GLUCOSE 175 mg/dL (74-106); POTASSIUM - SERUM 3.5 mmol/L (3.5-5.1); PROTEIN - SERUM 6.6 g/dL (6.4-8.2); SODIUM 142 mmol/L (136-145); eGFR NON AFRICAN AMERICAN > 90 mL/min (90-120)
[2017-08-14 06:36] LABS: CALC OSMOLALITY 283 mosm/kg (275-300); UREA NITROGEN 4 mg/dL (7-18)
[2017-08-15 05:03] VITALS: BP 151/96
[2017-08-15 05:52] LABS: BASOPHILS 0.3 % (0-2); EOSINOPHILS 2.6 % (0-7); HEMATOCRIT 37.3 % (36.0-48.0); HEMOGLOBIN 12.3 g/dL (12-16); IMMATURE GRANULOCYTES 0.5 % (0-5); LYMPHOCYTES 40.6 % (15-50); MCH 29.4 pg (26.0-34.0); MCV 89.2 fL (80.0-100.0); MEAN PLATELET VOLUME 9.2 fL (7.4-10.4); MONOCYTES 5.6 % (2-11); NEUTROPHILS 50.4 % (40-80); PLATELET COUNT 227 10x3/uL (130-400); RBC 4.18 10x6/uL (4.00-5.40); RDW 12.7 % (11.5-14.5); WBC 6.4 10x3/uL (4.8-10.8)
[2017-08-15 06:12] LABS: INR 0.98 (0.85-1.17); PROTIME 12.6 SECONDS (11.6-15.0)
[2017-08-15 06:25] LABS: ALKALINE PHOSPHATASE 58 U/L (46-116); ALT (SGPT) 22 U/L (10-68); BILIRUBIN - TOTAL 0.17 mg/dL (0.2-1.3); CALCIUM 8.4 mg/dL (8.5-10.1); CARBON DIOXIDE 29.1 mmol/L (21.0-32.0); CHLORIDE - SERUM 108 mmol/L (98-107); CREATININE - SERUM 0.7 mg/dL (0.6-1.3); POTASSIUM - SERUM 3.6 mmol/L (3.5-5.1); PROTEIN - SERUM 6.7 g/dL (6.4-8.2); SODIUM 142 mmol/L (136-145); UREA NITROGEN 3 mg/dL (7-18); eGFR NON AFRICAN AMERICAN > 90 mL/min (90-120)
[2017-08-15 06:28] LABS: CALC OSMOLALITY 279 mosm/kg (275-300); GLUCOSE 94 mg/dL (74-106)
[2017-08-15 16:02] VITALS: BP 211/129
== END 2017-08-15 19:45 | disposition home or self-care (01) | DRG 394 ==
LOC: D.ER 14:53 → D.EDHOLD 20:32 → D.MS 20:32
PROVIDERS: Emergency Medicine; Family Medicine; Internal Medicine Gastroenterology
PROC: 0DCK8ZZ Extirpation of Matter from Ascending Colon, Via Natural or Artificial Opening Endoscopic (ICD-10-PCS; principal; 2017-08-15 07:00)
DX: T18.4XXA Foreign body in colon, initial encounter (principal); F32.3 Major depressive disorder, single episode, severe with psychotic features; Z68.41 Body mass index [BMI] 40.0-44.9, adult; F17.203 Nicotine dependence unspecified, with withdrawal; X83.8XXA Intentional self-harm by other specified means, initial encounter; I10 Essential (primary) hypertension; E11.65 Type 2 diabetes mellitus with hyperglycemia; Z79.4 Long term (current) use of insulin; F43.10 Post-traumatic stress disorder, unspecified; Z91.5 Personal history of self-harm; E66.9 Obesity, unspecified

== ENCOUNTER 2017-08-17 23:17 | Inpatient (IN) | payer MEDICARE ==
[~2017-08-17] VITALS: Ht 165.1 cm; Wt 113.2 kg
[~2017-08-17 23:17] MED LIST changes: +CYMBALTA60 MG PO; +LATUDA40 MG PO; +LOSARTAN POTASS25 MG PO; +NEURONTIN 300300 MG PO; +PRAVACHOL20 MG PO; +ROBAXIN-750750 MG PO; +VALIUM10 MG PO; +ZANTAC150 MG PO
[2017-08-18] VITALS (17 sets, daily range): BP systolic 119–163; BP diastolic 72–112; BMI 40.8
[2017-08-18 00:28] LABS: APPEARANCE CLOUDY (CLEAR); COLOR YELLOW (YELLOW); SPECIFIC GRAVITY 1.015 (1.005-1.020)
[2017-08-18 00:29] LABS: BILIRUBIN NEGATIVE (NEGATIVE); GLUCOSE 1000 mg/dL (NEGATIVE); HEMATOCRIT 35.2 % (36.0-48.0); HEMOGLOBIN 12.4 g/dL (12-16); KETONE NEGATIVE (NEGATIVE); LYMPHOCYTES 43.6 % (15-50); MCH 30.2 pg (26.0-34.0); MCHC 35.2 g/dL (31.0-37.0); MCV 85.6 fL (80.0-100.0); MEAN PLATELET VOLUME 8.7 fL (7.4-10.4); NEUTROPHILS 50.1 % (40-80); NITRITE NEGATIVE (NEGATIVE); PROTEIN NEGATIVE (NEGATIVE); RBC 4.11 10x6/uL (4.00-5.40); RDW 12.3 % (11.5-14.5); UROBILINOGEN NORMAL (NORMAL); WBC 7.3 10x3/uL (4.8-10.8)
[2017-08-18 00:30] LABS: PLATELET COUNT 278 10x3/uL (130-400)
[2017-08-18 00:31] LABS: HCG SERUM NEGATIVE (NEGATIVE)
[2017-08-18 00:32] LABS: KETONE - SERUM NEGATIVE (NEGATIVE)
[2017-08-18 00:33] LABS: UDS - AMPHET NEGATIVE QUAL (NEGATIVE); UDS - BARB NEGATIVE QUAL (NEGATIVE); UDS - BENZO POSITIVE QUAL (NEGATIVE); UDS - COCAINE POSITIVE QUAL (NEGATIVE); UDS - OPIATE NEGATIVE QUAL (NEGATIVE); UDS - PCP NEGATIVE QUAL (NEGATIVE); UDS - THC POSITIVE QUAL (NEGATIVE)
[2017-08-18 00:40] LABS: ALKALINE PHOSPHATASE 57 U/L (46-116); ALT (SGPT) 18 U/L (10-68); BILIRUBIN - TOTAL 0.22 mg/dL (0.2-1.3); CALC OSMOLALITY 283 mosm/kg (275-300); CALCIUM 8.5 mg/dL (8.5-10.1); CARBON DIOXIDE 28.8 mmol/L (21.0-32.0); CHLORIDE - SERUM 102 mmol/L (98-107); CREATININE - SERUM 0.9 mg/dL (0.6-1.3); POTASSIUM - SERUM 3.3 mmol/L (3.5-5.1); PROTEIN - SERUM 6.9 g/dL (6.4-8.2); SODIUM 137 mmol/L (136-145); UREA NITROGEN 6 mg/dL (7-18); eGFR NON AFRICAN AMERICAN 74 mL/min (90-120)
[2017-08-18 00:43] LABS: GLUCOSE 307 mg/dL (74-106)
[2017-08-18 01:45] LABS: INR 0.95 (0.85-1.17); PROTIME 12.3 SECONDS (11.6-15.0)
[2017-08-18] MEDS ORDERED: THORAZINE25 MG PO (20:44)
[2017-08-19] VITALS (22 sets, daily range): BP systolic 128–179; BP diastolic 87–122; Ht 165.1 cm; Wt 113.2 kg
[2017-08-19 04:54] LABS: BASOPHILS 0.3 % (0-2); EOSINOPHILS 4.4 % (0-7); HEMATOCRIT 37.3 % (36.0-48.0); HEMOGLOBIN 12.5 g/dL (12-16); IMMATURE GRANULOCYTES 0.3 % (0-5); LYMPHOCYTES 34.6 % (15-50); MCH 29.6 pg (26.0-34.0); MCHC 33.5 g/dL (31.0-37.0); MCV 88.4 fL (80.0-100.0); MEAN PLATELET VOLUME 9.3 fL (7.4-10.4); MONOCYTES 6.3 % (2-11); NEUTROPHILS 54.1 % (40-80); PLATELET COUNT 252 10x3/uL (130-400); RBC 4.22 10x6/uL (4.00-5.40); RDW 12.8 % (11.5-14.5); WBC 7.3 10x3/uL (4.8-10.8)
[2017-08-19 05:14] LABS: ANION GAP 10.8 mmol/L (8-16); CALCIUM 8.2 mg/dL (8.5-10.1); CARBON DIOXIDE 31.7 mmol/L (21.0-32.0); CREATININE - SERUM 0.9 mg/dL (0.6-1.3); POTASSIUM - SERUM 3.5 mmol/L (3.5-5.1)
[2017-08-20] VITALS (23 sets, daily range): BP systolic 105–151; BP diastolic 65–112
[2017-08-20 04:51] LABS: ANION GAP 12.5 mmol/L (8-16); CALCIUM 8.2 mg/dL (8.5-10.1); CARBON DIOXIDE 28.8 mmol/L (21.0-32.0); CREATININE - SERUM 0.9 mg/dL (0.6-1.3); POTASSIUM - SERUM 3.3 mmol/L (3.5-5.1)
[2017-08-20 04:55] LABS: BASOPHILS 0.1 % (0-2); EOSINOPHILS 4.5 % (0-7); HEMATOCRIT 36.5 % (36.0-48.0); HEMOGLOBIN 12.2 g/dL (12-16); IMMATURE GRANULOCYTES 0.3 % (0-5); LYMPHOCYTES 44.9 % (15-50); MCH 29.5 pg (26.0-34.0); MCHC 33.4 g/dL (31.0-37.0); MCV 88.4 fL (80.0-100.0); MEAN PLATELET VOLUME 9.6 fL (7.4-10.4); MONOCYTES 5.3 % (2-11); NEUTROPHILS 44.9 % (40-80); PLATELET COUNT 232 10x3/uL (130-400); RBC 4.13 10x6/uL (4.00-5.40); WBC 6.8 10x3/uL (4.8-10.8)
[2017-08-21] VITALS (18 sets, daily range): BP systolic 115–136; BP diastolic 82–110
[2017-08-21 04:01] LABS: BASOPHILS 0.3 % (0-2); EOSINOPHILS 4.4 % (0-7); HEMATOCRIT 36.6 % (36.0-48.0); HEMOGLOBIN 12.2 g/dL (12-16); IMMATURE GRANULOCYTES 0.1 % (0-5); LYMPHOCYTES 41.2 % (15-50); MCH 29.5 pg (26.0-34.0); MCHC 33.3 g/dL (31.0-37.0); MCV 88.6 fL (80.0-100.0); MEAN PLATELET VOLUME 9.1 fL (7.4-10.4); MONOCYTES 5.7 % (2-11); NEUTROPHILS 48.3 % (40-80); PLATELET COUNT 246 10x3/uL (130-400); RBC 4.13 10x6/uL (4.00-5.40); RDW 12.9 % (11.5-14.5); WBC 7.4 10x3/uL (4.8-10.8)
[2017-08-21 04:14] LABS: ANION GAP 8.6 mmol/L (8-16); CALCIUM 8.8 mg/dL (8.5-10.1); CARBON DIOXIDE 31.8 mmol/L (21.0-32.0); CREATININE - SERUM 0.9 mg/dL (0.6-1.3)
[2017-08-21 04:15] LABS: POTASSIUM - SERUM 3.4 mmol/L (3.5-5.1)
[2017-08-22] VITALS (11 sets, daily range): BP systolic 104–149; BP diastolic 75–110
[2017-08-23] VITALS (13 sets, daily range): BP systolic 90–127; BP diastolic 58–91
[2017-08-23 03:43] LABS: BASOPHILS 0.2 % (0-2); EOSINOPHILS 4.3 % (0-7); HEMATOCRIT 41.8 % (36.0-48.0); HEMOGLOBIN 13.7 g/dL (12-16); IMMATURE GRANULOCYTES 0.3 % (0-5); LYMPHOCYTES 39.6 % (15-50); MCH 29.5 pg (26.0-34.0); MCHC 32.8 g/dL (31.0-37.0); MCV 89.9 fL (80.0-100.0); MEAN PLATELET VOLUME 9.6 fL (7.4-10.4); MONOCYTES 5.5 % (2-11); NEUTROPHILS 50.1 % (40-80); PLATELET COUNT 286 10x3/uL (130-400); RBC 4.65 10x6/uL (4.00-5.40); RDW 12.9 % (11.5-14.5); WBC 8.9 10x3/uL (4.8-10.8)
[2017-08-23 03:52] LABS: ANION GAP 11.5 mmol/L (8-16); CARBON DIOXIDE 30.5 mmol/L (21.0-32.0); CREATININE - SERUM 0.9 mg/dL (0.6-1.3)
[2017-08-24 03:00] VITALS: BP 107/71
[2017-08-24 08:00] VITALS: BP 94/78
[2017-08-24 12:01] VITALS: BP 115/83
[2017-08-24 15:07] VITALS: BP 122/85
[2017-08-24 19:00] VITALS: BP 112/75
[2017-08-24 23:00] VITALS: BP 112/75
[2017-08-25] VITALS (8 sets, daily range): BP systolic 89–125; BP diastolic 57–84
[2017-08-25 03:15] LABS: BASOPHILS 0.2 % (0-2); EOSINOPHILS 4.5 % (0-7); HEMATOCRIT 44.4 % (36.0-48.0); IMMATURE GRANULOCYTES 0.4 % (0-5); LYMPHOCYTES 44.8 % (15-50); MCH 30.4 pg (26.0-34.0); MCHC 33.8 g/dL (31.0-37.0); MCV 89.9 fL (80.0-100.0); MEAN PLATELET VOLUME 9.5 fL (7.4-10.4); MONOCYTES 5.5 % (2-11); NEUTROPHILS 44.6 % (40-80); RBC 4.94 10x6/uL (4.00-5.40); WBC 9.4 10x3/uL (4.8-10.8)
[2017-08-25 03:16] LABS: PLATELET COUNT 357 10x3/uL (130-400)
[2017-08-25 03:20] LABS: ANION GAP 9.7 mmol/L (8-16); CALCIUM 9.3 mg/dL (8.5-10.1); CARBON DIOXIDE 29.5 mmol/L (21.0-32.0); CREATININE - SERUM 1.1 mg/dL (0.6-1.3); POTASSIUM - SERUM 4.2 mmol/L (3.5-5.1)
[2017-08-26 03:00] VITALS: BP 96/78
[2017-08-26 07:00] VITALS: BP 104/79
[2017-08-26 11:00] VITALS: BP 121/77
[2017-08-26 15:00] VITALS: BP 123/97
== END 2017-08-26 16:23 | disposition short-term general hospital (02) | DRG 394 ==
LOC: D.ER 23:17 → D.EDHOLD 08-18 02:37 → D.MS 08-18 02:37 → D.ICU 08-18 02:37 → D.MS 08-18 15:16 → D.ICU 08-18 18:15
PROVIDERS: Family Medicine; Internal Medicine Gastroenterology
PROC: 0DC58ZZ Extirpation of Matter from Esophagus, Via Natural or Artificial Opening Endoscopic (ICD-10-PCS; 2017-08-18)
PROC: 0DB68ZX Excision of Stomach, Via Natural or Artificial Opening Endoscopic, Diagnostic (ICD-10-PCS; principal; 2017-08-18 09:27)
PROC: 0DCK8ZZ Extirpation of Matter from Ascending Colon, Via Natural or Artificial Opening Endoscopic (ICD-10-PCS; 2017-08-25)
DX: T18.198A Other foreign object in esophagus causing other injury, initial encounter (principal); F17.203 Nicotine dependence unspecified, with withdrawal; F32.9 Major depressive disorder, single episode, unspecified; E87.6 Hypokalemia; F43.12 Post-traumatic stress disorder, chronic; G47.33 Obstructive sleep apnea (adult) (pediatric); F60.3 Borderline personality disorder; F19.10 Other psychoactive substance abuse, uncomplicated; J45.909 Unspecified asthma, uncomplicated; E03.9 Hypothyroidism, unspecified; E11.9 Type 2 diabetes mellitus without complications; I10 Essential (primary) hypertension; Z91.19 Patient's noncompliance with other medical treatment and regimen; G80.9 Cerebral palsy, unspecified; F41.8 Other specified anxiety disorders; K27.9 Peptic ulcer, site unspecified, unspecified as acute or chronic, without hemorrhage or perforation; K21.0 Gastro-esophageal reflux disease with esophagitis

== ENCOUNTER 2017-09-07 04:16 | Emergency (ER) | payer MEDICARE ==
[~2017-09-07] VITALS: Ht 165.1 cm; Wt 111.4 kg
[2017-09-07 04:27] VITALS: Ht 165.1 cm; Wt 111.4 kg
[2017-09-07] MEDS ORDERED: CELEXA40 MG PO (04:42)
[2017-09-07] MEDS ORDERED: MOBIC7.5 MG PO (04:44)
[2017-09-07] MEDS ORDERED: TOPAMAX25 MG PO (04:45)
[2017-09-07] MEDS ORDERED: ABILIFY10 MG PO (04:45)
[2017-09-07 06:44] VITALS: BP 145/89
== END 2017-09-07 06:47 | disposition home or self-care (01) ==
LOC: D.ER 04:16
DX: S00.83XA Contusion of other part of head, initial encounter (principal); Y04.2XXA Assault by strike against or bumped into by another person, initial encounter; Y93.89 Activity, other specified; Y92.810 Car as the place of occurrence of the external cause; S06.0X9A Concussion with loss of consciousness of unspecified duration, initial encounter; M54.5 Low back pain; E11.9 Type 2 diabetes mellitus without complications; I10 Essential (primary) hypertension; F17.200 Nicotine dependence, unspecified, uncomplicated

== ENCOUNTER 2017-11-17 22:17 | Emergency (ER) | payer MEDICARE ==
[~2017-11-17] VITALS: Ht 165.1 cm; Wt 111.4 kg
[~2017-11-17 22:17] MED LIST changes: +ABILIFY10 MG PO; +CELEXA40 MG PO; +MOBIC7.5 MG PO
[2017-11-17 22:26] VITALS: BP 149/93; Ht 165.1 cm; Wt 111.4 kg
[2017-11-17] MEDS ORDERED: KLONOPIN1 MG PO (22:31)
[2017-11-17] MEDS ORDERED: REMERON30 MG PO (22:34)
[2017-11-17] MEDS ORDERED: EFFEXOR XR75 MG PO (22:34)
[2017-11-17] MEDS ORDERED: HUMALOG 30100 UNITS/ SC (22:34)
[2017-11-17] MEDS ORDERED: THORAZINE50 MG PO (22:35)
[2017-11-17 23:05] LABS: APPEARANCE CLEAR (CLEAR); BILIRUBIN NEGATIVE (NEGATIVE); COLOR COLORLESS (YELLOW); GLUCOSE 1000 mg/dL (NEGATIVE); KETONE NEGATIVE (NEGATIVE); NITRITE NEGATIVE (NEGATIVE); PROTEIN NEGATIVE (NEGATIVE); UROBILINOGEN NORMAL (NORMAL)
[2017-11-17 23:19] LABS: UDS - AMPHET NEGATIVE QUAL (NEGATIVE); UDS - BARB NEGATIVE QUAL (NEGATIVE); UDS - BENZO POSITIVE QUAL (NEGATIVE); UDS - COCAINE POSITIVE QUAL (NEGATIVE); UDS - OPIATE NEGATIVE QUAL (NEGATIVE); UDS - PCP NEGATIVE QUAL (NEGATIVE); UDS - THC NEGATIVE QUAL (NEGATIVE)
[2017-11-17 23:21] LABS: BASOPHILS 0.3 % (0-2); HEMATOCRIT 40.8 % (36.0-48.0); HEMOGLOBIN 14.7 g/dL (12-16); IMMATURE GRANULOCYTES 0.4 % (0-5); LYMPHOCYTES 36.6 % (15-50); MCH 30.6 pg (26.0-34.0); MCV 84.8 fL (80.0-100.0); MONOCYTES 4.9 % (2-11); NEUTROPHILS 55.8 % (40-80); PLATELET COUNT 299 10x3/uL (130-400); RBC 4.81 10x6/uL (4.00-5.40); RDW 12.5 % (11.5-14.5); WBC 7.6 10x3/uL (4.8-10.8)
[2017-11-17 23:37] LABS: ALBUMIN 3.5 g/dL (3.4-5.0); ALKALINE PHOSPHATASE 76 U/L (46-116); ALT (SGPT) 16 U/L (10-68); BILIRUBIN - TOTAL 0.22 mg/dL (0.2-1.3); CARBON DIOXIDE 21.1 mmol/L (21.0-32.0); CHLORIDE - SERUM 91 mmol/L (98-107); CREATININE - SERUM 1.4 mg/dL (0.6-1.3); POTASSIUM - SERUM 3.9 mmol/L (3.5-5.1); PROTEIN - SERUM 8.2 g/dL (6.4-8.2); SODIUM 127 mmol/L (136-145); UREA NITROGEN 8 mg/dL (7-18); eGFR NON AFRICAN AMERICAN 44 mL/min (90-120)
[2017-11-17 23:39] LABS: CALC OSMOLALITY 290 mosm/kg (275-300); GLUCOSE 775 mg/dL (74-106)
[2017-11-17 23:47] LABS: C-REACTIVE PROTEIN 1.1 mg/dL (0.0-0.9); CREATINE KINASE 46 UL (21-215); LIPASE 331 U/L (73-393)
[2017-11-17 23:49] LABS: TROPONIN-I < 0.017 ng/mL (0.000-0.060)
== END 2017-11-18 00:14 | disposition left against medical advice (07) ==
LOC: D.ER 22:17
PROVIDERS: Family Medicine
DX: R10.9 Unspecified abdominal pain (principal); R11.2 Nausea with vomiting, unspecified; R33.9 Retention of urine, unspecified; E11.9 Type 2 diabetes mellitus without complications; I10 Essential (primary) hypertension; K21.9 Gastro-esophageal reflux disease without esophagitis; Z85.41 Personal history of malignant neoplasm of cervix uteri

== ENCOUNTER 2017-11-18 04:59 | Emergency (ER) | payer MEDICARE ==
[~2017-11-18] VITALS: Ht 165.1 cm; Wt 111.1 kg
[~2017-11-18 04:59] MED LIST changes: +EFFEXOR XR75 MG PO; +HUMALOG 30100 UNITS/ SC; +THORAZINE50 MG PO
[2017-11-18 05:05] VITALS: Ht 165.1 cm; Wt 111.1 kg
[2017-11-18 05:44] LABS: KETONE - SERUM NEGATIVE (NEGATIVE)
[2017-11-18 05:53] LABS: ALBUMIN 3.4 g/dL (3.4-5.0); ALKALINE PHOSPHATASE 77 U/L (46-116); ALT (SGPT) 17 U/L (10-68); BILIRUBIN - TOTAL 0.21 mg/dL (0.2-1.3); CHLORIDE - SERUM 93 mmol/L (98-107); CREATININE - SERUM 1.2 mg/dL (0.6-1.3); POTASSIUM - SERUM 3.7 mmol/L (3.5-5.1); PROTEIN - SERUM 7.9 g/dL (6.4-8.2); SODIUM 129 mmol/L (136-145); UREA NITROGEN 7 mg/dL (7-18); eGFR NON AFRICAN AMERICAN 53 mL/min (90-120)
[2017-11-18 05:54] LABS: CALC OSMOLALITY 294 mosm/kg (275-300); GLUCOSE 778 mg/dL (74-106)
[2017-11-18 08:02] VITALS: BP 150/82
== END 2017-11-18 09:12 | disposition home or self-care (01) ==
LOC: D.ER 04:59
PROVIDERS: Family Medicine
DX: E11.65 Type 2 diabetes mellitus with hyperglycemia (principal); M54.5 Low back pain; F19.10 Other psychoactive substance abuse, uncomplicated; G40.909 Epilepsy, unspecified, not intractable, without status epilepticus; I10 Essential (primary) hypertension; K21.9 Gastro-esophageal reflux disease without esophagitis; Z85.41 Personal history of malignant neoplasm of cervix uteri

== ENCOUNTER 2017-12-20 04:50 | Emergency (ER) | payer MEDICARE ==
[~2017-12-20] VITALS: Ht 165.1 cm; Wt 90.9 kg
[2017-12-20 04:53] VITALS: BP 142/104; Ht 165.1 cm; Wt 90.9 kg
== END 2017-12-20 06:06 | disposition left against medical advice (07) ==
LOC: D.ER 04:50
DX: J02.9 Acute pharyngitis, unspecified (principal); G40.909 Epilepsy, unspecified, not intractable, without status epilepticus; E11.9 Type 2 diabetes mellitus without complications; I10 Essential (primary) hypertension; K21.9 Gastro-esophageal reflux disease without esophagitis; Z85.41 Personal history of malignant neoplasm of cervix uteri; F17.200 Nicotine dependence, unspecified, uncomplicated

== ENCOUNTER 2018-01-25 23:48 | Emergency (ER) | payer MEDICARE ==
[~2018-01-25] VITALS: Ht 165.1 cm; Wt 111.4 kg
[2018-01-25 23:50] VITALS: BP 131/62; Ht 165.1 cm; Wt 111.4 kg
[2018-01-26 00:08] LABS: BASOPHILS 0.2 % (0-2); EOSINOPHILS 2.9 % (0-7); HEMATOCRIT 40.6 % (36.0-48.0); IMMATURE GRANULOCYTES 0.2 % (0-5); LYMPHOCYTES 37.4 % (15-50); MCH 30.4 pg (26.0-34.0); MCHC 34.5 g/dL (31.0-37.0); MCV 88.3 fL (80.0-100.0); MEAN PLATELET VOLUME 9.5 fL (7.4-10.4); MONOCYTES 5.8 % (2-11); NEUTROPHILS 53.5 % (40-80); PLATELET COUNT 288 10x3/uL (130-400); RDW 12.9 % (11.5-14.5); WBC 9.3 10x3/uL (4.8-10.8)
[2018-01-26 00:26] LABS: ALBUMIN 3.3 g/dL (3.4-5.0); ALKALINE PHOSPHATASE 60 U/L (46-116); ALT (SGPT) 18 U/L (10-68); BILIRUBIN - TOTAL 0.15 mg/dL (0.2-1.3); CALC OSMOLALITY 287 mosm/kg (275-300); CARBON DIOXIDE 21.3 mmol/L (21.0-32.0); CHLORIDE - SERUM 106 mmol/L (98-107); CREATININE - SERUM 1.1 mg/dL (0.6-1.3); GLUCOSE 227 mg/dL (74-106); POTASSIUM - SERUM 3.8 mmol/L (3.5-5.1); PROTEIN - SERUM 7.5 g/dL (6.4-8.2); SODIUM 142 mmol/L (136-145); UREA NITROGEN 7 mg/dL (7-18); eGFR NON AFRICAN AMERICAN 58 mL/min (90-120)
[2018-01-26 00:31] LABS: AMYLASE - SERUM 35 U/L (25-115); LIPASE 215 U/L (73-393); TROPONIN-I < 0.017 ng/mL (0.000-0.060)
== END 2018-01-26 00:35 | disposition left against medical advice (07) ==
LOC: D.ER 23:48
PROVIDERS: Emergency Medicine
DX: R10.30 Lower abdominal pain, unspecified (principal)

== ENCOUNTER 2018-03-27 14:41 | Inpatient (IN) | payer MEDICARE ==
[~2018-03-27] VITALS: Ht 165.1 cm; Wt 115.7 kg
[2018-03-27] VITALS (7 sets, daily range): BP systolic 93–133; BP diastolic 62–86; BMI 41.9
[2018-03-27] MEDS ORDERED: RITALIN10 MG PO (14:55)
[2018-03-27] MEDS ORDERED: MINIPRESS2 MG PO (14:56)
[2018-03-27] MEDS ORDERED: wellbutrin (14:56)
[2018-03-27] MEDS ORDERED: [UNRECOGNIZED DRUG - REMARK] (14:57)
[2018-03-27 16:14] LABS: BASOPHILS 0.3 % (0-2); EOSINOPHILS 1.5 % (0-7); HEMATOCRIT 40.7 % (36.0-48.0); HEMOGLOBIN 14.3 g/dL (12-16); IMMATURE GRANULOCYTES 0.2 % (0-5); LYMPHOCYTES 38.9 % (15-50); MCH 30.4 pg (26.0-34.0); MCHC 35.1 g/dL (31.0-37.0); MCV 86.4 fL (80.0-100.0); MEAN PLATELET VOLUME 9.5 fL (7.4-10.4); NEUTROPHILS 51.1 % (40-80); RBC 4.71 10x6/uL (4.00-5.40); RDW 12.4 % (11.5-14.5); WBC 6.6 10x3/uL (4.8-10.8)
[2018-03-27 16:18] LABS: PLATELET COUNT 228 10x3/uL (130-400)
[2018-03-27 16:29] LABS: ALBUMIN 3.5 g/dL (3.4-5.0); ANION GAP 19.2 mmol/L (8-16); BILIRUBIN - TOTAL 0.4 mg/dL (0.2-1.3); CALCIUM 9.2 mg/dL (8.5-10.1); CREATININE - SERUM 1.1 mg/dL (0.6-1.3); MAGNESIUM - SERUM 1.6 mg/dL (1.8-2.4); POTASSIUM - SERUM 3.2 mmol/L (3.5-5.1); PROTEIN - SERUM 7.5 g/dL (6.4-8.2)
[2018-03-27 17:57] LABS: UDS - AMPHET NEGATIVE QUAL (NEGATIVE); UDS - BARB NEGATIVE QUAL (NEGATIVE); UDS - BENZO NEGATIVE QUAL (NEGATIVE); UDS - COCAINE POSITIVE QUAL (NEGATIVE); UDS - OPIATE NEGATIVE QUAL (NEGATIVE); UDS - PCP NEGATIVE QUAL (NEGATIVE); UDS - THC NEGATIVE QUAL (NEGATIVE)
[2018-03-27 17:59] LABS: APPEARANCE CLEAR (CLEAR); BILIRUBIN NEGATIVE (NEGATIVE); COLOR YELLOW (YELLOW); GLUCOSE 1000 mg/dL (NEGATIVE); KETONE NEGATIVE (NEGATIVE); NITRITE NEGATIVE (NEGATIVE); PROTEIN NEGATIVE (NEGATIVE); SPECIFIC GRAVITY 1.015 (1.005-1.020); UROBILINOGEN NORMAL (NORMAL)
[2018-03-28] VITALS (24 sets, daily range): BP systolic 95–154; BP diastolic 62–102; Ht 165.1 cm; Wt 115.7 kg
[2018-03-28 03:55] LABS: BASOPHILS 0.1 % (0-2); EOSINOPHILS 2.3 % (0-7); HEMATOCRIT 38.1 % (36.0-48.0); HEMOGLOBIN 12.9 g/dL (12-16); IMMATURE GRANULOCYTES 0.1 % (0-5); LYMPHOCYTES 35.5 % (15-50); MCH 29.7 pg (26.0-34.0); MCHC 33.9 g/dL (31.0-37.0); MCV 87.8 fL (80.0-100.0); MEAN PLATELET VOLUME 9.7 fL (7.4-10.4); MONOCYTES 8.2 % (2-11); NEUTROPHILS 53.8 % (40-80); PLATELET COUNT 225 10x3/uL (130-400); RBC 4.34 10x6/uL (4.00-5.40); RDW 12.6 % (11.5-14.5); WBC 7.9 10x3/uL (4.8-10.8)
[2018-03-28 04:12] LABS: ALBUMIN 2.9 g/dL (3.4-5.0); ANION GAP 14.9 mmol/L (8-16); BILIRUBIN - TOTAL 0.31 mg/dL (0.2-1.3); CALCIUM 9.3 mg/dL (8.5-10.1); CARBON DIOXIDE 23.5 mmol/L (21.0-32.0); CREATININE - SERUM 1.1 mg/dL (0.6-1.3); POTASSIUM - SERUM 3.4 mmol/L (3.5-5.1); PROTEIN - SERUM 6.6 g/dL (6.4-8.2)
[2018-03-29] VITALS (24 sets, daily range): BP systolic 109–153; BP diastolic 69–107
[2018-03-30] VITALS (9 sets, daily range): BP systolic 128–161; BP diastolic 80–109
[2018-03-30 03:48] LABS: BASOPHILS 0.4 % (0-2); EOSINOPHILS 5.4 % (0-7); HEMOGLOBIN 13.4 g/dL (12-16); IMMATURE GRANULOCYTES 0.3 % (0-5); LYMPHOCYTES 34.3 % (15-50); MCH 30.2 pg (26.0-34.0); MCHC 34.4 g/dL (31.0-37.0); MCV 87.8 fL (80.0-100.0); MEAN PLATELET VOLUME 9.5 fL (7.4-10.4); NEUTROPHILS 50.6 % (40-80); PLATELET COUNT 231 10x3/uL (130-400); RBC 4.44 10x6/uL (4.00-5.40); RDW 12.3 % (11.5-14.5); WBC 7.2 10x3/uL (4.8-10.8)
[2018-03-30 04:24] LABS: ALBUMIN 2.6 g/dL (3.4-5.0); BILIRUBIN - TOTAL 0.37 mg/dL (0.2-1.3); CALCIUM 8.3 mg/dL (8.5-10.1); CARBON DIOXIDE 24.5 mmol/L (21.0-32.0); CREATININE - SERUM 1.1 mg/dL (0.6-1.3); POTASSIUM - SERUM 3.5 mmol/L (3.5-5.1); PROTEIN - SERUM 6.6 g/dL (6.4-8.2)
[2018-03-31] VITALS (9 sets, daily range): BP systolic 92–153; BP diastolic 62–106
[2018-04-01] VITALS (13 sets, daily range): BP systolic 102–169; BP diastolic 69–104
--- NOTE | 2018-04-01 12:02 | CN ---
PATIENT NAME:JANN RUBALCAVA MEDICAL RECORD: [id number] : 79 LOCATION:[id number] ADMIT DATE: 03/28/18 ACCOUNT: [id number] CONSULTING PHYSICIAN: REGINA RAMIREZ MD REFERRING PHYSICIAN: MAVIS RICARDO MD DATE OF CONSULTATION: 03/31/2018 Psychiatric Consultation IDENTIFYING DATA: The patient is 42 years old and she is admitted to the hospital secondary to an overdose. CHIEF COMPLAINT: Depression. HISTORY OF PRESENT ILLNESS: The patient had a fight with her mother. She took an overdose of Vistaril, Thorazine, and losartan. She presented to the Emergency Room, was briefly intubated, and now continues to report ongoing depressive symptoms and is evasive about suicidal thoughts. PAST MEDICAL HISTORY: Significant for morbid obesity, diabetes, hypothyroidism and a seizure disorder. PAST PSYCHIATRIC HISTORY: Significant for longstanding psychiatric problems with numerous inpatient treatments. MENTAL STATUS EXAMINATION: The patient is awake, alert and oriented to person, place and somewhat to time and situation. Her mood is depressed. Her affect is constricted. Thought processes are circumstantial. Memory, concentration, and abstraction abilities are at least moderately impaired. She endorses vague thoughts of self-harm. ASSESSMENT: 1. Major depression. 2. Status post overdose. PLAN: The patient will be referred for inpatient psychiatric care once medically stable. She is agreeable to this plan. She tells me she does not want me to make any changes in her psychoactive medications, which I will not. TRANSINT:[id number] Voice Confirmation ID: [id number] DOCUMENT ID: [id number] REGINA RAMIREZ MD at 1202 CC: [id number] DICTATION DATE: 03/31/18 1734 TURNER AND FORMER AUTOMATIC: 04/01/18 0149 ADM IN [facility] [id number] [place] [address]
--- NOTE | 2018-04-01 19:47 | MORECARE ---
CASE MANAGEMENT DISCHARGE SUMMARY PATIENT: JANN RUBALCAVA UNIT: [id number] ADM DATE: 03/28/18 AGE: 42 : 77 SEX: F ROOM/BED: D.2305 AUTHOR: GONZALEZ CALHOUN PHYSICIAN: REFERRING PHYSICIAN: MAVIS RICARDO MD DATE OF SERVICE: 04/01/18 Discharge Plan Patient Name: JANN RUBALCAVA [facility] : 1975 Planned Disposition: Psych facility Anticipated Discharge Date: Discharge Date: 04/01/2018 Expected LOS: Initial Reviewer: [email or web address] Initial Review Date: 04/01/2018 Generated: 04/01/18 8:47 pm Patient Name: JANN RUBALCAVA Page [id number] at 1947 All edits/amendments must be made on the electronic document DICTATION DATE: 04/01/181946 DEPUTY CONTROLLER: NILA 04/01/181946 RPT#: [id number] DC DATE:04/01/18 STATUS: DIS IN [facility] [address] [place] [address] END OF REPORT
--- NOTE | 2018-04-01 19:54 | MORECARE ---
CASE MANAGEMENT DISCHARGE SUMMARY PATIENT: JANN RUBALCAVA UNIT: [id number] ADM DATE: 03/28/18 AGE: 42 : 77 SEX: F ROOM/BED: D.2305 AUTHOR: GONZALEZ CALHOUN PHYSICIAN: REFERRING PHYSICIAN: MAVIS RICARDO MD DATE OF SERVICE: 04/01/18 Discharge Plan Patient Name: JANN RUBALCAVA [facility] [facility] 1975 Planned Disposition: Psych facility Anticipated Discharge Date: Discharge Date: 04/01/2018 Expected LOS: Initial Reviewer: [email or web address] Initial Review Date: 04/01/2018 Generated: 04/01/18 8:53 pm Comments DCP- Discharge Planning Updated by [email or web address]: Brooklyn Agarwal on 04/01/18 6:[address] Patient Name: JANN RUBALCAVA Admission Status: ER Accout number: [id number] Admission Date: 03-28-2018 : 1975 Admission Diagnosis:POISN BY SLCTV SEROTON/NOREPINEPH REUP INHIBTR,SLF-HRM, Attending: MAVIS RICARDO Current LOS: 4 Anticipated DC Date: Planned Disposition: Psych facility Primary Insurance: MEDICARE A & B Discharge Planning Comments: CM MET WITH PATIENT AT BEDSIDE. PATIENT IS VOLUNTARY FOR ADMISSION INTO INPATIENT PSYCHIATRIC FACILITY. PATIENT INFORMATION SENT TO TRANSFER CENTER FOR PLACEMENT. CM NOTIFIED THAT PATIENT WAS ACCEPTED TO [facility] [place] [address]. NURSING CALLED REPORT AND AMBULANCE TO TRANSFER PATIENT TO FACILITY. IMM EXPLAINED AND SERVED 04/01/18 @[facility]. CM WILL CONTINUE TO FOLLOW AND ASSIST NEEDED WITH DISCHARGE PLANNING / NEEDS. Cardroom Hand: Brooklyn Agarwal Last DP export: 04/01/18 6:47 p Patient Name: JANN RUBALCAVA Page [phone] at 1954 All edits/amendments must be made on the electronic document DICTATION DATE: 04/01/181952 FEED PREPARATION OPERATOR: NILA 04/01/181952 RPT#: [id number] DC DATE:04/01/18 STATUS: DIS IN [facility] [address] [place] [address] END OF REPORT
--- NOTE | 2018-04-01 20:00 | MORECARE ---
CASE MANAGEMENT DISCHARGE SUMMARY PATIENT: JANN RUBALCAVA UNIT: [id number] ADM DATE: 03/28/18 AGE: 42 : 77 SEX: F ROOM/BED: D.2305 AUTHOR: GONZALEZ CALHOUN PHYSICIAN: REFERRING PHYSICIAN: MAVIS RICARDO MD DATE OF SERVICE: 04/01/18 Discharge Plan Patient Name: JANN RUBALCAVA Facility: [facility]:[place] : 1975 Planned Disposition: Psych facility Anticipated Discharge Date: Discharge Date: 04/01/2018 Expected LOS: Initial Reviewer: [email or web address] Initial Review Date: 04/01/2018 Generated: 04/01/18 9:00 pm Comments DCP- Discharge Planning Updated by [email or web address]: Brooklyn Agarwal on 04/01/18 6:[address] Patient Name: JANN RUBALCAVA Admission Status: ER Accout number: [id number] Admission Date: 03-28-2018 : 1975 Admission Diagnosis:POISN BY SLCTV SEROTON/NOREPINEPH REUP INHIBTR,SLF-HRM, Attending: MAVIS RICARDO Current LOS: 4 Anticipated DC Date: Planned Disposition: Psych facility Primary Insurance: MEDICARE A & B Discharge Planning Comments: CM MET WITH PATIENT AT BEDSIDE. PATIENT IS VOLUNTARY FOR ADMISSION INTO INPATIENT PSYCHIATRIC FACILITY. PATIENT INFORMATION SENT TO TRANSFER CENTER FOR PLACEMENT. CM NOTIFIED THAT PATIENT WAS ACCEPTED TO [facility] IN [place]. NURSING CALLED REPORT AND AMBULANCE TO TRANSFER PATIENT TO FACILITY. IMM EXPLAINED AND SERVED 04/01/18 @[facility]. CM WILL CONTINUE TO FOLLOW AND ASSIST NEEDED WITH DISCHARGE PLANNING / NEEDS. Ethylbenzene Converter Operator: Brooklyn Agarwal Coverage Notice Reviewer: [id number] - Brooklyn Agarwal Notice Issued Date-Time: 04/01/2018 14:45 Notice Type: IM Discharge Notice Notice Delivered To: Patient Relationship to Patient: Self Dial Painter Name: Delivery Method: HAND - Hand Delivered Kylee Days: Prior Verbal Notification: Recipient Understood Notice: Yes Recipient Signature: Yes Med Rec Note Co-signed by Attending: Coverage Notice Comment: Last DP export: 04/01/18 6:54 p Patient Name: JANN RUBALCAVA Page [phone] at 2000 All edits/amendments must be made on the electronic document DICTATION DATE: 04/01/181999 JAVA LEAD DEVELOPER: NILA 04/01/181999 RPT#: [id number] DC DATE:04/01/18 STATUS: DIS IN [facility] [address] [place] [address] END OF REPORT
== END 2018-04-01 17:03 | DRG 917 ==
LOC: D.ER 14:41 → D.EDHOLD 18:29 → D.ICU 18:29 → OBSVTIME 18:29 → D.ICU 20:31
PROVIDERS: Family Medicine; ADMIT Internal Medicine Nephrology
PROC: 5A1935Z Respiratory Ventilation, Less than 24 Consecutive Hours (ICD-10-PCS; principal; 2018-03-27)
PROC: 0BH17EZ Insertion of Endotracheal Airway into Trachea, Via Natural or Artificial Opening (ICD-10-PCS; 2018-03-27)
DX: T43.212A Poisoning by selective serotonin and norepinephrine reuptake inhibitors, intentional self-harm, initial encounter (principal); J96.00 Acute respiratory failure, unspecified whether with hypoxia or hypercapnia; R45.851 Suicidal ideations; T43.592A Poisoning by other antipsychotics and neuroleptics, intentional self-harm, initial encounter; E03.9 Hypothyroidism, unspecified; I10 Essential (primary) hypertension; K21.9 Gastro-esophageal reflux disease without esophagitis; J44.9 Chronic obstructive pulmonary disease, unspecified; Z91.14 Patient's other noncompliance with medication regimen; F32.9 Major depressive disorder, single episode, unspecified; F41.8 Other specified anxiety disorders; E11.65 Type 2 diabetes mellitus with hyperglycemia

== ENCOUNTER 2018-05-28 20:26 | Emergency (ER) | payer MEDICARE ==
[~2018-05-28] VITALS: Ht 165.1 cm; Wt 111.4 kg
[2018-05-28 20:26] VITALS: BP 189/107; Ht 165.1 cm; Wt 111.4 kg
[~2018-05-28 20:26] MED LIST changes: +RITALIN10 MG PO; +[UNRECOGNIZED DRUG - REMARK]; +wellbutrin
[2018-05-28] MEDS ORDERED: KLONOPIN1 MG PO (20:28)
[2018-05-28] MEDS ORDERED: LOPRESSOR25 MG PO (20:28)
[2018-05-28] MEDS ORDERED: NOVOLOG100 UNIT/1 SC (20:28)
[2018-05-28] MEDS ORDERED: NEURONTIN 300300 MG PO (20:28)
[2018-05-28] MEDS ORDERED: LEVEMIR IN100 UNITS/ SC (20:28)
[2018-05-28 20:38] LABS: BASOPHILS 0.2 % (0-2); EOSINOPHILS 2.7 % (0-7); HEMATOCRIT 41.8 % (36.0-48.0); HEMOGLOBIN 15.1 g/dL (12-16); IMMATURE GRANULOCYTES 0.3 % (0-5); LYMPHOCYTES 30.1 % (15-50); MCH 30.5 pg (26.0-34.0); MCHC 36.1 g/dL (31.0-37.0); MCV 84.4 fL (80.0-100.0); MEAN PLATELET VOLUME 9.3 fL (7.4-10.4); MONOCYTES 4.7 % (2-11); RBC 4.95 10x6/uL (4.00-5.40); RDW 12.3 % (11.5-14.5); WBC 11.1 10x3/uL (4.8-10.8)
[2018-05-28 20:52] LABS: ALBUMIN 3.5 g/dL (3.4-5.0); ANION GAP 15.2 mmol/L (8-16); BILIRUBIN - TOTAL 0.26 mg/dL (0.2-1.3); CALCIUM 8.9 mg/dL (8.5-10.1); CARBON DIOXIDE 25.4 mmol/L (21.0-32.0); CREATININE - SERUM 0.9 mg/dL (0.6-1.3); POTASSIUM - SERUM 3.6 mmol/L (3.5-5.1); PROTEIN - SERUM 7.8 g/dL (6.4-8.2)
[2018-05-28 21:08] LABS: PLATELET COUNT 291 10x3/uL (130-400)
[2018-05-28 21:18] LABS: APPEARANCE CLEAR (CLEAR); COLOR YELLOW (YELLOW)
[2018-05-28 21:19] LABS: BILIRUBIN NEGATIVE (NEGATIVE); GLUCOSE NEGATIVE (NEGATIVE); KETONE NEGATIVE (NEGATIVE); NITRITE NEGATIVE (NEGATIVE); PROTEIN NEGATIVE (NEGATIVE); UROBILINOGEN NORMAL (NORMAL)
[2018-05-28 21:24] LABS: BACTERIA MANY /hpf (NONE SEEN); RED CELLS - URINE 0-5 /hpf (0-5); WHITE CELLS - URINE 0-5 /hpf (0-5)
== END 2018-05-28 22:00 | disposition left against medical advice (07) ==
LOC: D.ER 20:26
PROVIDERS: Emergency Medicine
DX: R10.9 Unspecified abdominal pain (principal); R31.9 Hematuria, unspecified; E11.9 Type 2 diabetes mellitus without complications; I10 Essential (primary) hypertension

== ENCOUNTER 2018-06-23 03:09 | Emergency (ER) | payer MEDICARE ==
[~2018-06-23] VITALS: Ht 165.1 cm; Wt 118.2 kg
[~2018-06-23 03:09] MED LIST changes: +LEVEMIR IN100 UNITS/ SC; +NOVOLOG100 UNIT/1 SC
[2018-06-23 03:12] VITALS: Ht 165.1 cm; Wt 118.2 kg
[2018-06-23 03:56] LABS: BASOPHILS 0.2 % (0-2); EOSINOPHILS 3.3 % (0-7); HEMATOCRIT 43.3 % (36.0-48.0); HEMOGLOBIN 15.5 g/dL (12-16); IMMATURE GRANULOCYTES 0.3 % (0-5); LYMPHOCYTES 38.2 % (15-50); MCH 30.2 pg (26.0-34.0); MCHC 35.8 g/dL (31.0-37.0); MCV 84.4 fL (80.0-100.0); MEAN PLATELET VOLUME 9.4 fL (7.4-10.4); MONOCYTES 6.9 % (2-11); NEUTROPHILS 51.1 % (40-80); PLATELET COUNT 272 10x3/uL (130-400); RBC 5.13 10x6/uL (4.00-5.40); RDW 12.4 % (11.5-14.5); WBC 10.5 10x3/uL (4.8-10.8)
[2018-06-23 04:19] LABS: ANION GAP 17.6 mmol/L (8-16); BILIRUBIN - TOTAL 0.35 mg/dL (0.2-1.3); CALCIUM 9.4 mg/dL (8.5-10.1); CARBON DIOXIDE 22.2 mmol/L (21.0-32.0); CREATININE - SERUM 1.1 mg/dL (0.6-1.3); POTASSIUM - SERUM 3.8 mmol/L (3.5-5.1); PROTEIN - SERUM 8.2 g/dL (6.4-8.2); THYROID STIMULATING HORMONE 27.98 uIU/mL (0.36-3.74)
[2018-06-23 04:26] LABS: APPEARANCE CLEAR (CLEAR); BILIRUBIN NEGATIVE (NEGATIVE); COLOR YELLOW (YELLOW); GLUCOSE 1000 mg/dL (NEGATIVE); KETONE SMALL mg/dL (NEGATIVE); NITRITE NEGATIVE (NEGATIVE); PROTEIN NEGATIVE (NEGATIVE); SPECIFIC GRAVITY 1.025 (1.005-1.020); UROBILINOGEN NORMAL (NORMAL)
[2018-06-23 04:27] LABS: UDS - AMPHET NEGATIVE QUAL (NEGATIVE); UDS - BARB NEGATIVE QUAL (NEGATIVE); UDS - BENZO POSITIVE QUAL (NEGATIVE); UDS - COCAINE POSITIVE QUAL (NEGATIVE); UDS - OPIATE NEGATIVE QUAL (NEGATIVE); UDS - PCP NEGATIVE QUAL (NEGATIVE); UDS - THC POSITIVE QUAL (NEGATIVE)
[2018-06-23] MEDS ORDERED: CYMBALTA30 MG PO (05:01)
[2018-06-23 20:12] VITALS: BP 137/89
== END 2018-06-23 20:13 ==
LOC: D.ER 03:09
PROVIDERS: Family Medicine
DX: R45.851 Suicidal ideations (principal); T65.91XA Toxic effect of unspecified substance, accidental (unintentional), initial encounter; Y92.019 Unspecified place in single-family (private) house as the place of occurrence of the external cause; E11.65 Type 2 diabetes mellitus with hyperglycemia; Z79.4 Long term (current) use of insulin; E03.9 Hypothyroidism, unspecified; Z91.14 Patient's other noncompliance with medication regimen

== ENCOUNTER 2018-07-16 14:22 | Emergency (ER) | payer MEDICARE ==
[2018-06-23 03:12] VITALS: Ht 165.1 cm; Wt 111.4 kg
[~2018-07-16] VITALS: Ht 165.1 cm; Wt 111.4 kg
[~2018-07-16 14:22] MED LIST changes: +CYMBALTA30 MG PO
[2018-07-16] MEDS ORDERED: ESTRACE1 MG PO (14:31)
[2018-07-16] MEDS ORDERED: TRAZODONE HCL150 MG PO (14:32)
== END 2018-07-16 15:22 | disposition left against medical advice (07) ==
LOC: D.ER 14:22
DX: M25.551 Pain in right hip (principal)

== ENCOUNTER 2018-09-09 16:32 | Emergency (ER) | payer MEDICARE ==
[~2018-09-09] VITALS: Ht 165.1 cm; Wt 111.4 kg
[2018-09-09 16:37] VITALS: Ht 165.1 cm; Wt 111.4 kg
[2018-09-09] MEDS ORDERED: CYMBALTA60 MG PO (16:39)
[2018-09-09] MEDS ORDERED: LATUDA80 MG PO (16:39)
[2018-09-09] MEDS ORDERED: RITALIN20 MG PO (16:39)
[2018-09-09] MEDS ORDERED: AMITRIPTYLINE H50 MG PO (16:40)
[2018-09-09] MEDS ORDERED: COZAAR25 MG PO (16:40)
[2018-09-09] MEDS ORDERED: CLOTRIM ANTIFUN15 GM TOPICAL (20:29)
[2018-09-09] MEDS ORDERED: DIFLUCAN50 MG PO (20:29)
[2018-09-09] MEDS ORDERED: TORADOL10 MG PO (20:29)
[2018-09-09 20:54] VITALS: BP 158/104
== END 2018-09-09 20:54 | disposition home or self-care (01) ==
LOC: D.ER 16:32
DX: B37.2 Candidiasis of skin and nail (principal); E11.9 Type 2 diabetes mellitus without complications; I10 Essential (primary) hypertension

== ENCOUNTER 2019-04-12 16:11 | Emergency (ER) | payer MEDICARE, OTHER ==
[~2019-04-12] VITALS: Ht 165.1 cm; Wt 100.0 kg
[~2019-04-12 16:11] MED LIST changes: +AMITRIPTYLINE H50 MG PO; +CLOTRIM ANTIFUN15 GM TOPICAL; +COZAAR25 MG PO; +DIFLUCAN50 MG PO; +LATUDA80 MG PO; +RITALIN20 MG PO; +TAMIFLU75 MG PO; +TORADOL10 MG PO; +ZOFRAN ODT4 MG/UDTAB PO
[2019-04-12 16:29] VITALS: Ht 165.1 cm; Wt 100.0 kg
[2019-04-12 17:11] LABS: BILIRUBIN NEGATIVE (NEGATIVE); GLUCOSE 1000 mg/dL (NEGATIVE); KETONE NEGATIVE (NEGATIVE); NITRITE NEGATIVE (NEGATIVE); SPECIFIC GRAVITY 1.015 (1.005-1.020); UROBILINOGEN NORMAL (NORMAL)
[2019-04-12 18:34] VITALS: BP 142/86
== END 2019-04-12 18:44 | disposition left against medical advice (07) ==
LOC: D.ER 16:11
PROVIDERS: Family Medicine
DX: R10.9 Unspecified abdominal pain (principal); Z53.29 Procedure and treatment not carried out because of patient's decision for other reasons; E11.9 Type 2 diabetes mellitus without complications; E07.9 Disorder of thyroid, unspecified; I10 Essential (primary) hypertension; Z72.0 Tobacco use; Z79.4 Long term (current) use of insulin

== ENCOUNTER 2019-05-01 03:06 | Inpatient (IN) | payer MEDICARE, OTHER ==
[~2019-05-01] VITALS: Ht 165.1 cm; Wt 113.4 kg
--- NOTE | 2019-05-01 03:40 | NUR ---
ANSWERED PT'S CALL LIGHT, PT REQUESTING PAIN MEDICATION, EDP NOTIFIED. VERBAL ORDER FOR 1000MG TYLENOL PO. PT REFUSED MEDICATION STATES "THAT'S STUPID I CAN TAKE TYLENOL AT HOME."
--- NOTE | 2019-05-01 04:05 | NUR ---
PT PUSHED CALL LIGHT BUTTON WHILE NURSES WERE TIED UP WITH OTHER PT AND WHEN THIS NURSE SAT DOWN TO DOCUMENT A PROCEDURE PT CAME OUT AND YELLED, "ARE YALL JUST GOING TO LISTEN TO MY CALL LIGHT AND NOT ANSWER IT?" THIS NURSE EXPLAINED THAT AT THE TIME ALL NURSES WERE BUSY AND WOULD BE RIGHT WITH HER. WHEN ENTERING THE ROOM PT SAID, "I AM SUICIDAL AND HAVE BEEN FOR A WEEK BECAUSE I WASNT ABLE TO GET MY MEDICATION.". THIS NURSE INFORMED THE PT THAT THE EDP WOULD BE INFORMED. CALLED CLASSROOM TEACHER TO CONFIRM THAT A BEHAVIORAL SCREENER WAS INFORMED. CLASSROOM TEACHER CONFIRMED.
--- NOTE | 2019-05-01 04:16 | NUR ---
MENTAL HEALTH RN AT BEDSIDE FOR ASSESSMENT
--- NOTE | 2019-05-01 04:39 | NUR ---
PATIENT IS SUICIDIAL, REPORTS SHE HAS BEEN OFF OF HER MEDS FOR ONE MONTH. HOWEVER SHE REPORTS FEELING SO MUCH EMOTIONAL PAIN THAT SHE JUST DOESN'T WANT TO BE HERE NO LONGER. WILL PLACE PATIENT ON 1 TO 1 OBSERVATION. PATIENT CAN NOT COMMIT TO A SAFETY PLAN AT THIS TIME.
[2019-05-01 04:41] LABS: BASOPHILS 0.3 % (0-2); EOSINOPHILS 2.7 % (0-7); HEMATOCRIT 42.7 % (36.0-48.0); HEMOGLOBIN 14.4 g/dL (12-16); IMMATURE GRANULOCYTES 0.3 % (0-5); LYMPHOCYTES 30.2 % (15-50); MCH 29.9 pg (26.0-34.0); MCHC 33.7 g/dL (31.0-37.0); MCV 88.8 fL (80.0-100.0); MEAN PLATELET VOLUME 9.6 fL (7.4-10.4); MONOCYTES 5.4 % (2-11); NEUTROPHILS 61.1 % (40-80); RBC 4.81 10x6/uL (4.00-5.40); RDW 12.8 % (11.5-14.5); WBC 9.7 10x3/uL (4.8-10.8)
--- NOTE | 2019-05-01 04:50 | NUR ---
PT MOVED TO SECURE ROOM 21 WITH SITTER. PT CHANGED INTO BLUE PAPER SCRUBS AT THIS TIME. PT BELONGINGS PLACED AT NURSING STATION. PT PULLED OFF FINGER SPLINT PT C/O IT CAME OFF. FINGER SPLINT REPLACED AT THIS TIME. INFORMED.
[2019-05-01 04:58] LABS: PLATELET COUNT 348 10x3/uL (130-400)
[2019-05-01 05:05] LABS: ALBUMIN 3.4 g/dL (3.4-5.0); ANION GAP 17.2 mmol/L (8-16); BILIRUBIN - TOTAL 0.24 mg/dL (0.2-1.3); CARBON DIOXIDE 22.6 mmol/L (21.0-32.0); CREATININE - SERUM 1.5 mg/dL (0.6-1.3); POTASSIUM - SERUM 3.8 mmol/L (3.5-5.1); PROTEIN - SERUM 7.3 g/dL (6.4-8.2)
[2019-05-01 05:30] LABS: THYROID STIMULATING HORMONE 101.31 uIU/mL (0.36-3.74)
--- NOTE | 2019-05-01 06:49 | NUR ---
PT REFUSING TO URINATE AT THIS TIME. INFORMED. NO NEW ORDERS GIVEN AT THIS TIME.
--- NOTE | 2019-05-01 07:19 | NUR ---
N/S [facility] COMPLETE 0710 TOTAL 1000CC
[2019-05-01 07:52] VITALS: BMI 41.6
[2019-05-01] MEDS ORDERED: NEURONTIN 400400 MG PO (08:23)
--- NOTE | 2019-05-01 08:25 | NUR ---
PATIENT ADMITTED TO ROOM 2209. ADMISSION COMPLETE. STATES SHE "ALREADY WANTS TO , WHY ARE YOU MAKING ME SUFFER MORE." HAS PREVIOUS OD ATTEMPTS. STATES NOT GOING TO ANSWER ALL QUESTIONS D/T ALREADY GOT ASKED IN ER AND TO "CHECK THE CHART." REQUESTED AND GIVEN PRN TYLENOL. WILL CONTINUE TO MONITOR. SUICIDE PRE IN PLACE. SITTER OUTSIDE ROOM.
--- NOTE | 2019-05-01 08:30 | NUR ---
REFUSED ADMISSION VITALS. WILL ATTEMPT AGAIN.
[2019-05-01 10:09] VITALS: Ht 165.1 cm; Wt 113.4 kg
[2019-05-01 12:17] VITALS: BP 147/88
--- NOTE | 2019-05-01 12:59 | NUR ---
HAT IN TOILET FOR UA.
--- NOTE | 2019-05-01 14:41 | NUR ---
PATIENT SLEEPING. WILL CONTINUE TO MONITOR.
[2019-05-01 16:37] VITALS: BP 116/65
--- NOTE | 2019-05-01 18:23 | NUR ---
PATIENT REQUESTING TO CALL MOM IN SNF. PER CHAMPION OF SUSTAINABLE DESIGN TUCKER, PATIENT NOT ALLOWED TO MAKE CALL SINCE ON SUICIDE PRECAUTIONS. PATIENT MADE AWARE AND ASKED NURSE TO CALL AND TELL MOM WHERE PATIENT IS, WHAT ADMITTED FOR, AND TO TELL MOM THAT PATIENT LOVES HER. WILL CALL MOM FOR PATIENT.
--- NOTE | 2019-05-01 18:29 | NUR ---
SPOKE WITH PATIENT'S MOM ON PATIENT'S BEHALF. PATIENT AWARE OF CONVERSATION AND DENIES FURTHER NEEDS. REQUESTS THAT MOM BE ADDED TO EMERGENCY CONTACTS.
[2019-05-01 18:43] LABS: UDS - AMPHET NEGATIVE QUAL (NEGATIVE); UDS - BARB NEGATIVE QUAL (NEGATIVE); UDS - BENZO NEGATIVE QUAL (NEGATIVE); UDS - COCAINE NEGATIVE QUAL (NEGATIVE); UDS - OPIATE NEGATIVE QUAL (NEGATIVE); UDS - PCP NEGATIVE QUAL (NEGATIVE); UDS - THC NEGATIVE QUAL (NEGATIVE)
[2019-05-01 20:00] VITALS: BP 111/68
[2019-05-01 20:11] LABS: BILIRUBIN NEGATIVE (NEGATIVE); GLUCOSE 1000 mg/dL (NEGATIVE); KETONE NEGATIVE (NEGATIVE); NITRITE NEGATIVE (NEGATIVE); UROBILINOGEN NORMAL (NORMAL)
[2019-05-02] VITALS: BP 114/69
[2019-05-02 04:00] VITALS: BP 121/69
[2019-05-02 08:00] VITALS: BP 130/92
--- NOTE | 2019-05-02 08:24 | NUR ---
RESTING IN BED, NO DISTRESS NOTED, C/O PAIN TO LEFT RING FINGER AND HAND, BRUSING NOTED, IV INFUSING, CONT TO MONITOR FOR SUICIDAL IDEAS
[2019-05-02 10:58] LABS: BASOPHILS 0.3 % (0-2); EOSINOPHILS 3.8 % (0-7); HEMOGLOBIN 13.8 g/dL (12-16); IMMATURE GRANULOCYTES 0.4 % (0-5); LYMPHOCYTES 43.3 % (15-50); MCH 36.9 pg (26.0-34.0); MCHC 41.6 g/dL (31.0-37.0); MCV 88.8 fL (80.0-100.0); MEAN PLATELET VOLUME 9.9 fL (7.4-10.4); MONOCYTES 4.8 % (2-11); NEUTROPHILS 47.4 % (40-80); PLATELET COUNT 333 10x3/uL (130-400); RDW 12.9 % (11.5-14.5)
[2019-05-02 11:04] LABS: HEMATOCRIT 33.2 % (36.0-48.0); RBC 3.74 10x6/uL (4.00-5.40); WBC 7.1 10x3/uL (4.8-10.8)
[2019-05-02 11:11] LABS: ALBUMIN 2.7 g/dL (3.4-5.0); ANION GAP 14.1 mmol/L (8-16); BILIRUBIN - TOTAL 0.2 mg/dL (0.2-1.3); CALCIUM 8.2 mg/dL (8.5-10.1); CARBON DIOXIDE 20.5 mmol/L (21.0-32.0); POTASSIUM - SERUM 3.6 mmol/L (3.5-5.1); PROTEIN - SERUM 6.5 g/dL (6.4-8.2)
[2019-05-02 11:13] LABS: CREATININE - SERUM 0.9 mg/dL (0.6-1.3)
--- NOTE | 2019-05-02 11:57 | NUR ---
CONT 1:1 WITH PT DUE TO SUICIDE THREAT, CONT TO MONITOR
[2019-05-02 12:01] VITALS: BP 155/85
[2019-05-02 17:17] VITALS: BP 159/100
[2019-05-02 19:33] VITALS: BP 157/101
--- NOTE | 2019-05-02 19:51 | NUR ---
PATIENT UPSET. STATING SHE WANTS SOMETHING MORE FOR PAIN. PAGED OUTDOOR EMERGENCY CARE TECHNICIAN DIRECTOR COMMUNITY ORGANIZATION. PATIENT YELLING STATING "I SHOULD'VE JUST KILLED MYSELF INSTEAD OF COMING HERE BECAUSE ALL I AM DOING IS SUFFERING ANYWAYS." RN ONE ON ONE AWARE.
--- NOTE | 2019-05-03 01:15 | NUR ---
PATIENT RESTING. UP AND DOWN MOST OF THE NIGHT.
--- NOTE | 2019-05-03 03:41 | NUR ---
INCONTINENT BM. CLEANED AND APPLIED BOUDREAUXS. REPOSITIONED PATIENT.
[2019-05-03 04:21] VITALS: BP 121/71
[2019-05-03 05:58] LABS: BASOPHILS 0.3 % (0-2); EOSINOPHILS 3.7 % (0-7); HEMATOCRIT 38.3 % (36.0-48.0); HEMOGLOBIN 12.9 g/dL (12-16); IMMATURE GRANULOCYTES 0.3 % (0-5); LYMPHOCYTES 48.4 % (15-50); MCH 29.7 pg (26.0-34.0); MCHC 33.7 g/dL (31.0-37.0); MCV 88.2 fL (80.0-100.0); MEAN PLATELET VOLUME 9.5 fL (7.4-10.4); MONOCYTES 5.7 % (2-11); NEUTROPHILS 41.6 % (40-80); PLATELET COUNT 317 10x3/uL (130-400); RBC 4.34 10x6/uL (4.00-5.40); RDW 12.8 % (11.5-14.5); WBC 6.5 10x3/uL (4.8-10.8)
[2019-05-03 06:05] LABS: ALBUMIN 2.9 g/dL (3.4-5.0); ALKALINE PHOSPHATASE 114 U/L (30-120); BILIRUBIN - TOTAL 0.14 mg/dL (0.2-1.3); CALCIUM 8.6 mg/dL (8.5-10.1); CARBON DIOXIDE 25.5 mmol/L (21.0-32.0); CHLORIDE - SERUM 108 mmol/L (98-107); CREATININE - SERUM 0.8 mg/dL (0.6-1.3); PROTEIN - SERUM 5.9 g/dL (6.4-8.2); SODIUM 143 mmol/L (136-145); UREA NITROGEN 11 mg/dL (7-18); eGFR NON AFRICAN AMERICAN 84 mL/min (90-120)
[2019-05-03 06:06] LABS: ALT (SGPT) 18 U/L (10-68); CALC OSMOLALITY 282 mosm/kg (275-300); GLUCOSE 87 mg/dL (74-106)
--- NOTE | 2019-05-03 07:53 | NUR ---
RESTING IN BED, NO DISTRESS NOTED, IV INFUSING, CONT TO MONITOR SUGARS, 1:1 CONT
[2019-05-03 09:22] VITALS: BP 127/82
--- NOTE | 2019-05-03 10:07 | NUR ---
patient refused to answer the question to the frequent screener. pt stated she has a migrane and a broken finger."
--- NOTE | 2019-05-03 12:45 | NUR ---
MEDICATED FOR ELEVATED BP, WILL RECHECK
[2019-05-03 13:57] VITALS: BP 172/108
--- NOTE | 2019-05-03 14:16 | NUR ---
CIRO OK WITH ANNIA WRAP TO SPLINT LEFT RING FINGER LONG PT IS A 1:1
[2019-05-03 16:42] VITALS: BP 151/106
--- NOTE | 2019-05-03 17:00 | NUR ---
SPOKE WITH CIRO LEGAL LIBRARIAN ABOUT PT ELEVATED BP AFTER CLONIDINE AND NORCO, NEW ORDERS NOTED, CONT TO MONITOR BP PAIN AND SUGARS
[2019-05-03 17:13] VITALS: BP 129/84
--- NOTE | 2019-05-03 19:15 | NUR ---
PATIENT ALERT AND ORIENTED. WATCHING TV AT THIS TIME. ONE TO ONE PRECAUTIONS IN PLACE. PATIENT HAS RIGHT FOREARM IV THAT IS INFUSING NS @ 125. LEFT HAND IS ANNIA WRAPPED DUE TO FOURTH DIGIT FRACTURE. DENIES FURTHER NEEDS AT THIS TIME. CALL LIGHT IN REACH. CPOC.
[2019-05-03 20:00] VITALS: BP 118/72
--- NOTE | 2019-05-03 20:50 | NUR ---
PATIENT REQUESTED ZOFRAN, PROVIDED. DENIES FURTHER NEEDS AT THIS TIME. CPOC.
[2019-05-04] VITALS: BP 144/79
--- NOTE | 2019-05-04 01:48 | NUR ---
I have reviewed this patient and I concur with the Shift Assessment completed by the Licensed Practical Nurse today this shift.
--- NOTE | 2019-05-04 02:45 | NUR ---
PATIENT REQUESTED ZOFRAN, PROVIDED. PATIENT TOLERATED WELL.
[2019-05-04 04:00] VITALS: BP 128/76
[2019-05-04 05:02] LABS: BASOPHILS 0.3 % (0-2); EOSINOPHILS 4.3 % (0-7); HEMATOCRIT 40.3 % (36.0-48.0); HEMOGLOBIN 13.3 g/dL (12-16); IMMATURE GRANULOCYTES 0.3 % (0-5); LYMPHOCYTES 49.1 % (15-50); MCH 29.3 pg (26.0-34.0); MCV 88.8 fL (80.0-100.0); MEAN PLATELET VOLUME 9.3 fL (7.4-10.4); MONOCYTES 5.3 % (2-11); NEUTROPHILS 40.7 % (40-80); PLATELET COUNT 310 10x3/uL (130-400); RBC 4.54 10x6/uL (4.00-5.40); RDW 12.9 % (11.5-14.5); WBC 7.5 10x3/uL (4.8-10.8)
[2019-05-04 05:18] LABS: ANION GAP 12.5 mmol/L (8-16); BILIRUBIN - TOTAL 0.11 mg/dL (0.2-1.3); CALCIUM 8.5 mg/dL (8.5-10.1); CARBON DIOXIDE 25.2 mmol/L (21.0-32.0); CREATININE - SERUM 0.9 mg/dL (0.6-1.3); POTASSIUM - SERUM 3.7 mmol/L (3.5-5.1); PROTEIN - SERUM 6.7 g/dL (6.4-8.2)
[2019-05-04 08:55] VITALS: BP 137/87
--- NOTE | 2019-05-04 11:31 | MORECARE ---
CASE MANAGEMENT DISCHARGE SUMMARY PATIENT: JANN RUBALCAVA UNIT: [id number] ADM DATE: 05/01/19 AGE: 43 : 77 SEX: F ROOM/BED: D.2209 AUTHOR: GONZALEZ CALHOUN PHYSICIAN: REFERRING PHYSICIAN: TONY CARVALHO MD DATE OF SERVICE: 05/04/19 Discharge Plan Patient Name: JANN RUBALCAVA [facility] [facility] 1975 Planned Disposition: Psych facility Anticipated Discharge Date: Discharge Date: Expected LOS: Initial Reviewer: [email or web address] Initial Review Date: 05/01/2019 Generated: 05/04/19 12:30 pm Comments DCP- Discharge Planning Updated by [email or web address]: Nicole Khalil on 05/04/19 10:[address] I have started the process to get patient transferred to inpatient psych center. I called the Easy admit and spoke with Prema. I faxed over clinical paperwork to her. CM will assist as needed. External Providers External Provider: [facility] Next Contact Date: Service Request Date: Service Type: Resolution: Reviewer: Comments: Patient Name: JANN RUBALCAVA Page [phone] at 1131 All edits/amendments must be made on the electronic document DICTATION DATE: 05/04/19 1130 END WORKER: NILA 05/04/19 1130 RPT#: [id number] DC DATE: STATUS: ADM IN [facility] [address] [place] [address] END OF REPORT
[2019-05-04 11:51] VITALS: BP 131/85
--- NOTE | 2019-05-04 13:09 | MORECARE ---
CASE MANAGEMENT DISCHARGE SUMMARY PATIENT: JANN RUBALCAVA UNIT: [id number] ADM DATE: 05/01/19 AGE: 43 : 77 SEX: F ROOM/BED: D.2200 AUTHOR: GONZALEZ CALHOUN PHYSICIAN: REFERRING PHYSICIAN: TONY CARVALHO MD DATE OF SERVICE: 05/04/19 Discharge Plan Patient Name: JANN RUBALCAVA [facility] [facility] 1975 Planned Disposition: Psych facility Anticipated Discharge Date: Discharge Date: Expected LOS: Initial Reviewer: [email or web address] Initial Review Date: 05/01/2019 Generated: 05/04/19 2:09 pm Comments DCP- Discharge Planning Updated by [email or web address]: Nicole Khalil on 05/04/19 12:[address] Nona with transfer center called and stated that [facility] not accept her because she has been there the maximum amount of times, I have asked her to try [facility] DCP- Discharge Planning Updated by [email or web address]: Nicole Khalil on 05/04/19 10:[address] I have started the process to get patient transferred to inpatient psych center. I called the Easy admit and spoke with Prema. I faxed over clinical paperwork to her. CM will assist as needed. Last DP export: 05/04/19 10:31 a Patient Name: JANN RUBALCAVA Page [phone] at 1309 All edits/amendments must be made on the electronic document DICTATION DATE: 05/04/19 1309 INSIGHTS MANAGER: NILA 05/04/19 1309 RPT#: [id number] DC DATE: STATUS: ADM IN [facility] [address] [place] [address] END OF REPORT
--- NOTE | 2019-05-04 13:18 | NUR ---
Nutrition follow-up: Diet: Consistent CHO PO intake 100% of last 3 meals Pt has had DM diet education several times in the past. Labs reviewed; glucose under better control Wt: 249# RDN following.
--- NOTE | 2019-05-04 15:04 | MORECARE ---
CASE MANAGEMENT DISCHARGE SUMMARY PATIENT: JANN RUBALCAVA UNIT: [id number] ADM DATE: 05/01/19 AGE: 43 : [birth year] SEX: F ROOM/BED: D.2209 AUTHOR: GONZALEZ CALHOUN PHYSICIAN: REFERRING PHYSICIAN: TONY CARVALHO MD DATE OF SERVICE: 05/04/19 Discharge Plan Patient Name: JANN RUBALCAVA [facility] [facility] 1975 Planned Disposition: Psych facility Anticipated Discharge Date: Discharge Date: Expected LOS: Initial Reviewer: [email or web address] Initial Review Date: 05/01/2019 Generated: 05/04/19 4:04 pm Comments DCP- Discharge Planning Updated by [email or web address]: Nicole Khalil on 05/04/19 2:[address] Nona with transfer center called and stated that [facility] was full and was going to keep trying other places. DCP- Discharge Planning Updated by [id number]: Nicole Khalil on 05/04/19 12:[address] Nona with transfer center called and stated that [facility] would not accept her because she has been there the maximum amount of times, I have asked her to try [facility] DCP- Discharge Planning Updated by [email or web address]: Nicole Khalil on 05/04/19 10:[address] I have started the process to get patient transferred to inpatient psych center. I called the Easy admit and spoke with Prema. I faxed over clinical paperwork to her. CM will assist as needed. Last DP export: 05/04/19 12:09 p Patient Name: JANN RUBALCAVA Page [phone] at 1504 All edits/amendments must be made on the electronic document DICTATION DATE: 05/04/19 150 SIMULATION DEVELOPER: NILA 05/04/19 1504 RPT#: [id number] DC DATE: STATUS: ADM IN [facility] [address] [place] [address] END OF REPORT
[2019-05-04 15:26] VITALS: BP 143/94
[2019-05-04] MEDS ORDERED: LISINOPRIL10 MG PO (17:26)
[2019-05-04] MEDS ORDERED: ATIVAN0.5 MG PO (17:33)
[2019-05-04] MEDS ORDERED: LEVOTHYROXINE100 MCG PO (17:35)
--- NOTE | 2019-05-04 17:35 | NUR ---
PHONE CALL FROM JUAN AT THE TRANSFER CENTER. DAVID NURSE INJECTION MOLDING MACHINE OFFBEARER WITH [facility] ON OTHER LINE. SAID THEY WOULD ACCEPT HER AT [facility] WOULD TAKE HER. DR ANAM JACKSON AND ROOM 207B CALL REPORT TO FLORES AT [phone]
[2019-05-04] MEDS ORDERED: Nicoderm [PBKC] TRANSDERM (17:36)
[2019-05-04] MEDS ORDERED: PROTONIX40 MG PO (17:36)
[2019-05-04] MEDS ORDERED: HCTZ25 MG PO (17:36)
[2019-05-04] MEDS ORDERED: CATAPRES0.1 MG PO (17:39)
[2019-05-04] MEDS ORDERED: HYDROCODON-ACE1 EAC7 PO (17:39)
[2019-05-04] MEDS ORDERED: ZOFRAN4 MG PO (18:37)
--- NOTE | 2019-05-04 19:44 | NUR ---
EMS CALLED. REPORT CALLED TO KRISTOFER REYNA AT [facility] IN [facility]. 45 MIN OR SO FOR EMS BU[facility]LE STAP[employer]ER.
[2019-05-04 20:29] VITALS: BP 115/71
--- NOTE | 2019-05-04 21:06 | NUR ---
REC'D IN BED WATCHING TV. DENIES ANY DISCOMFORT AT PRESENT TIME.ACEWRAP DRSG. DRY AND INTACT TO LEFT FOREARM AND HAND.NEUROVASCULAR STATUS WNL.AWAITING AMBULAMBULANCE FOR DISCHARGE TO [facility] IN [place].
--- NOTE | 2019-05-04 21:15 | NUR ---
AMBULANCE HERE FOR TRANSFER VIA STRET[facility]
--- NOTE | 2019-05-05 09:24 | MORECARE ---
CASE MANAGEMENT DISCHARGE SUMMARY PATIENT: JANN RUBALCAVA UNIT: [id number] ADM DATE: 05/01/19 AGE: 43 : 77 SEX: F ROOM/BED: D.2209 AUTHOR: GONZALEZ CALHOUN PHYSICIAN: REFERRING PHYSICIAN: TONY CARVALHO MD DATE OF SERVICE: 05/05/19 Discharge Plan Patient Name: JANN RUBALCAVA [facility] [facility] 1975 Planned Disposition: Psych facility Anticipated Discharge Date: Discharge Date: 05/04/2019 Expected LOS: Initial Reviewer: [email or web address] Initial Review Date: 05/01/2019 Generated: 05/05/19 10:24 am Comments DCP- Discharge Planning Updated by [email or web address]: Nicole Khalil on 05/05/19 8:[address] PATIENT WAS TRANSFERED TO [facility] IN [place] INPATIENT PSYCH PER NURSES NOTES DCP- Discharge Planning Updated by [email or web address]: Nicole Khalil on 05/04/19 2:[address] Nona with transfer center called and stated that [facility] was full and was going to keep trying other places. DCP- Discharge Planning Updated by [email or web address]: Nicole Khalil on 05/04/19 12:[address] Nona with transfer center called and stated that [facility] would not accept her because she has been there the maximum amount of times, I have asked her to try [facility] DCP- Discharge Planning Updated by [email or web address]: Nicole Khalil on 05/04/19 10:[address] I have started the process to get patient transferred to inpatient psych center. I called the Easy admit and spoke with Prema. I faxed over clinical paperwork to her. CM will assist as needed. Last DP export: 05/04/19 2:04 p Patient Name: JANN RUBALCAVA Page [phone] at 0924 All edits/amendments must be made on the electronic document DICTATION DATE: 05/05/19923 MATCHER OFFBEARER: NILA 05/05/19923 RPT#: [id number] DC DATE:05/04/19 STATUS: DIS IN [facility] [address] [place] [address] END OF REPORT
== END 2019-05-04 21:20 | DRG 563 ==
LOC: D.ER 03:06 → D.MS 06:19
PROVIDERS: Family Medicine; ADMIT Emergency Medicine; ATTEND Emergency Medicine
DX: S62.625A Displaced fracture of middle phalanx of left ring finger, initial encounter for closed fracture (principal); E87.1 Hypo-osmolality and hyponatremia; Z68.41 Body mass index [BMI] 40.0-44.9, adult; R45.851 Suicidal ideations; F33.2 Major depressive disorder, recurrent severe without psychotic features; E11.65 Type 2 diabetes mellitus with hyperglycemia; E03.9 Hypothyroidism, unspecified; I10 Essential (primary) hypertension; J44.9 Chronic obstructive pulmonary disease, unspecified; K21.9 Gastro-esophageal reflux disease without esophagitis; F41.8 Other specified anxiety disorders; F90.9 Attention-deficit hyperactivity disorder, unspecified type; E66.01 Morbid (severe) obesity due to excess calories; Y04.0XXA Assault by unarmed brawl or fight, initial encounter; F43.10 Post-traumatic stress disorder, unspecified; F41.1 Generalized anxiety disorder

== ENCOUNTER 2019-05-21 06:50 | Inpatient (IN) | payer MEDICARE, OTHER ==
[~2019-05-21] VITALS: Ht 165.1 cm; Wt 112.0 kg
[2019-05-21] VITALS (7 sets, daily range): BP systolic 106–153; BP diastolic 58–95; BMI 41.1
[~2019-05-21 06:50] MED LIST changes: +ATIVAN0.5 MG PO; +CATAPRES0.1 MG PO; +HCTZ25 MG PO; +HYDROCODON-ACE1 EAC7 PO; +LEVOTHYROXINE100 MCG PO; +NEURONTIN 400400 MG PO; +Nicoderm [PBKC] TRANSDERM; +ZOFRAN4 MG PO
[2019-05-21 07:27] LABS: BASOPHILS 0.2 % (0-2); EOSINOPHILS 2.9 % (0-7); HEMATOCRIT 45.6 % (36.0-48.0); HEMOGLOBIN 15.2 g/dL (12-16); IMMATURE GRANULOCYTES 0.4 % (0-5); LYMPHOCYTES 36.2 % (15-50); MCH 29.6 pg (26.0-34.0); MCHC 33.3 g/dL (31.0-37.0); MCV 88.7 fL (80.0-100.0); MEAN PLATELET VOLUME 10.1 fL (7.4-10.4); MONOCYTES 6.9 % (2-11); NEUTROPHILS 53.4 % (40-80); RBC 5.14 10x6/uL (4.00-5.40); RDW 12.8 % (11.5-14.5); WBC 8.5 10x3/uL (4.8-10.8)
[2019-05-21 07:28] LABS: PLATELET COUNT 209 10x3/uL (130-400)
[2019-05-21 07:51] LABS: ANION GAP 15.4 mmol/L (8-16); BILIRUBIN - TOTAL 0.44 mg/dL (0.2-1.3); CALCIUM 9.1 mg/dL (8.5-10.1); CARBON DIOXIDE 23.8 mmol/L (21.0-32.0); CREATININE - SERUM 1.2 mg/dL (0.6-1.3); MAGNESIUM - SERUM 1.7 mg/dL (1.8-2.4); POTASSIUM - SERUM 4.2 mmol/L (3.5-5.1); PROTEIN - SERUM 8.4 g/dL (6.4-8.2)
[2019-05-21 08:24] LABS: BILIRUBIN NEGATIVE (NEGATIVE); GLUCOSE 1000 mg/dL (NEGATIVE); KETONE NEGATIVE (NEGATIVE); NITRITE NEGATIVE (NEGATIVE); SPECIFIC GRAVITY 1.015 (1.005-1.020); UROBILINOGEN NORMAL (NORMAL)
[2019-05-21] MEDS ORDERED: ADDERALL 20 MG20 M1 PO (09:37)
[2019-05-21] MEDS ORDERED: THORAZINE50 MG PO (09:38)
--- NOTE | 2019-05-21 09:40 | NUR ---
MARIBELL TAYLOR AT FOR EVAL/ASSESSMENT
--- NOTE | 2019-05-21 10:10 | NUR ---
DR. RAMIREZ NOTFIED AND REVIEWED PT'S BEHAVIOR AND ASSESSMENT RESULTS. PT IS A LOW RISK PER DR. RAMIREZ. DR. RAMIREZ STATED TO GIVE RESOURECES TO PT AT TIME OF DISCHARGE. NO FURTHER ORDERS AT THIS TIME. RESOURCES REVIWED WITH PT AND SHE VERBALIZIED UNDERSTANDING.
--- NOTE | 2019-05-21 10:19 | NUR ---
FSBS= 345 MG/DL. DIABETIC MEAL TRAY ORDERED
--- NOTE | 2019-05-21 10:30 | NUR ---
DIABETIC DIET SERVED
--- NOTE | 2019-05-21 10:44 | NUR ---
REPORT CALLED TO MARIBELL ALMONTE
--- NOTE | 2019-05-21 12:06 | NUR ---
PT RATED HIGH RISK ON SUICIDE ASSESSMENT DONE BY ME. SPOKEN WITH KEITH WITH MENTAL HEALTH DEPARTMENT, SHE STATED PT WAS ASSESSED IN ER AND GIVEN A LOW RISK SCORE, NO NEED TO REASSESS. NOTIFIED CHECKER AND PACKER, OF RATING AND THAT WE WERE MOVING PT BACK TO ROOM 2208 WHERE WE CURRENTLY HAVE A SITTER WATCHING ANOTHER PT.
--- NOTE | 2019-05-21 16:43 | MORECARE ---
CASE MANAGEMENT DISCHARGE SUMMARY PATIENT: JANN RUBALCAVA UNIT: [id number] ADM DATE: 05/21/19 AGE: 43 : [birth year] SEX: F ROOM/BED: D.2208 AUTHOR: GONZALEZ CALHOUN PHYSICIAN: REFERRING PHYSICIAN: MAVIS RICARDO MD DATE OF SERVICE: 05/21/19 Discharge Plan Patient Name: JANN RUBALCAVA [facility] [facility] 1975 Planned Disposition: Psych facility Anticipated Discharge Date: Discharge Date: Expected LOS: Initial Reviewer: [email or web address] Initial Review Date: 05/21/2019 Generated: 05/21/19 5:42 pm Patient Name: JANN RUBALCAVA Page [id number] at 1643 All edits/amendments must be made on the electronic document DICTATION DATE: 05/21/191641 SUPERVISOR FELTING: NILA 05/21/191641 RPT#: [id number] DC DATE: STATUS: ADM IN [facility] [address] [place] [address] END OF REPORT
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
[2019-05-22] VITALS: BP 131/76
[2019-05-22 04:00] VITALS: BP 121/81
--- NOTE | 2019-05-22 06:33 | NUR ---
PATIENT STATED SHE URNATED X2 THIS SHIFT, BUT NO URINE IN HAT THAT HAS BEEN IN PLACE IN [facility] ALL SHIFT.
[2019-05-22 08:36] LABS: BASOPHILS 0.1 % (0-2); HEMATOCRIT 39.9 % (36.0-48.0); HEMOGLOBIN 13.1 g/dL (12-16); IMMATURE GRANULOCYTES 0.4 % (0-5); LYMPHOCYTES 44.4 % (15-50); MCHC 32.8 g/dL (31.0-37.0); MCV 88.3 fL (80.0-100.0); MEAN PLATELET VOLUME 9.5 fL (7.4-10.4); MONOCYTES 5.3 % (2-11); NEUTROPHILS 46.8 % (40-80); RBC 4.52 10x6/uL (4.00-5.40); RDW 12.6 % (11.5-14.5); WBC 8.5 10x3/uL (4.8-10.8)
[2019-05-22 08:37] LABS: UDS - AMPHET NEGATIVE QUAL (NEGATIVE); UDS - BARB NEGATIVE QUAL (NEGATIVE); UDS - BENZO NEGATIVE QUAL (NEGATIVE); UDS - COCAINE POSITIVE QUAL (NEGATIVE); UDS - OPIATE NEGATIVE QUAL (NEGATIVE); UDS - PCP NEGATIVE QUAL (NEGATIVE); UDS - THC NEGATIVE QUAL (NEGATIVE)
[2019-05-22 08:41] LABS: PLATELET COUNT 286 10x3/uL (130-400)
[2019-05-22 08:58] LABS: BILIRUBIN - TOTAL 0.34 mg/dL (0.2-1.3); CALCIUM 8.2 mg/dL (8.5-10.1); CARBON DIOXIDE 22.3 mmol/L (21.0-32.0); CREATININE - SERUM 0.9 mg/dL (0.6-1.3); PROTEIN - SERUM 6.7 g/dL (6.4-8.2)
[2019-05-22 09:01] LABS: ANION GAP 13.2 mmol/L (8-16); POTASSIUM - SERUM 3.5 mmol/L (3.5-5.1)
[2019-05-22 09:39] VITALS: BP 132/90
[2019-05-22 12:48] VITALS: BP 137/104
[2019-05-22 12:54] VITALS: Ht 165.1 cm; Wt 112.0 kg
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
[2019-05-22 15:47] VITALS: BP 120/82
[2019-05-22 20:00] VITALS: BP 118/74
[2019-05-23] VITALS: BP 123/70
[2019-05-23 04:00] VITALS: BP 118/74
--- NOTE | 2019-05-23 06:31 | NUR ---
I have reviewed this patient and I concur with the Shift Assessment completed by the Licensed Practical Nurse today this shift.
[2019-05-23 09:00] VITALS: BP 98/53
--- NOTE | 2019-05-23 09:00 | NUR ---
PAT EASY TO AROUSE AND REFUSES NEURONTIN THIS MORNING DUE TO MAKES HER SLEEPY. IVF INFUSING TO RT. F/A WITH NO S/S OF INFECTION/INFILTRATION. O2 2L N/C. HRRR AND LUNGS CTA. NO PERIPHERAL EDEMA NOTED. ENCOURAGED TO USE CALL LIGHT FOR ASSIST.
[2019-05-23 14:18] VITALS: BP 146/80
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
--- NOTE | 2019-05-23 19:00 | NUR ---
BEDSIDE REPORT RECEIVED AND CARE OF PT ASSUMED. PT LYING IN SUPINE POSITION WATCHING TV. IV TO RIGHT FA PATENT WITH NS INFUSING AT 30 ML/HR. WILL MONITOR FOR NEEDS.
[2019-05-23 20:00] VITALS: BP 156/92
--- NOTE | 2019-05-23 20:30 | NUR ---
HS MEDICATIONS GIVEN. FSBS 167 THIS CHECK REQUIRING COVERAGE WITH 8 UNITS OF INSULIN PER SLIDING SCALE.
--- NOTE | 2019-05-23 21:30 | NUR ---
GAVE LARGE CUP DIET SODA OVER ICE PER REQUEST.
[2019-05-24] VITALS: BP 129/86
[2019-05-24 04:00] VITALS: BP 146/89
[2019-05-24 06:02] LABS: BASOPHILS 0.3 % (0-2); EOSINOPHILS 3.4 % (0-7); HEMATOCRIT 40.6 % (36.0-48.0); HEMOGLOBIN 13.7 g/dL (12-16); IMMATURE GRANULOCYTES 0.2 % (0-5); LYMPHOCYTES 45.6 % (15-50); MCH 29.8 pg (26.0-34.0); MCHC 33.7 g/dL (31.0-37.0); MCV 88.5 fL (80.0-100.0); MEAN PLATELET VOLUME 9.5 fL (7.4-10.4); NEUTROPHILS 45.5 % (40-80); PLATELET COUNT 240 10x3/uL (130-400); RBC 4.59 10x6/uL (4.00-5.40); RDW 12.7 % (11.5-14.5); WBC 6.4 10x3/uL (4.8-10.8)
[2019-05-24 06:40] LABS: CALC OSMOLALITY 280 mosm/kg (275-300); CALCIUM 8.5 mg/dL (8.5-10.1); CARBON DIOXIDE 22.3 mmol/L (21.0-32.0); CHLORIDE - SERUM 103 mmol/L (98-107); CREATININE - SERUM 0.8 mg/dL (0.6-1.3); GLUCOSE 227 mg/dL (74-106); MAGNESIUM - SERUM 1.5 mg/dL (1.8-2.4); POTASSIUM - SERUM 3.9 mmol/L (3.5-5.1); SODIUM 137 mmol/L (136-145); UREA NITROGEN 12 mg/dL (7-18); eGFR NON AFRICAN AMERICAN 84 mL/min (90-120)
--- NOTE | 2019-05-24 09:00 | NUR ---
ALERT AND ORIENTED X4 WITH FLAT AFFECT NOTED. UP ADLIB WITH GOOD ROM OF EXT.X4. SUICIDE PRECAUTIONS IN PLACE WITH NO THREAT NOTED AT THIS TIME. CONTINUED ONE ON ONE MONITORING WELL. DENIES ANY PAIN OR DISOCMFORT WITH LUNGS CTA AND HRRR. ENCOURGED TO USE CALL LIGHT FOR ASSSIT.
[2019-05-24 10:42] VITALS: BP 144/96
[2019-05-24 17:50] VITALS: BP 142/82
--- NOTE | 2019-05-24 17:59 | NUR ---
[facility] CALLED WITH REPORT CALLED TO TERRY BOUDREAUX RN. IV DISCONTINUED WITH PATINET BEING ACCEPTED TO FACILITY. [facility] CALLED TO TRANSFER TO ROOM 622B.
--- NOTE | 2019-05-24 19:03 | NUR ---
AMBULANCE HERE FOR TRANSFER. PATIENT VERBALIZED UNDERSTANDING OF DISCHARGE INSTRUCTION AND STABLE AT TIME OF DEPARTURE. REPORT GIVEN TO AMBLANCE STAFF. STABLE AT TIME OF DISCHARGE.
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
== END 2019-05-24 19:05 | disposition short-term general hospital (02) | DRG 637 ==
LOC: D.ER 06:50 → D.MS 09:01 → OBSVTIME 09:01 → D.MS 09:01 → D.ER 10:46 → D.MS 11:38
PROVIDERS: Family Medicine; ADMIT Internal Medicine Nephrology; ATTEND Internal Medicine Nephrology
DX: E11.65 Type 2 diabetes mellitus with hyperglycemia (principal); J96.01 Acute respiratory failure with hypoxia; E87.1 Hypo-osmolality and hyponatremia; R45.851 Suicidal ideations; F33.2 Major depressive disorder, recurrent severe without psychotic features; F17.213 Nicotine dependence, cigarettes, with withdrawal; Z59.0 Homelessness; E83.42 Hypomagnesemia; I10 Essential (primary) hypertension; E03.9 Hypothyroidism, unspecified; F41.8 Other specified anxiety disorders; F90.9 Attention-deficit hyperactivity disorder, unspecified type; S62.605A Fracture of unspecified phalanx of left ring finger, initial encounter for closed fracture; X58.XXXA Exposure to other specified factors, initial encounter; Z91.14 Patient's other noncompliance with medication regimen

== ENCOUNTER 2019-06-24 17:42 | Emergency (ER) | payer MEDICARE, OTHER ==
[~2019-06-24] VITALS: Ht 165.1 cm; Wt 112.3 kg
[~2019-06-24 17:42] MED LIST changes: +ADDERALL 20 MG20 M1 PO
[2019-06-24 17:46] VITALS: Ht 165.1 cm; Wt 112.3 kg
[2019-06-24 18:36] LABS: BASOPHILS 0.3 % (0-2); EOSINOPHILS 1.2 % (0-7); HEMATOCRIT 46.7 % (36.0-48.0); HEMOGLOBIN 16.3 g/dL (12-16); IMMATURE GRANULOCYTES 0.3 % (0-5); LYMPHOCYTES 28.6 % (15-50); MCHC 34.9 g/dL (31.0-37.0); MCV 85.8 fL (80.0-100.0); MEAN PLATELET VOLUME 9.3 fL (7.4-10.4); MONOCYTES 6.4 % (2-11); NEUTROPHILS 63.2 % (40-80); RBC 5.44 10x6/uL (4.00-5.40); RDW 12.4 % (11.5-14.5); WBC 11.2 10x3/uL (4.8-10.8)
[2019-06-24 18:43] LABS: PLATELET COUNT 382 10x3/uL (130-400)
[2019-06-24 19:03] LABS: ALBUMIN 4.2 g/dL (3.4-5.0); ANION GAP 17.1 mmol/L (8-16); BILIRUBIN - TOTAL 0.91 mg/dL (0.2-1.3); CARBON DIOXIDE 22.6 mmol/L (21.0-32.0); MAGNESIUM - SERUM 1.7 mg/dL (1.8-2.4); POTASSIUM - SERUM 4.7 mmol/L (3.5-5.1); PROTEIN - SERUM 8.9 g/dL (6.4-8.2)
[2019-06-24 19:23] LABS: BILIRUBIN NEGATIVE (NEGATIVE); GLUCOSE 1000 mg/dL (NEGATIVE); KETONE MODERATE mg/dL (NEGATIVE); NITRITE NEGATIVE (NEGATIVE); UROBILINOGEN NORMAL (NORMAL)
[2019-06-24 19:27] LABS: UDS - AMPHET NEGATIVE QUAL (NEGATIVE); UDS - BARB NEGATIVE QUAL (NEGATIVE); UDS - BENZO NEGATIVE QUAL (NEGATIVE); UDS - COCAINE POSITIVE QUAL (NEGATIVE); UDS - OPIATE NEGATIVE QUAL (NEGATIVE); UDS - PCP NEGATIVE QUAL (NEGATIVE); UDS - THC NEGATIVE QUAL (NEGATIVE)
[2019-06-24 19:34] LABS: HCG URINE NEGATIVE (NEGATIVE)
--- NOTE | 2019-06-24 19:46 | NUR ---
DR. RAMIREZ NOTIFIED AND SITTER ORDERED. SITTER AT BEDSIDE. NOTIFIED CHARGE NURSE AND ATTENDING IN REGARDS TO ASSESSMENT FINDINGS. RESOURCES GIVE TO PT AND SAFETY PLAN INITIATED.
[2019-06-25 05:00] LABS: ANION GAP 13.8 mmol/L (8-16); CARBON DIOXIDE 23.8 mmol/L (21.0-32.0)
[2019-06-25 05:11] LABS: POTASSIUM - SERUM 3.6 mmol/L (3.5-5.1)
[2019-06-25 06:46] VITALS: BP 136/82
== END 2019-06-25 06:48 | disposition other institution (70) ==
LOC: D.ER 17:42
PROVIDERS: Family Medicine
DX: E11.65 Type 2 diabetes mellitus with hyperglycemia (principal); Z91.19 Patient's noncompliance with other medical treatment and regimen; R45.851 Suicidal ideations; E07.9 Disorder of thyroid, unspecified; I10 Essential (primary) hypertension; Z72.0 Tobacco use; Z79.4 Long term (current) use of insulin